=== PATIENT | female | born 1935 | race Caucasian/White ===

== ENCOUNTER 2016-12-29 14:57 | Inpatient (IN) ==
[2016-12-29 15:46] LABS: MANUAL DIFF NEEDED? NO
[2016-12-29 15:50] LABS: URINE SOURCE CLEAN CATCH
[2016-12-29 15:50] LABS: BASO% 0.6 % (0.0-0.8); EOS# 0.12 X1000 (0.0-0.7); EOS% 1.9 % (0.0-10.0); HEMATOCRIT 38.1 % (37.0-47.0); HEMOGLOBIN 12.7 g/dL (12.0-16.0); LYMPH# 1.84 X1000 (1.2-3.4); LYMPH% 29.6 % (20.5-51.1); MCH 31.2 PG (27-31); MCHC 33.3 g/dL (33-37); MCV 93.6 FL (81-99); MONO# 0.49 X1000 (0.11-0.59); MONO% 7.9 % (1.7-9.3); MPV 11.3 FL (7.4-10.4); PLT 267 X1000 (130-400); RBC 4.07 XMIL (4.2-5.4)
[2016-12-29 15:56] LABS: BILIRUBIN URINE SMALL (NEGATIVE); BLOOD URINE SMALL (NEGATIVE); COLOR YELLOW; GLUCOSE URINE TRACE mg/dL (NEGATIVE); LEUKOCYTES URINE LARGE (NEGATIVE); NITRITE URINE NEGATIVE (NEGATIVE); PROTEIN URINE 200 mg/dL (NEGATIVE); TURBIDITY URINE HAZY (CLEAR); UROBILINOGEN URINE 8 mg/dL (NORMAL)
[2016-12-29] MEDS ORDERED: NS 1,000 ML IV ONE ×2 (15:56→15:58)
[2016-12-29 15:58] LABS: UR EPITHELIAL CELLS <10 /HPF (<10); URINE BACTERIA NEGATIVE /HPF; URINE MICRO REVIEW NEEDED? YES; URINE RBC <10 /HPF (<10); URINE WBC TNTC /HPF (<10)
[2016-12-29] MEDS ORDERED: ROCEPHIN 1 GM/NS 1 GM/50 ML IVPB IV ONE (15:59)
[2016-12-29 16:00] LABS: INR 1.12; PROTIME 11.8 Seconds (9.2-11.7); PTT 29.5 Seconds (22.0-36.0)
[2016-12-29 16:12] LABS: URINE CASTS GRANULAR PRESENT; URINE CRYSTALS CA OXALATE PRESENT
[2016-12-29 16:14] LABS: ALBUMIN 4.5 g/dL (3.5-5.0); CALCIUM 9.5 mg/dL (8.8-10.2); MAGNESIUM 2.2 mg/dL (1.5-2.7); POTASSIUM 3.7 mmol/L (3.5-5.1); TOTAL BILIRUBIN 1.13 mg/dL (0.20-1.00); TOTAL PROTEIN 7.3 g/dL (6.3-8.3)
--- NOTE | 2016-12-29 17:34 | Diag Imaging Result Document ---
PROCEDURE NAME: HEAD W/O CONTRAST - 12/29/2016 CT HEAD WITHOUT CONTRAST: FINDINGS: A dose reduction protocol was used. Compared with 03/28/2015. 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 There are mild chronic microvascular ischemic changes elsewhere. There is no indication of recent infarct, although acute infarcts may not be immediately visible. There is no evidence of hemorrhage, mass effect or midline shift. There is no skull fracture. 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 No visible acute process. No hemorrhage or mass effect.
--- NOTE | 2016-12-29 17:38 | PROVIDER DOCUMENTATION ---
This chart was entered by Reyes Leblanc Scribe, acting as scribe for Ricardo Stringer MD. HPI-Syncope/Dizziness - General Chief Complaint: Syncope Stated Complaint: SYNCOPE Time Seen by Provider: 12/29/16 15:26 Source: patient Allergies/Adverse Reactions: Patient Allergies Allergy/AdvReac Type Severity Reaction Status Date / Time No Known Allergies Allergy Verified 12/29/16 15:24 Home Medications: Home Medication List Medication Instructions Recorded Confirmed Last Taken Type Amlodipine [Norvasc] 1 tab PO DAILY 12/21/15 12/29/16 12/21/15 08:00 History Cyanocobalamin (Vitamin B-12) 1,000 mcg IJ DIRECTED 12/21/15 12/29/16 09:00 History [Cyanocobalamin Injection] Levothyroxine [Synthroid] 50 microgm PO DAILY 12/21/15 12/29/16 12/21/15 08:00 History Metoprolol [Lopressor] 50 mg PO BID 12/21/15 12/29/16 12/21/15 21:00 History Rivaroxaban [Xarelto] 10 mg PO DAILY@0600 #35 tablet 12/27/15 12/29/16 Unknown Rx Lisinopril 20 mg PO DAILY 12/29/16 12/29/16 Unknown History - History of Present Illness-Syncope/Dizzy Nature of Presenting Problem: PT WAS IN THE YARD AND PASSED OUT.EMS REPORTS WHEN THEY PLACED HER ON THE MONITOR SHE WAS NOT IN A PASSED RHYTHM THEN ABOUT 3 MINUTES PASSED AND THE PACER SPIKES STRTED SHOWING BACK UP ON THE MONITOR AND PT BECAME A&OX3 If witnessed syncope, by whom?: SONS Prior Episodes: reports: single episode today Onset/Duration: reports: just prior to arrival Timing: reports: gone now Position/Activity at time of episode: reports: standing Symptoms prior to episode: reports: other (WEAKNESS) Duration of preceding symptoms? (mins): 10 Context: reports: confused after event Loss of Consciousness: no loss of consciousness Location of injury. (If syncope resulted in an injury.): reports: none Current Symptoms: reports: none/feels normal Recently Seen Here or By Another Healthcare Provider: No Review of Systems - Adult - REVIEW OF SYSTEMS - ADULT Constitutional: denies: chills, fever, fatique Eyes: denies: discharge, decreased vision, double vision Ears, Nose, Mouth & Throat: denies: ear pain, mouth swelling, throat pain, throat swelling Cardiovascular: denies: chest pain, heart murmur, irregular heart rate, palpitations Respiratory: denies: cough, shortness of breath, wheezing Gastrointestinal: denies: abdominal pain, nausea, vomiting Genitourinary: denies: dysuria, flank pain, hematuria Musculoskeletal: denies: back pain, muscle aches, neck pain Integumentary: denies: hives, itching, rash Neurological: reports: syncope. 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 ) Other Conditions: reports: other cancer (skin ) - PRIOR SURGERIES/PROCEDURES Surgical/Procedure History: reports: pacemaker, hysterectomy, , orthopedic (extremity), other (lung sx) - IMMUNIZATION STATUS Childhood Immunizations: See Nurse Assessment Flu Vaccine: See Nurse Assessment - SOCIAL HISTORY Smoking: denies Substance Use: none/never Alcohol Use Frequency: never Living Situation: family Physical Exam-General - PHYSICAL EXAM-ADULT Initial Vital Signs Reviewed: Yes - CONSTITUTIONAL General Appearance: appears well, alert, no apparent distress - EYES Eyes: PERRL/EOMI, pink conjunctivae, anisocoria - HEAD, EARS, NOSE, MOUTH & THROAT HENMT: normocephalic/atraumatic, moist mucous membranes, normal ENT inspection, TMs normal, pharynx normal - NECK Neck: non-tender, full range of motion, supple, normal inspection - RESPIRATORY Respiratory: chest non-tender, lungs clear, normal breath sounds, no pleuratic chest pain, no respiratory distress, no accessory muscle use - CARDIOVASCULAR Cardiovascular: normal peripheral pulses, regular rate, rhythm, no edema, no gallop, no JVD, no murmur - GASTROINTESTINAL (ABDOMEN) Abdominal Exam: normal bowel sounds, non tender, soft, no organomegaly, no pulsatile mass - LYMPHATIC Lymphatic: no adenopathy - MUSCULOSKELETAL Back Exam: normal inspection, no CVA tenderness, no vertebral tenderness Extremity: normal range of motion, non-tender, normal gait, normal inspection, no pedal edema, no calf tenderness, normal capillary refill - SKIN Integumentary: normal color, normal turgor, warm/dry - PSYCHIATRIC Psych/Mental Status: normal mood/affect, normal thought content, normal thought process, oriented x 3 Progress - PLAN OF CARE/RESULTS Progress/Plan/Lab Results: Vital Signs - 8 hr 12/29/16 15:17 Pulse Rate 77 Respiratory Rate 15 Blood Pressure 92/79 O2 Sat by Pulse Oximetry 99 Laboratory Results - last 24 hr 12/29/16 12/29/16 12/29/16 14:50 14:50 14:50 WBC 6.21 RBC 4.07 L Hgb 12.7 Hct 38.1 MCV 93.6 MCH 31.2 H MCHC 33.3 RDW Std Deviation 13.3 Plt Count 267 MPV 11.3 H Immature Gran % (Auto) 0.0 Neut % (Auto) 60.0 Lymph % (Auto) 29.6 [place] % (Auto) 7.9 Eos % (Auto) 1.9 Baso % (Auto) 0.6 Immature Gran # (Auto) 0.00 Neut # (Auto) 3.72 Lymph # (Auto) 1.84 [place] # (Auto) 0.49 Eos # (Auto) 0.12 Baso # (Auto) 0.04 PT INR PTT (Actin FS) D-Dimer 0.17 Sodium 138 Potassium 3.7 Chloride 99 Carbon Dioxide 25 Anion Gap 14 BUN 16 Creatinine 0.9 Estimated GFR/1.73 m2 60 BUN/Creatinine Ratio 18 Glucose 140 H Calculated Osmolality 279 Calcium 9.5 Magnesium 2.2 Total Bilirubin 1.13 H AST 16 ALT 8 L Alkaline Phosphatase 115 H Creatine Kinase 47 Troponin T Qca-R-Fbikeajgsdb Pept Total Protein 7.3 Albumin 4.5 Globulin 2.8 Albumin/Globulin Ratio 1.6 Urine Source Urine Color Urine Turbidity Urine pH Ur Specific [place] Urine Protein Ur Glucose (Stick) Ur Ketones (Stick) Urine Blood Urine Nitrite Urine Bilirubin Urobilinogen Dipstick Urine Leukocytes Urine WBC (Auto) Urine RBC (Auto) U Epithel Cells (Auto) Urine Bacteria (Auto) Urine Crystals Small Round Cells Urine Casts Urine Yeast-like Cells 12/29/16 12/29/16 12/29/16 14:50 14:50 14:50 WBC RBC Hgb Hct MCV MCH MCHC RDW Std Deviation Plt Count MPV Immature Gran % (Auto) Neut % (Auto) Lymph % (Auto) [place] % (Auto) Eos % (Auto) Baso % (Auto) Immature Gran # (Auto) Neut # (Auto) Lymph # (Auto) [place] # (Auto) Eos # (Auto) Baso # (Auto) PT 11.8 H INR 1.12 PTT (Actin FS) 29.5 D-Dimer Sodium Potassium Chloride Carbon Dioxide Anion Gap BUN Creatinine Estimated GFR/1.73 m2 BUN/Creatinine Ratio Glucose Calculated Osmolality Calcium Magnesium Total Bilirubin AST ALT Alkaline Phosphatase Creatine Kinase Troponin T < 0.010 Imi-L-Ycftagrcyxw Pept 1412 H Total Protein Albumin Globulin Albumin/Globulin Ratio Urine Source Urine Color Urine Turbidity Urine pH Ur Specific [place] Urine Protein Ur Glucose (Stick) Ur Ketones (Stick) Urine Blood Urine Nitrite Urine Bilirubin Urobilinogen Dipstick Urine Leukocytes Urine WBC (Auto) Urine RBC (Auto) U Epithel Cells (Auto) Urine Bacteria (Auto) Urine Crystals Small Round Cells Urine Casts Urine Yeast-like Cells 12/29/16 15:29 WBC RBC Hgb Hct MCV MCH MCHC RDW Std Deviation Plt Count MPV Immature Gran % (Auto) Neut % (Auto) Lymph % (Auto) [place] % (Auto) Eos % (Auto) Baso % (Auto) Immature Gran # (Auto) Neut # (Auto) Lymph # (Auto) [place] # (Auto) Eos # (Auto) Baso # (Auto) PT INR PTT (Actin FS) D-Dimer Sodium Potassium Chloride Carbon Dioxide Anion Gap BUN Creatinine Estimated GFR/1.73 m2 BUN/Creatinine Ratio Glucose Calculated Osmolality Calcium Magnesium Total Bilirubin AST ALT Alkaline Phosphatase Creatine Kinase Troponin T Duz-E-Hntsuvrumao Pept Total Protein Albumin Globulin Albumin/Globulin Ratio Urine Source CLEAN CATCH Urine Color YELLOW Urine Turbidity HAZY Urine pH 7.0 Ur Specific [place] 1.020 Urine Protein 200 A Ur Glucose (Stick) TRACE Ur Ketones (Stick) NEGATIVE Urine Blood SMALL A Urine Nitrite NEGATIVE Urine Bilirubin SMALL A Urobilinogen Dipstick 8 A Urine Leukocytes LARGE A Urine WBC (Auto) TNTC A Urine RBC (Auto) <10 U Epithel Cells (Auto) <10 Urine Bacteria (Auto) NEGATIVE Urine Crystals CA OXALATE PRESENT Small Round Cells Not Reportable Urine Casts GRANULAR PRESENT Urine Yeast-like Cells NONE SEEN Orders Category Date Time Status Cardiac Monitoring DIRECTED Care 12/29/16 15:31 Active Saline Loc NOW Care 12/29/16 15:31 Active CHEST-2 VIEWS [RAD] Stat Exams 12/29/16 15:31 Taken HEAD W/O CONTRAST [CT] Stat Exams 12/29/16 15:56 Completed CBC WITH ELECTRONIC DIFF [HEME] Stat Lab 12/29/16 14:50 Completed CK PROFILE [SP CHEM] Stat Lab 12/29/16 14:50 Completed COMPREHENSIVE METABOLIC PANEL [CHEM] Stat Lab 12/29/16 14:50 Completed D-DIMER [CHEM] Stat Lab 12/29/16 14:50 Completed MAGNESIUM [CHEM] Stat Lab 12/29/16 14:50 Completed MAGNESIUM [CHEM] Stat Lab 12/29/16 16:31 Ordered PRO B-NATRIURETIC PEPTIDE Stat Lab 12/29/16 14:50 Completed PROTIME WITH INR [COAG] Stat Lab 12/29/16 14:50 Completed PTT [COAG] Stat Lab 12/29/16 14:50 Completed TROPONIN T Stat Lab 12/29/16 14:50 Completed URINALYSIS [URINALYSIS] Stat Lab 12/29/16 15:29 Completed URINE MANUAL MICROSCOPIC [URINALYSIS] Stat Lab 12/29/16 15:29 Completed 0.9% Sodium Chloride Inj [Ns] 1,000 ml Med 12/29/16 15:58 Active IV 250 mls/hr 0.9% Sodium Chloride Inj [Ns] 1,000 ml Med 12/29/16 15:56 Discontinued IV 999 mls/hr CefTRIAXONE 1 GM/NS [Rocephin 1 gm/Ns] Med 12/29/16 15:59 Discontinued 1 gm in 50 ml IV NOW EKG [EKG] Stat Ther 12/29/16 15:30 Ordered Result Diagrams: 12/29/16 14:50 12/29/16 14:50 - REASSESSMENT Reassessment #1 Time Reassessed: 17:37 Status: improving (Pt is doing better and awaiting [facility] to interagate the pacer and IV Rocephin given for UGI) Reassessment #2 Time Reassessed: 17:51 Status: improving (Per [facility] tech - no abnormal findings on interagation, but the pacer does not record V-tach. Per EMS - the pacer was not pacing - migh be caused her heart was racing, etc. Per family request, pt will be observed.) - EKG 1 Time of EKG reading by physician:: 15:10 EKG Read and Signed by:: Ricardo Stringer Rate: 70 Rhythm: VENTRICULAR PACED RHYTHM [place]: normal QRS: normal RI Interval: normal ST Wave: normal - CONSULTS/PCP/HOSPITALIST Notification Time Discussed: 17:54 Reason/Comments: Admit to Hopsitalist Departure - Departure Time of Disposition Decision: 17:51 DIAGNOSIS: Syncope Qualifiers: Syncope type: unspecified Qualified Code(s): R55 - Syncope and collapse UTI (urinary tract infection) Qualifiers: Urinary tract infection type: acute cystitis Hematuria presence: without hematuria Qualified Code(s): N30.00 - Acute cystitis without hematuria Disposition: ADMITTED INPATIENT 09 Certified Medical Emergency: Emergent Condition: Stable Referrals and Follow-Ups: Wilma Chen MD [Primary Care Provider] - - Critical Care Note This patient required my direct & personal management of CC.: No This chart was documented by the indicated scribe, (Reyes Leblanc Scribe) and accurately reflects the services I performed and decisions made by me, Ricardo Stringer MD, as attested by the provider's signature.
--- NOTE | 2016-12-29 19:22 | Diag Imaging Result Document ---
PROCEDURE NAME: CHEST-2 VIEWS - 12/29/2016 CHEST 2 VIEWS: COMPARISON: 01/17/2015. FINDINGS: There is cardiomegaly similar to the previous exam. There is transvenous cardiac pacemaker or defibrillator again seen. The lungs appear clear. There is a tiny left pleural effusion which is stable. There is no pneumothorax seen. There is old fracture deformity of the right proximal humerus noted. IMPRESSION: Stable cardiomegaly and tiny left pleural effusion. No other evidence of acute disease.
[2016-12-29] MEDS ORDERED: ZOFRAN IV PRN (21:13)
[2016-12-29] MEDS ORDERED: TYLENOL PO PRN (21:13)
--- NOTE | 2016-12-29 22:03 | HISTORY AND PHYSICAL ---
PRIMARY CARE PROVIDER: Wilma Chen MD CHIEF COMPLAINT: Syncope. HISTORY OF PRESENT ILLNESS: This is an 81-year-old female with a history of atrial fibrillation who has a pacemaker, hypertension, hypothyroidism, who was out in her yard today when she had a syncopal episode. Reportedly her son was there with her. She passed out per the patient. Her son caught her. She did not hit her head or the ground. EMS was called. When the warehouse associate driver arrived leads for cardiac monitoring was placed. Apparently roughly 3 minutes passed where they did not show pacer spiking from her pacemaker and the patient again had a syncopal episode. After that the pacer spikes started showing up again on the monitor and she became alert and oriented x3. I did not see a note of what her heart rate was at this time. However she reportedly did vomit once during this. She does not recall having nausea. She states she did not have any chest pain. She was not diaphoretic. She did have mild weakness right after the spell and she became dizzy before she passed out. She also had no complaint of headache or vertigo or dizziness after the spell. She also denied visual changes or any kind of neurovascular deficits. In the emergency room [facility] was contacted who came out and evaluated the pacemaker and found that it was functioning properly. Apparently, the pacemaker does not record ventricular tachycardia and again per the EMS the pacer was not pacing. This possibly could have been related to elevated heart rate. An EKG was taken which showed a ventricularly paced rhythm in the 70s. Laboratory data was grossly normal other than a urine that was leukocyte esterase positive. The patient will be admitted in observation status for further evaluation and treatment. PAST MEDICAL HISTORY: 1. Esophageal cancer. 2. Skin cancer. 3. Lung cancer. 4. Atrial fibrillation with a chronic pacemaker. 5. Chronic anticoagulation secondary to atrial fibrillation. 6. Hypertension. 7. Hypothyroidism. PREVIOUS SURGICAL HISTORY: 1. . 2. Pacemaker implantation. 3. Hysterectomy. 4. Left foot surgery. SOCIAL HISTORY: Denies history of tobacco, alcohol or illicit drug use or abuse. She has family members who stay with her. She did live alone up until 2016. FAMILY HISTORY: Family history positive for coronary artery disease. ALLERGIES: No known drug allergies. HOME MEDICATIONS: 1. Norvasc 5 mg 1 p.o. daily. 2. Synthroid 50 mcg p.o. daily. 3. Vitamin B12 1000 mcg injection as directed. 4. Lopressor 50 mg p.o. b.i.d. 5. Xarelto 10 mg p.o. daily . 6. Lisinopril 20 mg p.o. daily. REVIEW OF SYSTEMS: Fourteen point review of systems conducted with the patient. Pertinent positives listed above in the HPI. All other systems were reviewed and found to be negative. PHYSICAL EXAMINATION: VITAL SIGNS: Pulse 69, respirations 16, blood pressure 142/63, oxygen saturation 98% on room air. GENERAL: Very pleasant 81-year-old female, alert and oriented x3. Sitting in the ER stretcher. Denies complaint. HEENT: Head is atraumatic, normocephalic. Pupils equal, round, reactive to light. Extraocular eye movement is intact. Sclerae is anicteric. Conjunctivae is pink. Oral mucosa is moist. NECK: Supple. No JVD. No thyromegaly. Trachea is midline. No cervical lymphadenopathy. CARDIAC: Regular rhythm. The patient is paced on the monitor. A 2 to 3/6 systolic ejection murmur noted. No gallops. No rubs. LUNGS: Clear to auscultation bilaterally. No rhonchi, wheezes or rales. Symmetrical rise and fall with respirations. ABDOMEN: Soft, nondistended, nontender. Bowel sounds present in all 4 quadrants. Normoactive. No pulsatile mass. No organomegaly. GENITOURINARY: The patient voids. No bladder distention. Otherwise deferred. MUSCULOSKELETAL: Patient's extremities have full range of motion, 4/5 upper and lower extremity strength that is equal. SKIN: [place], warm, dry and intact. No acute lesions or rash. NEUROLOGICAL: Alert and oriented x3. Cranial nerves 2-12 grossly intact. DIAGNOSTIC DATA: CT of the head shows an old infarct at the left parietoccipital junction similar to prior. No acute process. No hemorrhage, no mass effect. Chest x-ray. Stable cardiomegaly with a tiny left pleural effusion. No acute disease. LABORATORY DATA: WBC 6.21, hemoglobin 12.7, hematocrit 38.1, platelet count 267,000. PT 11.8, INR 1.12, D-dimer 0.17. Sodium 138, potassium 3.7, chloride 99, carbon dioxide 25, BUN 16, creatinine 0.9, glucose 140, CK 47. Troponin less than 0.010. Urine leukocyte esterase positive, too numerous to count WBCs. ASSESSMENT AND PLAN: 1. Syncopal episode unknown etiology. The patient's pacemaker was interpreted and found to be functioning properly. Will place the patient on telemetry in observation status and monitor overnight. 2. Urinary tract infection. Rocephin 1 g given in the emergency room. Will continue 1 g of Rocephin IV daily. 3. Hypertension. Continue Norvasc and lisinopril. 4. Atrial fibrillation with pacemaker. Continue Xarelto and metoprolol. 5. Hypothyroidism. Check a TSH level. Continue patient's Synthroid. Further recommendations per patient clinical course. Dictated by DEEP Choudhury for Kp Suazo MD cc: MD Kp Herron MD
[2016-12-30] MEDS ORDERED: XARELTO PO SCH (06:00)
[2016-12-30] MEDS: SYNTHROID PO SCH (06:07)
--- NOTE | 2016-12-30 06:20 | EKG Report ---
Test Performed on : 12/30/2016 05:20:19 AM Test Reason : chest pain Blood Pressure : / mmHG Vent. Rate : 070 BPM Atrial Rate : 312 BPM P-R Int : 000 ms QRS Dur : 178 ms QT Int : 456 ms P-R-T Axes : 000 -58 097 degrees QTc Int : 492 ms Ventricular-paced rhythm Abnormal ECG No previous ECGs available Confirmed by Jeancarlos Funes MD ([id number]) on 12/30/2016 7:32:33 AM
[2016-12-30 07:00] LABS: MANUAL DIFF NEEDED? NO
[2016-12-30 07:10] LABS: BASO% 0.5 % (0.0-0.8); EOS# 0.09 X1000 (0.0-0.7); HEMOGLOBIN 11.7 g/dL (12.0-16.0); LYMPH# 1.46 X1000 (1.2-3.4); LYMPH% 33.2 % (20.5-51.1); MCH 30.6 PG (27-31); MCHC 32.5 g/dL (33-37); MCV 94.2 FL (81-99); MONO# 0.46 X1000 (0.11-0.59); MONO% 10.5 % (1.7-9.3); NEUT% 53.8 % (42.2-75.2); PLT 166 X1000 (130-400); RBC 3.82 XMIL (4.2-5.4)
[2016-12-30 07:37] LABS: AGAP 13; BUN 11 mg/dL (8-22); CALCIUM 8.9 mg/dL (8.8-10.2); CHLORIDE 105 mmol/L (98-107); COSMO 282; POTASSIUM 4.1 mmol/L (3.5-5.1); SODIUM 142 mmol/L (136-145); TCO2 24 mmol/L (25-35)
[2016-12-30] MEDS ORDERED: NORVASC PO SCH (09:00)
[2016-12-30] MEDS: LOPRESSOR PO SCH ×2 (09:22→22:00)
[2016-12-30] MEDS: PRINIVIL PO SCH (09:22)
--- NOTE | 2016-12-30 15:48 | PROGRESS NOTE ---
DATE: 12/30/2016 SUBJECTIVE: Patient reports feeling fine. No more episodes of syncope. She denies any chest pain, just before the episode of syncope. No postictal episode. OBJECTIVE: Vital Signs: Temperature 97.5 degrees, heart rate 69, respiratory rate 19, blood pressure 129/46, O2 saturation 99% on room air. General: This is an 81-year-old female lying in bed, in no acute distress. HEENT: Head is normocephalic, atraumatic. Anicteric sclerae. Pale conjunctivae. Mucous membranes moist. Neck: Supple. No JVD noted. No carotid bruits. No lymphadenopathy. No thyromegaly. Cardiovascular: S1, S2 heard. There is a 3/6 systolic murmur noted in the aortic area. Respiratory: Clear bilaterally to auscultation. No work of breathing or using accessory muscles. Abdomen: Soft, nontender to palpation. No organomegaly. Extremities: No clubbing, cyanosis, or edema. Peripheral pulses present in both legs. Neurological: Patient is alert and oriented x3. Able to move 4 extremities. Cranial nerves 2 through 12 grossly normal. LABORATORY DATA: Reviewed. BMP and CBC normal. ASSESSMENT AND PLAN: 1. Syncopal episode. The patient's pacemaker was interrogated and was found to be okay. Patient is on telemetry and because she had 2 syncopal episodes and apparently it was reported in the [facility] that there was some problem with pacing this patient, I will definitely consult cardiology and if they clear this patient she can be discharged. 2. Urinary tract infection. I do not see any urine culture ordered and the urinalysis shows dirty urine. She has received 1 dose of ceftriaxone in the ER so we are going to await the results of the urine culture to if this patient needs antibiotics or not. I do not think this, of course, will explain the syncope. 3. Hypertension. We will continue with the same management, Norvasc and lisinopril. 4. Atrial fibrillation with pacemaker. Will continue home medications. 5. Hypothyroidism. We have checked TSH and that is okay. We will continue with the same management. 6. Overall this patient is doing good. If patient is cleared by cardiology she can be discharged tomorrow. cc: Ney Samson MD
--- NOTE | 2016-12-30 16:49 | CONSULTATION ---
DATE OF CONSULTATION: 12/30/2016 HISTORY OF PRESENT ILLNESS: Ms. Sandra Ferris is an 81-year-old, lady with history of atrial fibrillation, hypertension, hypothyroidism, permanent pacemaker implantation and valvular heart disease who was at home. She passed out and commercial litigation associate called and she had completely lost consciousness and these symptoms were not proceeded with any palpitations or chest pain. It came on suddenly. No associated diaphoresis. When the symptoms started she became dizzy and passed out. She came to the emergency room and permanent pacemaker was interrogated which was functioning appropriately. She also has noted to be having urinary tract infection which has been treated and her blood pressure was 92/46 when she came in. REVIEW OF SYSTEMS: A 14-point review of systems was done. GI: There is no history of nausea, vomiting, diarrhea. There is no history of hematemesis or melena. Central nervous system: No focal weakness to suggest a CVA or TIA. Genitourinary: There is no dysuria or hematuria. She is on anticoagulation therapy. There is no bleeding diathesis. PAST MEDICAL HISTORY: 1. Atrial fibrillation. 2. Anticoagulation therapy. 3. Valvular disease with aortic regurgitation and mitral regurgitation. 4. Permanent pacemaker, [employer] implanted. 5. 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 6. Hypertension. 7. Carotid disease. 8. 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 9. Esophageal cancer. 10. History of thyroid disorder. HOME MEDICATIONS: Amlodipine 5 mg a day, metoprolol 50 b.i.d., Xarelto, lisinopril 20, metoprolol 50 b.i.d., levothyroxine 50. ALLERGIES: She is not known to be allergic to any medication. SOCIAL HISTORY: She does not smoke. Does not drink. PHYSICAL EXAMINATION: Vital Signs: Blood pressure when she came in was 92/79. Today at the time of my examination, blood pressure 129/46. Cardiovascular: Normal jugular venous pressure. There was a right carotid bruit. First and second heart sounds were heard. There was early diastolic murmur. There was systolic murmur in the mitral area and early diastolic murmur in the aortic area. There is no S3 gallop. Respiratory: Normal air entry. No crepitations or rhonchi. Abdomen: Soft, nontender. There was no guarding or rigidity. Bowel sounds were heard. Central nervous system: Alert and oriented. Was moving all 4 extremities. Extremities: Examination of extremities revealed no pedal edema. HEENT: Atraumatic, normocephalic. Pupils were equal and reacting to light. LABORATORY STUDIES: Sodium 142, potassium 4.1, BUN 11, creatinine 0.5. Cardiac enzymes negative. Hematology: Hemoglobin 11.7, hematocrit 36, platelet count of 166,000. Urine was positive for esterase. Chest x-ray revealed stable cardiomegaly with tiny pleural effusion. 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 Otherwise nothing remarkable. ASSESSMENT AND PLAN: Ms. Sandra Ferris is an 81-year-old, lady with history of esophageal cancer, adeno cancer in the past, chronic atrial fibrillation, mitral and aortic valvular disease, hypothyroidism, hypertension who had syncopal episode. Her pacemaker was functioning appropriately. 1. Her low blood pressure could be cause of her hypotension. Given this we will discontinue the Norvasc. We will get orthostatics as well. 2. She has got a right carotid bruit and has had ascending aorta aneurysm measuring 4 cm in the past. We will get a CT scan of the ascending aorta and then neck to assess the aneurysm as well as look at the carotid arteries. We will get and a limited echocardiogram to assess left ventricular systolic function. 3. We will set her up to undergo a Lexiscan Cardiolite stress test to rule out ischemia. 4. Atrial fibrillation. On metoprolol 50 b.i.d. Will recommend continuing her beta-blockers and anticoagulation therapy. She is on Xarelto 10. We will change it to Xarelto 20 mg and will make appropriate adjustment to Xarelto as well. 5. Hypothyroidism. She is on levothyroxine. I have not made any changes. Thanks for the consult. We will follow hospital course. cc: Reyes Pandey MD
--- NOTE | 2016-12-30 17:47 | Diag Imaging Result Document ---
PROCEDURE NAME: ANGIOGRAM/NECK - 12/30/2016 CT ANGIOGRAPHY OF THE NECK WITH 3D MIPS: FINDINGS: There is marked beading of the left vertebral artery. This is narrowed to a string-like diameter of less than 2 mm on axial image 57. Both intracranial internal carotid arteries are patent. The left proximal internal carotid artery is very tortuous, producing a 360-degree loop. There are calcifications in the bulb on the left side and particularly on the right side. There is also a marked narrowing of the common carotid artery on the left which is narrowed to less than 3 mm in 2 planes on image 230. While there is some calcification, the majority of the narrowing is due to a noncalcified material. There appears to be some ulcerated plaque distal to this. The possibility of a focal dissection cannot be excluded. The remainder of the common carotid artery is within normal limits. There is apical pleural scarring on the right. Some fibrosis is also apparently present in the posteromedial left upper lobe. IMPRESSION: Atypical stenoses of the common carotid and vertebral arteries on the left. The possibility of vasculitis or dissection cannot be excluded.
[2016-12-31] MEDS: XARELTO PO SCH (05:42)
[2016-12-31] MEDS: SYNTHROID PO SCH (06:11)
[2016-12-31 10:27] LABS: URINE SOURCE CLEAN CATCH
[2016-12-31 10:31] LABS: BILIRUBIN URINE NEGATIVE (NEGATIVE); BLOOD URINE MODERATE (NEGATIVE); COLOR YELLOW; GLUCOSE URINE NEGATIVE (NEGATIVE); LEUKOCYTES URINE TRACE (NEGATIVE); NITRITE URINE NEGATIVE (NEGATIVE); PROTEIN URINE 50 mg/dL (NEGATIVE); SP GRAVITY URINE 1.041; TURBIDITY URINE HAZY (CLEAR); URINE MICRO REVIEW NEEDED? YES; UROBILINOGEN URINE 3 mg/dL (NORMAL)
[2016-12-31 10:36] LABS: UR EPITHELIAL CELLS <10 /HPF (<10); URINE BACTERIA NEGATIVE /HPF; URINE RBC <10 /HPF (<10); URINE WBC <10 /HPF (<10)
[2016-12-31 10:51] LABS: URINE CASTS NONE SEEN; URINE CRYSTALS CA OXALATE PRESENT
--- NOTE | 2016-12-31 11:23 | PROGRESS NOTE ---
DATE: 12/31/2016 SUBJECTIVE: This patient states that she is feeling fine. She is not having more episodes of syncope. Cardiology evaluated this patient and they recommended some studies including a stress test today. We will follow their recommendations. OBJECTIVE: Vital Signs: Temperature 97.5 degrees, pulse 70, respiratory rate 18, blood pressure 153/57, O2 saturation 99 on room air. HEENT: Normocephalic. No trauma. PERRLA. Neck: Supple. No JVD. No masses. Central trachea. Cardiovascular: RRR, 3/6 systolic murmur. Chest: Clear to auscultation. No wheezing. No rales. Abdomen: Soft, nontender, nondistended. No hepatosplenomegaly. Extremities: No clubbing, cyanosis, or edema. Neurological: The patient is alert and oriented x3. No focal neurological deficit. LABORATORY: New urinalysis negative for infection. ASSESSMENT AND PLAN: 1. Syncopal episode. This patient has been having before low blood pressure. Cardiology Department evaluated this patient and they discontinued the Norvasc. This patient has a right carotid bruit and apparently has had ascending aortic aneurysm. For that we are getting a CT scan and echocardiogram. This patient will have today a Lexiscan Cardiolite stress test to rule out ischemia as well. 2. Atrial fibrillation. This patient is on metoprolol. Continue the same management and anticoagulation. 3. Hypothyroidism. Continue with levothyroxine. 4. Questionable urinary tract infection. We had an urinalysis done upon admission that showed some WBC and blood but I repeated it again and no signs of infection at this moment. cc: Elliot Dobbins MD
--- NOTE | 2016-12-31 12:32 | ECHO REPORT ---
ORDER DATE: 12/30/2016 MEASUREMENTS: Left ventricular end-diastolic diameter 4.4, end-systolic diameter 2.6, septal thickness 1.1, posterior wall thickness 1.1, left atrium 6, aortic root 3.6. SUMMARY: 1. Adequate quality study. 2. Aortic valve is sclerotic but opens adequately on 2-dimensional images with a peak gradient of 10 mmHg. There is mild aortic regurgitation. Mild thickening of mitral valve leaflets demonstrated with adequate mitral valve opening evident. There is mild to moderate mitral regurgitation. Tricuspid valve was without evidence of structural abnormality with mild to moderate tricuspid regurgitation. Estimated systolic PA pressure by Doppler is 50 mmHg. Pulmonic valve is without structural abnormality with mild pulmonic insufficiency. The aortic root is normal size. 3. Normal left ventricular dimensions demonstrated. Estimated left ventricular ejection fraction is approximately 70-75%. No regional wall motion abnormalities are evident. Severe biatrial enlargement is demonstrated. On early parasternal views, there is suggestion of an echodensity posteriorly in the left atrium but this cannot be confirmed on other views. It is suspected this likely represents prominent fat in the region of left atrium just above the left atrial appendage and beneath the left upper pulmonary vein. The right ventricle is normal size with grossly preserved right ventricular systolic function. Pacemaker lead is evident in the right ventricle. 4. No pericardial effusion. 5. Appearance of inferior vena cava suggests normal central venous pressure. CONCLUSIONS: 1. Aortic valve sclerosis with mild aortic regurgitation. 2. Mild to moderate mitral regurgitation. 3. Mild to moderate tricuspid regurgitation with moderate pulmonary hypertension by Doppler. 4. Estimated left ventricular ejection fraction 70-75%. 5. Severe biatrial enlargement. cc: MD Lucie Yates PA
[2016-12-31] MEDS ORDERED: LEXISCAN ONE (13:09)
[2016-12-31] MEDS: LOPRESSOR PO SCH ×2 (14:38→20:10)
[2016-12-31] MEDS: PRINIVIL PO SCH (14:38)
--- NOTE | 2016-12-31 15:34 | Diag Imaging Result Document ---
PROCEDURE NAME: MYOCARDIAL PERF SCAN, STR/REST - 12/31/2016 TEST: Lexiscan Cardiolite stress test. TECHNIQUE: Lexiscan was infused per standard protocol. There was no chest pain. Stress electrocardiogram nondiagnostic. Atrial fibrillation noted. Nondiagnostic stress electrocardiogram. 10.9 mCi of Cardiolite was injected for the rest phase, 30.7 mCi of Cardiolite was injected for the stress phase. Gated SPECT images were obtained in standard views. FINDINGS: 1. Images revealed significant diaphragmatic attenuation. There is no evidence of ischemia. 2. There was fixed defect in the inferior wall, low-grade. This is likely to represent attenuation defect. There was better tracer uptake on the stress compared to rest. 3. Left ventricular ejection fraction by gated SPECT was 80%. CONCLUSIONS: 1. No chest pain. 2. Nondiagnostic stress electrocardiogram. 3. Myocardial perfusion images revealed no evidence of ischemia. 4. There is low-grade fixed defect in the inferior wall suggestive of diaphragmatic attenuation. 5. Left ventricular ejection fraction 80%. Wall motion was normal. cc: MD Lucie Scales PA
[2017-01-01] MEDS: SYNTHROID PO SCH (06:15)
[2017-01-01] MEDS: XARELTO PO SCH (06:15)
[2017-01-01 06:35] LABS: MANUAL DIFF NEEDED? NO
[2017-01-01 06:41] LABS: BASO% 0.9 % (0.0-0.8); EOS# 0.15 X1000 (0.0-0.7); EOS% 3.3 % (0.0-10.0); HEMATOCRIT 37.1 % (37.0-47.0); HEMOGLOBIN 11.8 g/dL (12.0-16.0); LYMPH% 31.2 % (20.5-51.1); MCH 29.9 PG (27-31); MCHC 31.8 g/dL (33-37); MCV 94.2 FL (81-99); MONO# 0.42 X1000 (0.11-0.59); MONO% 9.4 % (1.7-9.3); MPV 10.8 FL (7.4-10.4); NEUT% 55.2 % (42.2-75.2); PLT 200 X1000 (130-400); RBC 3.94 XMIL (4.2-5.4)
[2017-01-01 06:53] LABS: AGAP 9; BUN 14 mg/dL (8-22); CALCIUM 9.1 mg/dL (8.8-10.2); CHLORIDE 105 mmol/L (98-107); COSMO 285; POTASSIUM 4.4 mmol/L (3.5-5.1); SODIUM 143 mmol/L (136-145); TCO2 29 mmol/L (25-35)
--- NOTE | 2017-01-01 07:28 | CONSULTATION ---
DATE OF CONSULTATION: 01/01/2017 CHIEF COMPLAINT: Left common carotid stenosis. HISTORY: An 81-year-old, white female, presenting with syncopal episodes, felt to be initially due to the dysfunctional pacemaker but proven otherwise after hospitalization. The source of her syncope has been uncertain. Her pacemaker was tested and apparently found to be appropriately functional. PAST MEDICAL HISTORY: She does have a past history of atrial fibrillation, hypertension, hypothyroidism. She also has a history of some type of esophageal cancer or even possible lung cancer. PREVIOUS SURGICAL HISTORY: Includes a pacemaker, , hysterectomy and left foot surgery. MEDICATIONS: At home, Norvasc, Synthroid, vitamin B12, Lopressor, Xarelto and lisinopril. ALLERGIES: No known drug allergies. SOCIAL HISTORY: She denies alcohol or tobacco usage. She has an attentive family. FAMILY HISTORY: Pertinent for coronary artery disease. REVIEW OF SYSTEMS: Pertinent for the syncope. Otherwise negative. PHYSICAL EXAMINATION: Vital Signs: She is afebrile .heart rate 70 and regular. Respiratory rate is 18, blood pressure 147/53. General: She is awake and alert and appropriate. Neck: Harsh carotid bruits heard on the left. There is even a palpable thrill present. Lungs: Bilateral breath sounds are present. Heart: Regular rate and rhythm. Abdomen: Soft. Extremities: Femoral pulses are present. No peripheral edema. She has equal strength in the upper and lower extremities. ASSESSMENT/PLAN: Left common carotid stenosis that has been present in the past. The velocities on her carotid imaging our elevated indicating increasing stenosis. I do not think this is the source of her syncopal episode. She has had no lateralizing symptoms. I do think that this potentially could be best treated with a stent. I would recommend evaluation by someone who places carotid stents, as the best treatment for her. However, if that does not appear to be amenable or recommended, she is still a potential candidate for surgery to relieve her common carotid stenosis. Thank you for the opportunity to see her. cc: Skyler Benavides MD
--- NOTE | 2017-01-01 08:36 | Carotid Study ---
DATE: 12/31/2016 PROCEDURE: Carotid duplex imaging. REFERRING PHYSICIAN: Reyes Pandey MD. INTERPRETING PHYSICIAN: Skyler Benavides MD. TECH: [place]. INDICATIONS: OBSERVED DATA RIGHT LEFT Brachial Blood Pressure Carotid Pulse Bruits: Carotid/Sub DIAGRAM OF ULTRASOUND IMAGING R L RIGHT INT EXT INT EXT LEFT Brooks (cm/s) Brooks (cm/s) Subclavian 85/0 Subclavian 82/0 CCA Proximal 128/17 CCA Proximal 29/8 CCA Mid Not recorded CCA Mid 551/98 CCA Distal 114/24 CCA Distal 232/49 Bulb 87/16 Bulb 147/49 ICA Proximal 86/16 ICA Proximal 33/10 ICA Mid 99/28 ICA Mid 40/13 ICA Distal 122/33 ICA Distal 50/21 ECA 177/14 ECA 39/0 Vertebral 89/20 A Vertebral 57/8 A ICA/CCA Ratio 0.96 ICA/CCA Ratio 0.09* % Stenosis % Stenosis *Based on the common carotid velocity. PHYSICIAN INTERPRETATION: No significant plaque is present in the internals. There is a significant stenosis in the left common carotid mid aspect. This plaque was present in the study on 03/28/2015. It does appear to be more significant now than then. Would recommend further vascular evaluation. cc: MD Reyes Wood MD
[2017-01-01 08:39] VITALS: BP 146/53
[2017-01-01] MEDS: LOPRESSOR PO SCH (09:40)
[2017-01-01] MEDS: PRINIVIL PO SCH (09:40)
--- NOTE | 2017-01-02 05:19 | DISCHARGE SUMMARY ---
ADMISSION DATE: 12/30/2016 DISCHARGE DATE: 01/01/2017 DISCHARGE DIAGNOSES: 1. Syncopal episode. 2. Atrial fibrillation. 3. Hypertension. 4. Left common carotid stenosis. 5. Hypothyroidism. HISTORY OF PRESENT ILLNESS: An 81-year-old female with a past medical history of atrial fibrillation who has a pacemaker, hypertension, and hypothyroidism. Was found outside in the yard the date of admission, on 12/29/2016. She did not hit the head on the ground because her son caught her. EMS was called and she was transferred to [facility]. When national dedicated truck driver arrived, leads for cardiac monitoring were placed. Apparently, roughly 3 minutes passed where they did not show pacer spiking from her pacemaker. The patient again had a syncopal episode. After that, the pacemaker spikes started showing up again on the monitor and she became alert and oriented x3. She was also complaining about vomiting. No chest pain. She was not diaphoretic. She also denied any visual changes or any kind of neurovascular deficits. In the emergency room, [facility] was contacted who came out and evaluated the pacemaker, and found that it was functioning properly. Apparently, the pacemaker does not record ventricular tachycardia. Laboratory was grossly normal and the urine showed leukocytes. The patient was admitted for further treatment and evaluation. HOSPITAL COURSE: She was not placed on antibiotics. We will repeated the urinalysis and it was completely fine. Cardiology department evaluated this patient and they did a nuclear stress test that did not show any big abnormality. An echocardiogram also was performed as well as a head CT, carotid Doppler study, and CT angiogram of the neck. This patient has been improving on a daily basis. Dr. Benavides from the surgery department evaluated this patient because this patient has a significant stenosis in the left common carotid mid aspect. He recommended to be evaluated by vascular surgery because he thinks that a stent placement is a better treatment for this patient. Cardiology department stopped the amlodipine from her medication and we continued with the rest of the medications. Xarelto was increased from 10-20 daily. I personally called [facility] in [place] and I made an appointment for this patient with Dr. Hernandez. They will see this patient on 01/14/2017 at 11 a.m. FOLLOWUP: Follow up with Dr. Pandey in 4 weeks. Also follow up with her primary care doctor in 1 week and follow up with Dr. Hernandez on 01/14/2017 at 11 a.m. I personally talked to her daughter and told her all the instructions. PHYSICAL EXAMINATION: Vital Signs: Temperature 98.2 degrees, pulse 70, respiratory rate 16, blood pressure 146/53, oxygen saturation 100% on room air. HEENT: Head normocephalic. No trauma. PERRLA. Neck: Supple. No JVD. No masses. Central trachea. She has a left carotid bruit. Chest: Clear to auscultation. No wheezing. No rales. Cardiovascular: RRR. Abdomen: Soft, nontender, nondistended. No hepatosplenomegaly. Extremities: No edema. No clubbing. No cyanosis. Neurological Examination: The patient is alert and oriented x3. No focal neurological deficits. LABORATORY DATA: WBC 4.4, hemoglobin 11.8, hematocrit 37.1, platelets 200,000. Sodium 143, potassium 4.4, chloride 105, bicarbonate 29, BUN 14, creatinine 0.6, glucose 94, calcium 9.1. DISCHARGE MEDICATIONS: Levothyroxine 50 mcg p.o. daily, lisinopril 20 mg p.o. daily, Lopressor 50 mg p.o. b.i.d., Xarelto 20 mg p.o. daily, vitamin B12. cc: Elliot Dobbins MD
== END 2017-01-01 13:05 | disposition home or self-care (01) ==
LOC: 3N 14:57 → ED 14:57 → SUATTDRO 22:04
PROVIDERS: ATTEND Internal Medicine

== ENCOUNTER 2017-02-17 04:23 | Inpatient (IN) ==
--- NOTE | 2017-02-17 04:42 | PROVIDER DOCUMENTATION ---
HPI-Respiratory General - General Chief Complaint: Cold Symptoms Stated Complaint: CONGESTION Time Seen by Provider: 02/17/17 04:31 Source: patient, family Allergies/Adverse Reactions: Patient Allergies Allergy/AdvReac Type Severity Reaction Status Date / Time Sulfa (Sulfonamide AdvReac Unknown Verified 02/17/17 04:49 Antibiotics) Home Medications: Home Medication List Medication Instructions Recorded Confirmed Last Taken Type Cyanocobalamin (Vitamin B-12) 1,000 mcg IJ DIRECTED 12/21/15 02/17/17 09:00 History [Cyanocobalamin Injection] Levothyroxine [Synthroid] 50 microgm PO DAILY 12/21/15 02/17/17 12/21/15 08:00 History Metoprolol [Lopressor] 50 mg PO BID 12/21/15 02/17/17 12/21/15 21:00 History Lisinopril 20 mg PO DAILY 12/29/16 02/17/17 Unknown History Acetaminophen [Tylenol] 650 mg PO Q6H PRN PRN #0 tablet 01/01/17 02/17/17 Unknown Rx Rivaroxaban [Xarelto] 20 mg PO DAILY@0600 #30 tablet 01/01/17 02/17/17 Unknown Rx Albuterol [Albuterol Neb] 2.5 mg INH Q4H PRN PRN #1 neb 02/20/17 Unknown Rx Amoxicillin/Pot Clavulanate 875 mg PO Q12HR #14 tablet 02/20/17 Unknown Rx [Augmentin] - History of Present Illness-Resp Nature of Presenting Problem: Pt recently had a left carotid endarterectomy and for the last 3 days has been suffering with a productive cough of green sputum. Review of Systems - Adult - REVIEW OF SYSTEMS - ADULT Constitutional: denies: chills, fever, fatique Eyes: denies: discharge, blurred vision Ears, Nose, Mouth & Throat: denies: ear discharge, sinus problem, nose pain Cardiovascular: denies: chest pain, heart murmur, orthopnea Respiratory: reports: cough, excessive sputum production. denies: wheezing Gastrointestinal: denies: abdominal pain, difficulty swallowing, nausea Genitourinary: denies: dysuria, flank pain Neurological: denies: ataxia, numbness Psychiatric: denies: anxiety, insomnia Endocrine: denies: goiter, cold intolerance, heat intolerance Hematologic/Lymphatic: denies: low blood count, lymphedema Allergic/Immunologic: denies: eczema, hay fever Past History - Adult - PAST MEDICAL HISTORY-ADULT Review of Records: reports: Nursing Assessment Review, Medications Reviewed Major Childhood Illnesses: reports: denies history Respiratory: reports: cancer (lung ) Gastrointestinal: reports: cancer (esophogeal ) Other Conditions: reports: other cancer (skin ) - PRIOR SURGERIES/PROCEDURES Surgical/Procedure History: reports: pacemaker, hysterectomy, , orthopedic (extremity), other (lung sx) - IMMUNIZATION STATUS Childhood Immunizations: See Nurse Assessment Flu Vaccine: See Nurse Assessment Physical Exam-General - PHYSICAL EXAM-ADULT Initial Vital Signs Reviewed: Yes - CONSTITUTIONAL General Appearance: appears well, alert, no apparent distress - EYES Eyes: PERRL/EOMI, pink conjunctivae - NECK Neck: non-tender, full range of motion, supple, normal inspection, other ( discoloration and bruising of the left neck follwing her neck surgery) - RESPIRATORY Respiratory: chest non-tender, lungs clear, normal breath sounds - CARDIOVASCULAR Cardiovascular: normal peripheral pulses, regular rate, rhythm, no edema, no gallop, no JVD - GASTROINTESTINAL (ABDOMEN) Abdominal Exam: normal bowel sounds, non tender, soft, no organomegaly, no pulsatile mass - LYMPHATIC Lymphatic: no adenopathy - MUSCULOSKELETAL Back Exam: normal inspection, no CVA tenderness Extremity: non-tender, normal gait - SKIN Integumentary: normal color, normal turgor, warm/dry - PSYCHIATRIC Psych/Mental Status: normal mood/affect, normal thought content, normal thought process, oriented x 3 Progress - PLAN OF CARE/RESULTS Progress/Plan/Lab Results: Orders Category Date Time Status Cardiac Monitoring DIRECTED Care 02/17/17 05:59 Completed Saline Loc NOW Care 02/17/17 05:58 Completed cxr [CHEST-2 VIEWS] [RAD] Stat Exams 02/17/17 04:36 Completed CBC WITH ELECTRONIC DIFF [HEME] Stat Lab 02/17/17 05:05 Completed CMP [COMPREHENSIVE METABOLIC PANEL] [CHEM] Stat Lab 02/17/17 05:05 Completed INFLUENZA SCREEN A/B Stat Lab 02/17/17 05:00 Completed TROPONIN T Stat Lab 02/17/17 05:05 Completed pro-bnp [PRO B-NATRIURETIC PEPTIDE] Stat Lab 02/17/17 05:05 Completed Albuterol 2.5MG/Ipratrop 0.5MG [Duoneb (A & A)] Med 02/17/17 04:52 Discontinued 3 ml INH NOW ONE Diltiazem [Cardizem] Med 02/17/17 06:00 Discontinued 20 mg IV NOW ONE Furosemide [Lasix] Med 02/17/17 08:11 Discontinued 80 mg IV NOW ONE EKG [EKG] Stat Ther 02/17/17 05:46 Draft Transfer/Admit Order [TRANSFER] Routine Transfer 02/17/17 09:14 Completed Result Diagrams: 02/20/17 06:35 02/20/17 06:35 - CHANGE OF SHIFT REPORT (ED Provider) Report Given and Care Transferred to:: Dr grier Time of Transfer: 06:07 Items Pending: Labs Departure - Departure Date of Disposition Decision: 02/17/17 Time of Disposition Decision: 19:00 DIAGNOSIS: Atrial arrhythmia Disposition: ADMITTED INPATIENT 09 Certified Medical Emergency: Emergent Condition: Stable - Critical Care Note This patient required my direct & personal management of CC.: No
[2017-02-17] MEDS ORDERED: DUONEB (A & A) INH ONE (04:52)
[2017-02-17 05:40] LABS: MANUAL DIFF NEEDED? NO
[2017-02-17 05:43] LABS: BASO% 0.1 % (0.0-0.8); EOS# 0.04 X1000 (0.0-0.7); EOS% 0.4 % (0.0-10.0); HEMATOCRIT 31.2 % (37.0-47.0); HEMOGLOBIN 10.1 g/dL (12.0-16.0); IMM GRAN# 0.03 X1000 (0.0-0.04); IMM GRAN% 0.3 % (0.0-0.5); LYMPH# 0.61 X1000 (1.2-3.4); LYMPH% 5.5 % (20.5-51.1); MCH 30.5 PG (27-31); MCHC 32.4 g/dL (33-37); MCV 94.3 FL (81-99); MONO# 0.98 X1000 (0.11-0.59); MONO% 8.9 % (1.7-9.3); MPV 10.5 FL (7.4-10.4); NEUT% 84.8 % (42.2-75.2); PLT 364 X1000 (130-400); RBC 3.31 XMIL (4.2-5.4)
[2017-02-17] MEDS ORDERED: CARDIZEM IV ONE (06:00)
--- NOTE | 2017-02-17 06:38 | Diag Imaging Result Doc PS360 ---
CHEST-2 VIEWS - 02/17/2017 INDICATION: productive cough TECHNIQUE: COMPARISON: 12/29/2016 FINDINGS: Stable left-sided pacemaker. Stable mild cardiomegaly. There is a new small left basilar pleural effusion. Lungs remain hyperexpanded compatible with COPD. There is trace infiltrate at the left lung base suggesting pneumonia. IMPRESSION: Left lung base pneumonia and small pleural effusion. COPD. Electronically signed by Duane Mckinnon 02/17/2017 6:36 AM
[2017-02-17 06:50] LABS: AGAP 11; ALBUMIN 3.2 g/dL (3.5-5.0); ALKALINE PHOSPHATASE 109 U/L (32-104); BUN 12 mg/dL (8-22); CALCIUM 8.8 mg/dL (8.8-10.2); CHLORIDE 96 mmol/L (98-107); COSMO 277; GOT 20 U/L (10-30); GPT 13 U/L (10-36); POTASSIUM 3.6 mmol/L (3.5-5.1); SODIUM 138 mmol/L (136-145); TCO2 31 mmol/L (25-35); TOTAL BILIRUBIN 1.09 mg/dL (0.20-1.00); TOTAL PROTEIN 6.5 g/dL (6.3-8.3)
--- NOTE | 2017-02-17 06:55 | EKG Report ---
Test Performed on : 02/17/2017 05:48:28 AM Test Reason : coug/cardiomegaly Blood Pressure : / mmHG Vent. Rate : 136 BPM Atrial Rate : 131 BPM P-R Int : 000 ms QRS Dur : 086 ms QT Int : 306 ms P-R-T Axes : 000 040 267 degrees QTc Int : 460 ms Atrial fibrillation. with rapid ventricular response. with premature ventricular or aberrantly condu cted complexes. Voltage criteria for left ventricular hypertrophy Cannot rule out Septal infarct , age undetermined Marked ST abnormality, possible inferior subendocardial injury Marked ST abnormality, possible anterolateral subendocardial injury Abnormal ECG When compared with ECG of 30-DEC-2016 05:20, Atrial fibrillation. has replaced Electronic ventricular pacemaker Vent. rate has increased BY 66 BPM Unconfirmed Result
[2017-02-17] MEDS ORDERED: LASIX IV ONE (08:11)
[2017-02-17] MEDS ORDERED: TYLENOL PO PRN (10:16)
[2017-02-17] MEDS ORDERED: ZOFRAN IV PRN (10:16)
[2017-02-17] MEDS ORDERED: NS 250 ML ONE (11:04)
[2017-02-17] MEDS: ZOSYN 3.375 GM/NS 3.375 GM/50 ML IVPB IV SCH ×3 (11:08→22:47)
[2017-02-17] MEDS: TESSALON PO SCH ×2 (13:24→17:45)
--- NOTE | 2017-02-17 14:55 | HISTORY AND PHYSICAL ---
CHIEF COMPLAINT: Cough and generalized weakness. HISTORY OF PRESENT ILLNESS: 81-year-old female with a past medical history of atrial fibrillation with chronic pacemaker, esophageal skin and lung cancer, chronic anticoagulation secondary to atrial fibrillation, hypertension, hypothyroidism. She was discharged a couple months ago from this hospital secondary to a syncopal episode then this patient was admitted at [facility] and was discharged a couple weeks ago. She has a left neck wound that looks clean, dry and intact. No sign of infection. Probably she was admitted to [facility] to perform a carotid endarterectomy but I do not have any records for that. When she was admitted here last time she had a significant stenosis in the left common carotid mid aspect. Like I mentioned before, this could be related to a carotid endarterectomy or a stent placement. She came in today because of a 10 day history of mild shortness of breath and cough with thick greenish sputum, subjective fever and on and off palpitations. This patient was evaluated in the emergency department and she was found to have a WBC of 11, hemoglobin of 10. Chest x- ray showed a left lung base pneumonia with some small pleural effusion. Heart rate has been between 103, 115 irregular compatible with atrial fibrillation. At the emergency department she received Diltiazem, furosemide and also breathing treatment. This patient will be admitted to this hospital to receive antibiotics, monitor the heart rate, continue home medications. I will consider cardiology consult if the heart rate increases. PAST MEDICAL HISTORY: Esophageal cancer, skin cancer, lung cancer, atrial fibrillation with chronic pacemaker, chronic anticoagulation secondary to atrial fibrillation, hypertension, hypothyroidism. PAST SURGICAL HISTORY: , pacemaker implantation, hysterectomy, left foot surgery, recent endarterectomy and/or stent placement at the level of the left carotid artery, we will ask for records at [facility]. SOCIAL HISTORY: No tobacco, no alcohol. No drug abuse. She has a family member who stays with her. FAMILY HISTORY: Positive for coronary artery disease. ALLERGIES: No known allergies. HOME MEDICATIONS: Lopressor 50 mg p.o. b.i.d., vitamin B12 1000 mcg as directed , Tylenol 650 mg p.o. q.6 hours p.r.n., Xarelto 20 mg p.o. daily, lisinopril 20 mg p.o. daily, levothyroxine 50 mcg p.o. daily. PHYSICAL EXAM: VITAL SIGNS: Temperature 98.4 degrees, pulse 115, respiratory rate 22, blood pressure 119/86, O2 saturation 97 on room air. HEENT: Head normocephalic. No trauma. PERRLA. NECK: Supple. She has left wound that looks clean, dry and intact, no sign of infection with some hematomas around the wound. CHEST: Decreased breath sounds on the left with rhonchi at the base with mild rales. ABDOMEN: Soft, nontender, nondistended. No hepatosplenomegaly. EXTREMITIES: No edema. No clubbing. No cyanosis. NEUROLOGICAL: The patient is alert and oriented x3. No focal deficits. LABORATORY: WBC 11, hemoglobin 10.1, hematocrit 31.2, platelets 364,000. Sodium 138, potassium 3.6, chloride 96, bicarbonate 31, BUN 12, creatinine 0.5, glucose 119, calcium 8.8, AST 20, ALT 13, alkaline phosphatase 109, proBNP 1371, albumin 3.2. ASSESSMENT AND PLAN: 1. Left lower lobe pneumonia, likely related to hospital acquired pneumonia. This patient was discharged a couple weeks ago from [facility] after getting surgery for her left carotid stenosis, she has a left lower lobe consolidation. I will start this patient on Zosyn and I will monitor her x-ray and laboratory daily. 2. Atrial fibrillation with chronic anticoagulation. I will continue with the same medication. She is on Lopressor and Xarelto. The heart rate has been borderline at 110. Will monitor. 3. Hypothyroidism. Continue with levothyroxine. 4. Hypertension. Continue with the same medication. Will continue with lisinopril and also Lopressor. 5. Left carotid stenosis status post left carotid surgery that can be either endarterectomy or stent placement, pending records from [facility]. For the recommendations depending of this patient's hospital course. cc: MD MARIANELA Mckinnon
[2017-02-17] MEDS: DUONEB (A & A) INH PRN ×2 (15:04→21:57)
[2017-02-17] MEDS: MELATONIN PO SCH (21:11)
[2017-02-17] MEDS: LOPRESSOR PO SCH (21:12)
[2017-02-18] MEDS: ZOSYN 3.375 GM/NS 3.375 GM/50 ML IVPB IV SCH ×4 (05:31→23:00)
[2017-02-18] MEDS: XARELTO PO SCH (05:31)
[2017-02-18] MEDS: SYNTHROID PO SCH (06:09)
[2017-02-18 07:01] LABS: MANUAL DIFF NEEDED? NO
[2017-02-18 07:11] LABS: BASO% 0.4 % (0.0-0.8); EOS# 0.16 X1000 (0.0-0.7); EOS% 1.9 % (0.0-10.0); HEMATOCRIT 33.4 % (37.0-47.0); HEMOGLOBIN 10.4 g/dL (12.0-16.0); IMM GRAN# 0.05 X1000 (0.0-0.04); IMM GRAN% 0.6 % (0.0-0.5); LYMPH# 0.77 X1000 (1.2-3.4); LYMPH% 9.3 % (20.5-51.1); MCH 29.6 PG (27-31); MCHC 31.1 g/dL (33-37); MCV 95.2 FL (81-99); MONO# 0.64 X1000 (0.11-0.59); MONO% 7.8 % (1.7-9.3); MPV 10.1 FL (7.4-10.4); PLT 414 X1000 (130-400); RBC 3.51 XMIL (4.2-5.4)
[2017-02-18 07:34] LABS: AGAP 12; ALBUMIN 3.2 g/dL (3.5-5.0); ALKALINE PHOSPHATASE 101 U/L (32-104); BUN 14 mg/dL (8-22); CHLORIDE 96 mmol/L (98-107); COSMO 282; GOT 16 U/L (10-30); GPT 12 U/L (10-36); POTASSIUM 3.3 mmol/L (3.5-5.1); SODIUM 141 mmol/L (136-145); TCO2 33 mmol/L (25-35); TOTAL BILIRUBIN 0.87 mg/dL (0.20-1.00); TOTAL PROTEIN 6.4 g/dL (6.3-8.3)
[2017-02-18] MEDS: PRINIVIL PO SCH (08:05)
[2017-02-18] MEDS: TESSALON PO SCH ×3 (08:05→17:04)
[2017-02-18] MEDS: LOPRESSOR PO SCH ×2 (08:05→21:11)
--- NOTE | 2017-02-18 13:46 | PROGRESS NOTE ---
DATE: 02/18/2017 SUBJECTIVE: She was admitted yesterday, 81-year-old who came in with cough, generalized weakness. Has a history of atrial fibrillation, chronic pacemaker, esophageal skin and lung cancer, chronic anticoagulation secondary to atrial fibrillation, hypertension, hypothyroidism. She was discharged couple months ago from the hospital secondary to syncopal episode which patient was admitted to [facility] discharged couple weeks ago. She has a left neck wound that looks clean, dry and intact. No sign of infection. She is admitted to [place] to perform a carotid endarterectomy but we are trying to obtain those records. She was admitted last time with significant stenosis left common carotid mid aspect. Any rate patient was put in the hospital here. She has a known history esophageal cancer, skin cancer, lung cancer, atrial fibrillation, chronic pacemaker, chronic anticoagulation secondary to atrial fibrillation and hypertension, hypothyroidism. She was awake and alert reporting that she feels better today. OBJECTIVE: Vital Signs: Temperature 97.7 degrees, pulse 88, respirations 19, blood pressure 132/62. HEENT: Pupils are equal, round. Urine output over 1200 mL. LAB: White count 8250, hematocrit 33, platelet count 414,000. Sodium 141, potassium 3.3, chloride 96, bicarb 33, BUN 14, creatinine 0.6. ASSESSMENT AND PLAN: 1. Left lower lobe pneumonia likely hospital related acquired pneumonia, she was discharged couple weeks ago from [place] getting surgery for left carotid stenosis, had left lower lobe consolidation. Continue Zosyn and continue to monitor radiographically and clinically. 2. Atrial fibrillation chronic anticoagulation. Continue same medications. She is on Lopressor, Xarelto. 3. Hypothyroidism. 4. Hypertension. Continue her lisinopril, blood pressure good control. 5. Left carotid stenosis status post left carotid endarterectomy. Neurologically seemed to be doing well. REVIEW HER ORDERS: She is on Tessalon Perles, she is getting Synthroid 50 mcg daily, Prinivil 20 mg a day, melatonin 5 mg at bedtime, Lopressor 5 mg b.i.d., Xarelto 20 mg a day, Zosyn 3.375 g IV q.6 hours. cc: Alvin Clark MD
[2017-02-18] MEDS: MELATONIN PO SCH (21:11)
[2017-02-19] MEDS: ZOSYN 3.375 GM/NS 3.375 GM/50 ML IVPB IV SCH ×3 (04:33→18:53)
[2017-02-19] MEDS: SYNTHROID PO SCH (06:08)
[2017-02-19] MEDS: XARELTO PO SCH (06:08)
[2017-02-19] MEDS: PRINIVIL PO SCH (08:01)
[2017-02-19] MEDS: TESSALON PO SCH ×3 (08:01→18:53)
[2017-02-19] MEDS: LOPRESSOR PO SCH ×2 (08:01→20:12)
--- NOTE | 2017-02-19 16:35 | PROGRESS NOTE ---
DATE: 02/19/2017 SUBJECTIVE: The patient reports feeling much better compared to how she was. She was diagnosed with pneumonia. Denies any fever or chills. She is not requiring any oxygen supplementation. She reports being able to walk around. OBJECTIVE: Vital Signs: Temperature 98.3 degrees, heart rate 80, respiratory rate 18, blood pressure 133/59, O2 saturation 97% on room air. General Examination: This is an 81-year-old female, lying in bed in no acute distress. HEENT: Head is normocephalic and atraumatic. Anicteric sclerae. Pale conjunctivae. Mucous membranes moist. Neck: Supple. No JVD noted. No carotid bruits. She had a left neck wound that looks clean, dry and intact with no signs of infection. Cardiovascular exam: S1, S2 heard. Irregularly irregular heart rhythm. No murmurs, gallops, or rubs. Respiratory exam: Clear bilaterally to auscultation. No work of breathing or using accessory muscles. Abdomen: Soft, nontender to palpation. Bowel sounds present. No organomegaly. Extremities: No clubbing, cyanosis or edema. Peripheral pulses present. Neurological exam: Patient alert and oriented x3. Moves 4 extremities. Cranial nerves 2-12 grossly normal. LABORATORY DATA: Reviewed. ASSESSMENT AND PLAN: 1. Left lower lobe pneumonia. Patient is on Zosyn where she is responding to therapy. Patient is also on bronchodilators. Patient reports being able to walk around, not requiring any oxygen supplementation. So, if she continues doing like this, she may be discharged tomorrow. 2. Atrial fibrillation. Patient is on chronic anticoagulation. Patient is on Lopressor. 3. Hypothyroidism, aware. 4. Hypertension. We will continue home medications. 5. Left carotid artery stenosis status post left carotid endarterectomy. The patient is aware. cc: Ney Samson MD
[2017-02-19] MEDS: MELATONIN PO SCH (20:12)
[2017-02-20] MEDS: ZOSYN 3.375 GM/NS 3.375 GM/50 ML IVPB IV SCH ×3 (01:42→14:10)
[2017-02-20] MEDS: SYNTHROID PO SCH (06:10)
[2017-02-20] MEDS: XARELTO PO SCH (06:10)
[2017-02-20 06:45] LABS: MANUAL DIFF NEEDED? NO
[2017-02-20 06:54] LABS: BASO% 0.5 % (0.0-0.8); EOS# 0.15 X1000 (0.0-0.7); EOS% 2.3 % (0.0-10.0); HEMATOCRIT 32.7 % (37.0-47.0); HEMOGLOBIN 10.3 g/dL (12.0-16.0); IMM GRAN# 0.04 X1000 (0.0-0.04); IMM GRAN% 0.6 % (0.0-0.5); LYMPH# 0.93 X1000 (1.2-3.4); LYMPH% 14.2 % (20.5-51.1); MCH 30.1 PG (27-31); MCHC 31.5 g/dL (33-37); MCV 95.6 FL (81-99); MONO# 0.52 X1000 (0.11-0.59); MPV 9.8 FL (7.4-10.4); NEUT% 74.4 % (42.2-75.2); PLT 438 X1000 (130-400); RBC 3.42 XMIL (4.2-5.4)
[2017-02-20 07:30] LABS: AGAP 9; BUN 8 mg/dL (8-22); CALCIUM 8.7 mg/dL (8.8-10.2); CHLORIDE 98 mmol/L (98-107); COSMO 278; POTASSIUM 3.6 mmol/L (3.5-5.1); SODIUM 140 mmol/L (136-145); TCO2 33 mmol/L (25-35)
[2017-02-20 07:46] VITALS: BP 143/64
[2017-02-20] MEDS: LOPRESSOR PO SCH (08:43)
[2017-02-20] MEDS: TESSALON PO SCH ×2 (08:43→14:10)
[2017-02-20] MEDS: PRINIVIL PO SCH (08:43)
--- NOTE | 2017-02-20 16:25 | DISCHARGE SUMMARY ---
ADMISSION DATE: 02/17/2017 DISCHARGE DATE: 02/20/2017 CONSULTATIONS: None. PERTINENT PROCEDURES: Chest x-ray showed left lung base pneumonia and small pleural effusion and COPD. DISCHARGE DIAGNOSES: 1. Left lower lobe pneumonia. The patient will continue on p.o. antibiotics, as well as albuterol nebulizer. 2. Atrial fibrillation. Continue the patient on Lopressor, as well as anticoagulation. 3. Hypothyroidism. Continue Synthroid. 4. Hypertension. Continue home medications. 5. Left carotid stenosis status post left carotid endarterectomy. HOSPITAL COURSE: Ms. Ferris is an 81-year-old female, who carries a past medical history of esophageal cancer, skin cancer, lung cancer, atrial fibrillation with chronic pacemaker, chronic anticoagulation secondary to atrial fibrillation, hypertension, hypothyroidism, recent endarterectomy and/or stent placement at the level of the left carotid artery. Recently discharged from [facility] secondary to her carotid endarterectomy. The patient came to the ED with 10-day history of mild shortness of breath, cough and greenish sputum, subjective fever, on and off palpitations. She was evaluated in the ED and found to have a white count of 11. Chest x-ray showed a left lung base pneumonia with a pleural effusion. Heart rate was between 103 and 115, irregular, compatible with atrial fibrillation. She was given diltiazem and Lasix, along with a breathing treatment in the ED, as well as started on antibiotics. She was continued on her home Lopressor, as well as Xarelto, continued on IV antibiotics as well as bronchodilators and aggressive pulmonary toilet. She was not requiring any supplemental O2. She has been able to walk in the [place]. She is being switched to p.o. antibiotics for discharge. VITAL SIGNS AT THE TIME OF HER DISCHARGE: Temperature is 97.6 degrees, heart rate 94, respirations 18, blood pressure 143/64, O2 is 97% on room air. DISCHARGE DIET: Healthy heart. DISCHARGE MEDICATIONS: 1. Tylenol 650 mg p.o. q. 6 hours p.r.n. 2. Albuterol nebulizer 2.5 mg inhaled q. 4 hours p.r.n. 3. Augmentin 875 p.o. q. 12 hours. 4. B 12 injections 1000 mcg injected as directed. 5. Synthroid 50 mcg p.o. daily. 6. Lisinopril 20 mg p.o. daily. 7. Lopressor 50 mg p.o. b.i.d. 8. Xarelto 20 mg p.o. daily. FOLLOWUP: The patient is being discharged home with self care. She returned to the ED for any worsening of symptoms. She is to take all antibiotics as instructed. Dictated by DEEP No for Ney Samson MD cc: MD Wilma Bradshaw MD [facility]
== END 2017-02-20 15:22 | disposition home or self-care (01) ==
LOC: ED 04:23 → 3N 09:45 → SUATTDRO 09:45
PROVIDERS: ATTEND Internal Medicine

== ENCOUNTER 2019-09-26 15:15 | Inpatient (IN) ==
[2019-09-26] MEDS ORDERED: LOPRESSOR 10 MG in NS 50 ML IV ONE (15:35)
[2019-09-26] MEDS ORDERED: TYLENOL PO ONE (15:47)
[2019-09-26] MEDS ORDERED: APRESOLINE IV ONE (15:47)
[2019-09-26 16:42] LABS: BASO# 0.01 X1000 (0.0-0.2); BASO% 0.1 % (0.0-0.8); EOS# 0.05 X1000 (0.0-0.7); EOS% 0.7 % (0.0-10.0); HEMATOCRIT 35.4 % (37.0-47.0); HEMOGLOBIN 10.9 g/dL (12.0-16.0); IMM GRAN# 0.02 X1000 (0.0-0.04); IMM GRAN% 0.3 % (0.0-0.5); LYMPH# 0.62 X1000 (1.2-3.4); LYMPH% 8.5 % (20.5-51.1); MCH 29.9 PG (27-31); MCHC 30.8 g/dL (33-37); MONO# 0.47 X1000 (0.11-0.59); MONO% 6.4 % (1.7-9.3); MPV 11.3 FL (7.4-10.4); NEUT# 6.12 X1000 (1.4-6.5); PLT 175 X1000 (130-400); RBC 3.65 XMIL (4.2-5.4); RDW 12.9 % (11.5-14.5); WBC 7.29 X1000 (4.8-10.8)
--- NOTE | 2019-09-26 16:47 | Diag Imaging Result Doc PS360 ---
EXAM: FOREARM-RIGHT 09/26/2019 HISTORY: fall with injury to right forearm/wrist TECHNIQUE: Right forearm two views COMMENT: There is an impacted fracture of the distal radius. There is a fracture of the distal ulnar metaphysis. IMPRESSION: Fractures of the distal radius and ulna. Electronically signed by Quinten Umaña 09/26/2019 4:44 PM
--- NOTE | 2019-09-26 16:48 | Diag Imaging Result Doc PS360 ---
EXAM: WRIST COMPLETE RIGHT 09/26/2019 HISTORY: fall with injury to right forearm/wrist TECHNIQUE: Right wrist three views COMMENT: There is an impacted fracture of the distal radius with dorsal angulation of the distal fragment. There is an apparent fracture of the distal ulna involving the styloid process. IMPRESSION: Fractures of distal radius and ulna. Electronically signed by Quinten Umaña 09/26/2019 4:45 PM
[2019-09-26 16:52] LABS: INR 2.34; PROTIME 26.2 Seconds (11.0-16.0)
[2019-09-26 16:53] LABS: PTT 33.7 Seconds (22.3-41.8)
[2019-09-26 17:05] LABS: AGAP 11; ALB/GLOB RATIO 2.2; ALBUMIN 4.2 g/dL (3.5-5.0); ALKALINE PHOSPHATASE 90 U/L (32-104); BUN 14 mg/dL (8-22); CHLORIDE 101 mmol/L (98-107); CK PROFILE 50 U/L (24-173); COSMO 285; CREATININE 0.8 mg/dL (0.5-0.9); ESTIMATED GFR > 60; GLUCOSE 129 mg/dL (70-104); GOT 16 U/L (10-30); GPT 10 U/L (10-36); POTASSIUM 4.1 mmol/L (3.5-5.1); SODIUM 142 mmol/L (136-145); TCO2 30 mmol/L (25-35); TOTAL BILIRUBIN 0.99 mg/dL (0.20-1.00); TOTAL PROTEIN 6.1 g/dL (6.3-8.3)
[2019-09-26] MEDS ORDERED: NS 1,000 ML ONE (17:27)
[2019-09-26] MEDS ORDERED: NS 1,000 ML IV ONE (17:30)
--- NOTE | 2019-09-26 18:24 | Diag Imaging Result Doc PS360 ---
EXAM: CT HEAD/C-SPINE W/O CONTRAST 09/26/2019 HISTORY: sycope and a fall TECHNIQUE: This exam was performed using automated exposure control, adjustment of mA or kV according to patient size, and/or use of iterative reconstruction technique. COMMENT: There is encephalomalacia posteriorly in the posterior parietal lobe on the left. This was also present on 12/29/2016. There is no evidence of mass effect or bleed. The calvarium is intact. The paranasal sinuses are clear. There is some hyperostosis of the calvarium. Cervical spine: There are no previous cervical spine examinations. There are calcifications in both vertebral arteries. There is no evidence of fracture, subluxation, or prevertebral soft tissue swelling. There is disc space narrowing at C4-5 and C5-6. The facets are aligned. There is some uncovertebral arthropathy with osteophytic encroachment on the intervertebral foramina at the C4-5 and C5-6 levels particularly on the right. There is a pneumothorax on the right. IMPRESSION: No evidence of acute intracranial or cervical spine disease. Right-sided pneumothorax. Electronically signed by Quinten Umaña 09/26/2019 6:22 PM
--- NOTE | 2019-09-26 18:33 | Diag Imaging Result Doc PS360 ---
EXAM: CT THORAX W/CONTRAST 09/26/2019 HISTORY: sycope/ fall with R thoracic pain when breathing TECHNIQUE: This exam was performed using automated exposure control, adjustment of mA or kV according to patient size, and/or use of iterative reconstruction technique. COMMENT: There is a 5-10% pneumothorax on the right. There is some apical fibrosis on the right. There is dependent atelectasis in the right lower lobe. There is some shift of the midline structures to the left. There is cardiomegaly with particularly enlarged atria. There is a small left pleural effusion. This was present at the time the previous study of 06/04/2017. The aorta is partially calcified. There are extensive coronary calcifications. There is no evidence of dissection of the aorta. No filling defects are present in the pulmonary arteries. The ascending aorta is slightly ectatic measuring 4.1 cm in diameter. There is no apparent acute bony abnormality. IMPRESSION: Right pneumothorax. This may be under tension despite its relatively small volume. The findings were discussed with Marie Kim MD at 09/26/2019 6:30 PM. Electronically signed by Quinten Umaña 09/26/2019 6:30 PM
[2019-09-26] MEDS ORDERED: ZOFRAN IV ONE (18:53)
[2019-09-26] MEDS ORDERED: ZOFRAN ONE (18:59)
[2019-09-26 20:11] LABS: URINE SOURCE CATH
[2019-09-26 20:13] LABS: BILIRUBIN URINE NEGATIVE (NEGATIVE); BLOOD URINE NEGATIVE (NEGATIVE); COLOR YELLOW; GLUCOSE URINE NEGATIVE (NEGATIVE); LEUKOCYTES URINE NEGATIVE (NEGATIVE); NITRITE URINE NEGATIVE (NEGATIVE); PH URINE 7.5; PROTEIN URINE TRACE mg/dL (NEGATIVE); SP GRAVITY URINE 1.034; TURBIDITY URINE HAZY (CLEAR); UROBILINOGEN URINE 2 mg/dL (NORMAL)
[2019-09-26 20:19] LABS: KETONE URINE 10 mg/dL (NEGATIVE)
[2019-09-26] MEDS ORDERED: MORPHINE IV ONE (20:27)
[2019-09-26 20:56] LABS: UR EPITHELIAL CELLS <10 /HPF (<10); URINE BACTERIA NEGATIVE /HPF; URINE RBC <10 /HPF (<10); URINE WBC <10 /HPF (<10)
[2019-09-26 20:59] LABS: URINE CASTS NONE SEEN; URINE CRYSTALS NONE SEEN; URINE YEAST NONE SEEN
--- NOTE | 2019-09-26 21:03 | Diag Imaging Result Doc PS360 ---
EXAM: PELVIS 09/26/2019 HISTORY: right hip pain TECHNIQUE: AP pelvis and right hip COMMENT: There is an impacted fracture of the right femoral neck. There is generalized osteopenia. Contrast is seen in the urinary tract from the CT of the chest performed at 1806. There is a fair amount of stool in the colon. IMPRESSION: Right femoral neck fracture. Electronically signed by Quinten Umaña 09/26/2019 9:00 PM
[2019-09-26] MEDS ORDERED: MORPHINE ONE (21:18)
--- NOTE | 2019-09-26 21:19 | HISTORY AND PHYSICAL ---
PRIMARY CARE PHYSICIAN: Wilma Chen MD REASON FOR ADMISSION: Passing out with subsequent right-sided chest pain. HISTORY OF PRESENT ILLNESS: Ms. Sandra Ferris is a 89-year-old woman with past medical history of atrial fibrillation, hypertension, hypothyroidism, esophageal skin and lung cancers. She has been admitted in the past for right humeral fracture following a fall and prior syncope. Today, the patient states that immediately after she stood up from a sitting position she blacked out, but states that she noticed when fell, she hit the ground. She says she did not notice if she hit her head, but she believes she was out for a few seconds. When she came to, she had a phone beside her and called her son who said he had a hard time getting her up because she was she was experiencing pain on her right on her right side, i.e. her wrist and her right hip. The patient denied any antecedent palpitations, chest pain, or shortness of breath. No change in her home medications. No antecedent history of vomiting, diarrhea or blood loss. She states that in addition to the aforementioned pain in her extremities, she developed some right upper chest pain. A CT of the thorax was done and it showed a 5% to 10%pneumothorax. The patient currently denies any cardiorespiratory symptoms as the pain has resolved since she has been put on oxygen. No antecedent leg swelling, PND, orthopnea. No GI or complaints. REVIEW OF SYSTEMS: Twelve system review was done positive findings per HPI. ALLERGIES: Sulfa drugs. HOME MEDICATIONS: Xarelto 20 mg daily, levothyroxine 50 mcg daily, metoprolol 50 mg b.i.d., lisinopril 20 mg daily. FAMILY HISTORY: Only notable for heart disease. No diabetes or cancer in first-degree relatives. SOCIAL HISTORY: Lives alone. Does not smoke, drink, or use drugs. SURGICAL HISTORY: She had a , pacemaker implantation, hysterectomy, left foot surgery, CEA, and stent placement in the left carotid artery. LABORATORY WORK: White count 7000, hemoglobin 10, hematocrit 35, platelets 175,000, 84% neutrophils. BUN is 14, creatinine 0.8, glucose 129. TSH 4.6. Troponin was 12. PT was 26, INR 2.3, PTT was 33. She is essentially blind. Forearm x-ray shows distal ulnar and radial fractures. CT head and C-spine was essentially normal. Pelvic x-ray was ordered by me and results are pending. PHYSICAL EXAMINATION: VITAL SIGNS: Blood pressure is currently 116/46, heart rate 77, respiratory rate is 20, temperature is 97.9 degrees, O2 saturation is 97% on 2 L. GENERAL: She is a thin, frail, elderly, white female who is not in acute distress. She is alert and oriented x3. Normal mood and affect. HEENT: Head is normocephalic, atraumatic. Eyes, PERRLA/ EOMI. She is anicteric. No pallor. ENT for exam is grossly normal. No cyanosis. NECK: Supple. No JVD or carotid bruit. No thyromegaly. CHEST: Slightly decreased entry in the right upper lung, otherwise no added sounds. CARDIOVASCULAR: First and second heart sounds heard. No gallops, rubs. Rhythm is rate irregular. ABDOMEN: Full, soft without tenderness. No organomegaly. Bowel sounds normal. RECTAL: Deferred at this time. EXTREMITIES: The patient has noticeable swelling and hyperflexion of the right wrist. There is noticeable bruising on the dorsum of the right wrist. It is tender to touch. No crepitus. The patient is able to move her fingers, however. Elsewhere, no swelling. No edema in the other extremities. Sukhdeep's test is negative for any pain. However, the patient is unable to flex the right hip no more than 30 degrees. No clubbing or peripheral cyanosis. Distal pulse volumes are irregular but full. NEUROLOGICAL: No gross focal deficits. SKIN: Intact. No breakdown in skin exam. See above. Otherwise unremarkable. ASSESSMENT: 1. Transient syncopal spell, etiology yet to be determined. Consider possibility of medications. Of note, her blood pressure when sitting was 154/65 and standing it dropped to 131/58. We will consider probably decreasing dose of lisinopril or stopping that. I would give patient IV fluids. Echocardiogram will also be ordered. No need for any further imaging elsewhere. The patient on telemetry monitoring. 2. Right pneumothorax, likely posttraumatic. Put patient on incentive spirometer, high-flow O2 for O2 reabsorption. No role for pneumothorax. No role for chest tube at this time. Dr. Washington was notified and will follow the patient. 3. Right distal, right radius and ulna fracture. We will consult Orthopedics to see in the morning. 4. Hypertension. Continue with metoprolol, but recommend decreasing dose of lisinopril in light of potential decline in the patient's blood pressure on standing. 5. Atrial fibrillation. Continue beta-blockers and anticoagulants. 6. Hypothyroidism. Continue home medications. cc: MD Wilma Whitaker MD
[2019-09-26] MEDS: TYLENOL PO SCH ×2 (22:38→23:57)
--- NOTE | 2019-09-26 23:15 | PROVIDER DOCUMENTATION ---
This chart was entered by Chrissie Foley Scribe, acting as scribe for Marie Kim MD. HPI-Syncope/Dizziness - General Chief Complaint: Syncope Stated Complaint: syncope Time Seen by Provider: 09/26/19 15:18 Source: patient Allergies/Adverse Reactions: Patient Allergies Allergy/AdvReac Type Severity Reaction Status Date / Time Sulfa (Sulfonamide AdvReac Unknown Verified 09/26/19 15:28 Antibiotics) Home Medications: Home Medication List Medication Instructions Recorded Confirmed Last Taken Type Levothyroxine [Synthroid] 50 microgm PO DAILY 12/21/15 09/26/19 12/21/15 08:00 History Metoprolol [Lopressor] 50 mg PO BID 12/21/15 09/26/19 12/21/15 21:00 History Lisinopril 20 mg PO DAILY 12/29/16 09/26/19 Unknown History Rivaroxaban [Xarelto] 20 mg PO DAILY@0600 #30 tablet 01/01/17 09/26/19 Unknown Rx - History of Present Illness-Syncope/Dizzy Nature of Presenting Problem: 84 y/o female with h/o cardiac arrhythmia presents to the ED via EMS after syncopal episode. The patient states she got up from the couch and was walking to the kitchen when she felt dizzy and then passed out for a few minutes. No eyewitness was present at the time of syncopal episode. No history of seizures. EMS states O2 sat in the 80s en route and the patient responded quickly to O2 nasal cannula. At the time of the exam the patient complains of right thoracic pain worsening with breathing and right distal forearm and wrist pain and swelling. Prior Episodes: reports: no prior history Onset/Duration: reports: just prior to arrival Timing: reports: resolved prior to arrival Position/Activity at time of episode: reports: standing Symptoms prior to episode: reports: other (dizzy) Context: reports: lost consciousness Loss of Consciousness: prolonged (minutes) Location of injury. (If syncope resulted in an injury.): reports: RUE Current Symptoms: reports: none/feels normal Recently Seen Here or By Another Healthcare Provider: No Review of Systems - Adult - REVIEW OF SYSTEMS - ADULT Constitutional: denies: chills, fever, weight loss Eyes: reports: no symptoms reported Ears, Nose, Mouth & Throat: reports: no symptoms reported Cardiovascular: reports: no symptoms reported Respiratory: reports: no symptoms reported Gastrointestinal: denies: diarrhea, nausea, vomiting Genitourinary: reports: no symptoms reported Musculoskeletal: reports: back pain (thoracic), joint pain (right distal forearm and right wrist pain and swelling), joint swelling (right wrist). denies: neck pain Integumentary: reports: no symptoms reported Neurological: reports: see HPI, dizziness/vertigo, syncope. 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 ) Other Conditions: reports: other cancer (skin ) - PRIOR SURGERIES/PROCEDURES Surgical/Procedure History: reports: pacemaker, hysterectomy, , orthopedic (extremity), other (lung sx) - IMMUNIZATION STATUS Childhood Immunizations: See Nurse Assessment Flu Vaccine: See Nurse Assessment - SOCIAL HISTORY Smoking: non-smoker Substance Use: none/never Alcohol Use Frequency: never Living Situation: alone Physical Exam-General - PHYSICAL EXAM-ADULT Initial Vital Signs Reviewed: Yes - CONSTITUTIONAL General Appearance: alert, no apparent distress - EYES Eyes: PERRL/EOMI - HEAD, EARS, NOSE, MOUTH & THROAT HENMT: normocephalic/atraumatic, moist mucous membranes - NECK Neck: non-tender, full range of motion, supple - RESPIRATORY Respiratory: lungs clear, normal breath sounds. negative: crackles, rales, rho nchi, wheezing, crepitus - CARDIOVASCULAR Cardiovascular: regular rate, rhythm, no edema, no gallop, no murmur - GASTROINTESTINAL (ABDOMEN) Abdominal Exam: non tender, soft. negative: guarding, rebound - MUSCULOSKELETAL Extremity: normal capillary refill, swelling (right distal forearm and wrist), tenderness (right distal forearm and right wrist). negative: deformity, pulse deficit - SKIN Integumentary: normal color, warm/dry - NEUROLOGIC Neurologic: grossly normal, other (moves all extremities) - PSYCHIATRIC Psych/Mental Status: oriented x 3 Progress - PLAN OF CARE/RESULTS Progress/Plan/Lab Results: Vital Signs - 8 hr 09/26/19 15:18 09/26/19 15:31 09/26/19 16:08 Temperature 97.9 F 98 F Pulse Rate 65 65 Pulse Rate [Sitting] 65 Pulse Rate [Standing] 64 Pulse Rate [Supine] 67 Respiratory Rate 18 19 Blood Pressure 188/73 187/84 Blood Pressure [Sitting] 154/65 Blood Pressure [Standing] 131/58 Blood Pressure [Supine] 172/82 O2 Sat by Pulse Oximetry 93 L 94 L 09/26/19 17:39 09/26/19 18:32 Temperature 97.9 F Pulse Rate 71 77 Pulse Rate [Sitting] Pulse Rate [Standing] Pulse Rate [Supine] Respiratory Rate 20 20 Blood Pressure 119/53 116/46 Blood Pressure [Sitting] Blood Pressure [Standing] Blood Pressure [Supine] O2 Sat by Pulse Oximetry 94 L 97 Laboratory Results - last 24 hr 09/26/19 09/26/19 09/26/19 16:25 16:25 16:25 WBC 7.29 RBC 3.65 L Hgb 10.9 L Hct 35.4 L MCV 97.0 MCH 29.9 MCHC 30.8 L RDW Std Deviation 12.9 Plt Count 175 MPV 11.3 H Immature Gran % (Auto) 0.3 Neut % (Auto) 84.0 H Lymph % (Auto) 8.5 L [place] % (Auto) 6.4 Eos % (Auto) 0.7 Baso % (Auto) 0.1 Immature Gran # (Auto) 0.02 Neut # (Auto) 6.12 Lymph # (Auto) 0.62 L [place] # (Auto) 0.47 Eos # (Auto) 0.05 Baso # (Auto) 0.01 PT 26.2 H INR 2.34 PTT (Actin FS) 33.7 Sodium 142 Potassium 4.1 Chloride 101 Carbon Dioxide 30 Anion Gap 11 BUN 14 Creatinine 0.8 Estimated GFR/1.73 m2 > 60 BUN/Creatinine Ratio 18 Glucose 129 H Calculated Osmolality 285 Calcium 9.0 Total Bilirubin 0.99 AST 16 ALT 10 Alkaline Phosphatase 90 Creatine Kinase 50 Troponin T High Sens Total Protein 6.1 L Albumin 4.2 Globulin 1.9 Albumin/Globulin Ratio 2.2 TSH Urine Source Urine Color Urine Turbidity Urine pH Ur Specific [place] Urine Protein Ur Glucose (Stick) Ur Ketones (Stick) Urine Blood Urine Nitrite Urine Bilirubin Urobilinogen Dipstick Urine Leukocytes 09/26/19 09/26/19 09/26/19 16:25 16:25 20:03 WBC RBC Hgb Hct MCV MCH MCHC RDW Std Deviation Plt Count MPV Immature Gran % (Auto) Neut % (Auto) Lymph % (Auto) [place] % (Auto) Eos % (Auto) Baso % (Auto) Immature Gran # (Auto) Neut # (Auto) Lymph # (Auto) [place] # (Auto) Eos # (Auto) Baso # (Auto) PT INR PTT (Actin FS) Sodium Potassium Chloride Carbon Dioxide Anion Gap BUN Creatinine Estimated GFR/1.73 m2 BUN/Creatinine Ratio Glucose Calculated Osmolality Calcium Total Bilirubin AST ALT Alkaline Phosphatase Creatine Kinase Troponin T High Sens 12 Total Protein Albumin Globulin Albumin/Globulin Ratio TSH 4.64 H Urine Source CATH Urine Color YELLOW Urine Turbidity HAZY Urine pH 7.5 Ur Specific [place] 1.034 Urine Protein TRACE A Ur Glucose (Stick) NEGATIVE Ur Ketones (Stick) 20 A Urine Blood NEGATIVE Urine Nitrite NEGATIVE Urine Bilirubin NEGATIVE Urobilinogen Dipstick 2 A Urine Leukocytes NEGATIVE Orders Category Date Time Status Cardiac Monitoring DIRECTED Care 09/26/19 15:35 Active Finger Stick Blood Sugar (ED) DIRECTED Care 09/26/19 15:35 Active Misc. NRSG Communication Order DIRECTED Care 09/26/19 15:35 Active Saline Loc NOW Care 09/26/19 15:[address] HEAD/C-SPINE W/O CONTRAST [CT] Stat Exams 09/26/19 15:[address] THORAX W/CONTRAST [CT] Stat Exams 09/26/19 15:40 Completed FOREARM-RIGHT [RAD] Stat Exams 09/26/19 15:48 Completed WRIST COMPLETE RIGHT [RAD] Stat Exams 09/26/19 15:48 Completed CBC WITH ELECTRONIC DIFF [HEME] Stat Lab 09/26/19 16:25 Completed CK PROFILE [SP CHEM] Stat Lab 09/26/19 16:25 Completed COMPREHENSIVE METABOLIC PANEL [CHEM] Stat Lab 09/26/19 16:25 Completed PROTIME WITH INR [COAG] Stat Lab 09/26/19 16:25 Completed PTT [COAG] Stat Lab 09/26/19 16:25 Completed TROPONIN T HIGH SENSITIVITY Stat Lab 09/26/19 16:25 Completed TSH Stat Lab 02/09/20 16:25 Completed URINALYSIS W/POSS RFLX CULT [URINALYSIS] Stat Lab 09/26/19 20:03 Results URINE MANUAL MICROSCOPIC [URINALYSIS] Stat Lab 09/26/19 20:03 Results 0.9% Sodium Chloride Inj [Ns] 1,000 ml Med 09/26/19 17:27 Discontinued .ROUTE As directed 0.9% Sodium Chloride Inj [Ns] 1,000 ml Med 09/26/19 17:30 Discontinued IV 999 mls/hr Acetaminophen [Tylenol] Med 09/26/19 15:47 Discontinued 500 mg PO NOW ONE Hydralazine [Apresoline] Med 09/26/19 15:47 Discontinued 20 mg IV NOW ONE Metoprolol [Lopressor] 10 mg Med 09/26/19 15:35 Discontinued 0.9% Sodium Chloride Inj [Ns] 50 ml IV NOW Ondansetron [Zofran] Med 09/26/19 18:59 Discontinued 4 mg .ROUTE .STK-MED ONE Ondansetron [Zofran] Med 09/26/19 18:53 Discontinued 4 mg IV NOW ONE EKG [EKG] Stat Ther 09/26/19 15:35 Ordered Result Diagrams: 09/26/19 16:25 09/26/19 16:25 - REASSESSMENT Reassessment #1 Time Reassessed: 19:30 Status: other (Patient seen at bed side. Comfortable, no distress. Discussed pos itive CT chest and also fracture R radius , ulnar. She is not in resporatory distress. No Distended JVD, No chest assymetry. No dyspnea. Equal chest expansion. NO echymosis. Air entry decreased on right. Discussed plans to admit her as agreed by Dr Washington. She does report pain to distal right forearm. Will give low dose morphine) - XRAY 1 XRAY Study: Forearm ( TECHNIQUE: Right wrist three views COMMENT: There is an impacted fracture of the distal radius with dorsal angulation of the distal fragment. There is an apparent fracture of the distal ulna involving the styloid process. IMPRESSION: Fractures of distal radius and ulna.), Wrist - CT/MRI 1 CT Study: Thorax ( EXAM: CT THORAX W/CONTRAST 09/26/2019 HISTORY: sycope/ fall with R thoracic pain when breathing TECHNIQUE: This exam was performed using automated exposure control, adjustment of mA or kV according to patient size, and/or use of iterative reconstruction technique. COMMENT: There is a 5-10% pneumothorax on the right. There is some apical fibrosis on the right. There is dependent atelectasis in the right lower lobe. There is some shift of the midline structures to the left. There is cardiomegaly with particularly enlarged atria. There is a small left pleural effusion. This was present at the time the previous study of 06/04/2017. The aorta is partially calcified. There are extensive coronary calcifications. There is no evidence of dissection of the aorta. No filling defects are present in the pulmonary arteries. The ascending aorta is slightly ectatic measuring 4.1 cm in diameter. There is no apparent acute bony abnormality. IMPRESSION: Right pneumothorax. This may be under tension despite its relatively small volume. The findings were discussed with Marie Kim MD at 09/26/2019 6:30 PM. Electronically signed by Quinten Umaña 09/26/2019 6:30 PM) MRI Study: Head (MPRESSION: No evidence of acute intracranial or cervical spine disease. Right-sided pneumothorax. Electronically signed by Quinten Umaña 09/26/2019 6:22 PM) - CONSULTS/PCP/HOSPITALIST Notification #1 *Consult/PCP/Hospitalist*: Dr Chaney Time Discussed: 19:35 Consult Disposition: Admit (discussed pneumothorax and right forearm fracture. He wants hospitalist to admit and he will follow up with patient. Hospitalist has been paged) #2 Consult: Hospitalist Dr Larissa Montoya Discussed: 20:15 Consult Disposition: Admit (Accepts admission. He wants pt on high flow 02 by respiratory therapist inview of pneumothorax) Departure - Departure Date of Disposition Decision: 09/26/19 Time of Disposition Decision: 20:17 DIAGNOSIS: Syncope Qualifiers: Syncope type: unspecified Qualified Code(s): R55 - Syncope and collapse Fracture of radius and ulna, distal Qualifiers: Encounter type: initial encounter Fracture type: closed Laterality: right Qualified Code(s): S52.501A - Unspecified fracture of the lower end of right radius, initial encounter for closed fracture; S52.601A - Unspecified fracture of lower end of right ulna, initial encounter for closed fracture Pneumothorax Qualifiers: Pneumothorax type: traumatic Encounter type: initial encounter Qualified Co de(s): S27.0XXA - Traumatic pneumothorax, initial encounter Disposition: ADMITTED INPATIENT 09 Certified Medical Emergency: Emergent Condition: Fair Referrals and Follow-Ups: None,PCP [Primary Care Provider] - - Critical Care Note This patient required my direct & personal management of CC.: No Attestation - Physician/ KHALIDA Attestation Patient care was provided by Advanced Practice Provider:: No The physician spent face to face time with patient:: Yes Advanced Practice Provider documentation review:: Supervising physician onsite and consulted in the evaluation and care of this patient. The physician did have a face to face encounter with the patient. This chart was documented by the indicated scribe, (Chrissie Foley, Scrchrise) and accurately reflects the services I performed and decisions made by me, Marie Kim MD, as attested by the provider's signature.
[2019-09-26] MEDS: LOPRESSOR PO SCH (23:39)
[2019-09-26] MEDS: PERICOLACE PO SCH (23:39)
[2019-09-26] MEDS: NS 1,000 ML IV SCH (23:40)
[2019-09-27 05:59] LABS: BASO# 0.01 X1000 (0.0-0.2); BASO% 0.1 % (0.0-0.8); EOS# 0.05 X1000 (0.0-0.7); EOS% 0.7 % (0.0-10.0); HEMATOCRIT 32.9 % (37.0-47.0); HEMOGLOBIN 9.8 g/dL (12.0-16.0); LYMPH# 0.75 X1000 (1.2-3.4); LYMPH% 9.8 % (20.5-51.1); MCH 30.1 PG (27-31); MCHC 29.8 g/dL (33-37); MCV 100.9 FL (81-99); MONO# 0.55 X1000 (0.11-0.59); MONO% 7.2 % (1.7-9.3); MPV 11.6 FL (7.4-10.4); NEUT# 6.29 X1000 (1.4-6.5); NEUT% 82.2 % (42.2-75.2); PLT 143 X1000 (130-400); RBC 3.26 XMIL (4.2-5.4); RDW 13.2 % (11.5-14.5); WBC 7.65 X1000 (4.8-10.8)
[2019-09-27] MEDS ORDERED: XARELTO PO SCH (06:00)
[2019-09-27 06:20] LABS: AGAP 12; BUN 14 mg/dL (8-22); CALCIUM 8.2 mg/dL (8.8-10.2); CHLORIDE 106 mmol/L (98-107); COSMO 282; CREATININE 0.7 mg/dL (0.5-0.9); ESTIMATED GFR > 60; GLUCOSE 99 mg/dL (70-104); MAGNESIUM 1.9 mg/dL (1.5-2.7); POTASSIUM 3.8 mmol/L (3.5-5.1); SODIUM 141 mmol/L (136-145); TCO2 23 mmol/L (25-35)
[2019-09-27] MEDS: TYLENOL PO SCH ×3 (06:38→20:57)
[2019-09-27] MEDS: NS 1,000 ML IV SCH (06:54)
--- NOTE | 2019-09-27 07:22 | EKG Report ---
Test Performed on : 09/27/2019 06:48:56 AM Test Reason : chest pain Blood Pressure : / mmHG Vent. Rate : 066 BPM Atrial Rate : 066 BPM P-R Int : 000 ms QRS Dur : 084 ms QT Int : 430 ms P-R-T Axes : 000 074 -73 degrees QTc Int : 450 ms Atrial fibrillation. with frequent ventricular-paced complexes Anteroseptal infarct , age undetermined ST & T wave abnormality, consider inferior ischemia Abnormal ECG When compared with ECG of 17-FEB-2017 05:48, Electronic ventricular pacemaker has replaced Atrial fibrillation. Vent. rate has decreased BY 70 BPM Confirmed by Arturo COREAS, Rosalinda John ([id number]) on 09/27/2019 4:15:13 PM
[2019-09-27] MEDS: SYNTHROID PO SCH (08:40)
--- NOTE | 2019-09-27 08:59 | Diag Imaging Result Doc PS360 ---
EXAM: CHEST-2 VIEWS INDICATION: R PTX TECHNIQUE: 2 views COMPARISON: 04/10/2017 FINDINGS: There is a small right apical pneumothorax that was also seen on the prior chest CT dated 09/26/2019. It occupies approximately 10% of the right hemithorax. There is stable blunting of the left costophrenic angle suggesting chronic pleural thickening. There is very vague right lower lobe airspace infiltrate that is best seen on the lateral view. There is stable cardiomegaly. IMPRESSION: 1.Small right apical pneumothorax as described. 2.Very vague right lower lobe airspace infiltrate. Electronically signed by Ino Mann 09/27/2019 8:56 AM
[2019-09-27] MEDS ORDERED: PRINIVIL PO SCH ×2 (09:00→21:00)
--- NOTE | 2019-09-27 10:40 | PROGRESS NOTE ---
DATE: 09/27/2019 SUBJECTIVE: Patient reports feeling fine. Denies any chest pain. Upon my examination, reports mild pain in the right lower extremity. That is controlled with medication that she is receiving here. OBJECTIVE: Vital Signs: Temperature 98.3 degrees, heart rate 62, respiratory 19, blood pressure 150/62, O2 saturation 98% on room air examination. General: This is an 84-year-old female, lying in bed in no acute distress. Cardiovascular exam: S1, S2 heard. No murmurs, gallops, or rubs. Regular rate and rhythm. Respiratory exam: Decreased breath sounds noted in the right upper lung. The patient is not using any accessory muscles or having work of breathing. Abdomen: Soft, nontender to palpation. Bowel sounds present. No organomegaly. Extremities: The patient has right wrist covered by a splinter. Bruising on the dorsum of the right wrist. Neurological exam: Patient is alert and oriented x3. Moves 4 extremities. LABORATORY DATA: Reviewed and hemoglobin is 9.8, normal BMP. ASSESSMENT AND PLAN: 1. Syncopal episode. That is one of the reasons why the patient was admitted. Apparently, she has been orthostatic. Patient has been started on IV fluids. We will continue to check orthostatic vital signs twice daily. Echocardiogram has been ordered. We will follow the results. 2. Small optical right pneumothorax. Patient is on oxygen supplementation, incentive spirometry, even though that it has been noted at admission that surgery is going to be consulted I think because of the size of this pneumothorax. I think we need to consult on General Surgery at this time. 3. Right distal, right radius and ulnar fracture. Orthopedics has been consulted. We will follow recommendations. 4. Hypertension. Blood pressure is under control. We will continue with the same management. 5. Atrial fibrillation. Patient is on metoprolol. Currently heart rate is well controlled. 6. Hypothyroidism. We will continue with home dose of Synthroid. 7. Disposition: We will continue to monitor this patient closely. Await results of echocardiogram and orthostatic vital signs. cc: Ney Samson MD
--- NOTE | 2019-09-27 13:54 | ECHO REPORT ---
ORDER DATE: 09/26/2019 INDICATIONS: Syncope. FINDINGS: 1. The right atrium is markedly enlarged at 6 cm. Linear echodensity consistent with device leads is noted in the right heart chambers. 2. Severe tricuspid regurgitation with RV systolic pressure of 89 suggesting severe pulmonary hypertension. Also, notably, the patient's coronary sinus is markedly dilated, possibly indicating again severe pulmonary hypertension. 3. Dilated right ventricle with likely normal RV systolic function. 4. Mild pulmonic insufficiency. 5. Severe left atrial enlargement with a dimension of 6.6 cm. 6. No mitral valve prolapse. Mild mitral regurgitation. No mitral stenosis. 7. Normal LV size, end-diastolic dimension of 4.1 cm. Suggestion of severe left ventricular hypertrophy with a posterior and interventricular septal wall thickness of 1.6 and 1.7 cm respectively. Normal LV systolic function. The estimated EF is 65 to 70 percent with normal wall motion. 8. Aortic valve is sclerotic but does not appear to be stenotic. There is mild to moderate aortic insufficiency. The valve is trileaflet. 9. Aorta appears normal in visualized segments. 10. There is a suggestion of a very small posterior pericardial effusion with no evidence of tamponade physiology. cc: MD Gume Mariano MD
[2019-09-27] MEDS: LOPRESSOR PO SCH ×2 (14:17→20:53)
[2019-09-27] MEDS: ZOFRAN IV PRN (14:32)
--- NOTE | 2019-09-27 14:55 | GENERAL SURGERY CONSULTATION ---
DATE: 09/27/2019 REASON FOR CONSULTATION: Right pneumothorax. SURGEON CONSULTED: Dr. Luis A Washington. HISTORY OF PRESENT ILLNESS: This is an 84-year-old female who lives alone and was on her couch yesterday afternoon after samaritan when she reports to have passed out, fallen and sustained several injuries. She called her son. She was brought to the emergency room. She was found to have distal right forearm fractures and a right pneumothorax. The patient actually does vaguely recall the fall. She has had multiple falls in the past. She denies any recent chest pain, shortness of breath, abdominal pain, nausea, vomiting, fever, chills, or other systemic complaints. Currently she denies chest pain or shortness of breath. PAST MEDICAL HISTORY: Abdominal aortic aneurysm, hypertension, history of lung cancer, history esophageal cancer, kidney stones, multiple falls, atrial fibrillation. PAST SURGICAL HISTORY: Left partial lobectomy at [facility], , pacemaker implantation, hysterectomy, left foot surgery, carotid endarterectomy and left carotid stent placement. ALLERGIES: Sulfa. SOCIAL HISTORY: Negative tobacco, alcohol or illicit drug use, but she has been exposed to secondhand smoke for many years from her 's smoking. She lives by herself. FAMILY HISTORY: Reviewed and noncontributory. HOME MEDICATIONS: Xarelto, levothyroxine, metoprolol, lisinopril. FAMILY HISTORY: Notable for coronary artery disease. REVIEW OF SYSTEMS: Ten systems reviewed and negative except as noted above. PHYSICAL EXAMINATION: Vital Signs: Temperature 98.3 degrees, pulse 62, respirations 19, blood pressure 150/62, O2 saturation 98%. General: Elderly frail-appearing female in no distress who looks her stated. HEENT: Normocephalic, atraumatic. Extraocular muscles intact. Pupils equal, round, reactive to light. Sclerae anicteric. Moist mucous membranes. Neck: Supple. No thyromegaly. Lymph: No cervical, supraclavicular or periumbilical lymph nodes appreciated. CV: Regular rate and rhythm. Respiratory: Bilateral breath sounds. No work of breathing. She has no tenderness over her chest wall or bruising. GI: Soft, nontender, nondistended. No organomegaly or mass. Extremities: Thin. Some chronic muscle atrophy is noted. She has a right wrist in a brace. Skin: Warm and dry. No rash. LABORATORY: CBC and complete metabolic profile reviewed and unremarkable. IMAGING: Head and C-spine CT showed no evidence of acute intracranial, cervical spine disease but there is a small right pneumothorax. Chest CT shows right pneumothorax of 5 to 10% volume. There is some slight shift of the midline structures to the left. Right forearm x-ray shows fractures of the distal radius and ulna. Hip x-ray shows right femoral neck fracture. Followup chest x-ray this morning shows small right apical pneumothorax of 10% and vague right lower lobe airspace infiltrate. ASSESSMENT/PLAN: 84-year-old female status post fall with several orthopedic injuries, also with a relatively small right-sided pneumothorax. It appears to be stable. We recommend continued observation with oxygen via nasal cannula and repeat x-rays over the next 48 hours. cc: Luis A Washington MD
[2019-09-27] MEDS: PERICOLACE PO SCH ×2 (15:50→21:01)
[2019-09-27] MEDS: OXY IR PO PRN (15:57)
[2019-09-27] MEDS ORDERED: NORVASC PO SCH (16:45)
[2019-09-27] MEDS ORDERED: KEFZOL 2 GM/D5W 2 GM/50 ML IVPB IV ONE (16:49)
[2019-09-27] MEDS: APRESOLINE IV PRN (17:33)
[2019-09-27] MEDS: PRINIVIL PO SCH (20:53)
--- NOTE | 2019-09-27 22:12 | ORTHOPAEDICS CONSULTATION ---
DATE: 09/27/2019 CHIEF COMPLAINT: Fall with right hip pain and right wrist pain. HISTORY OF PRESENT ILLNESS: This 84-year-old female who lives alone and reports that she was on her couch this afternoon and stood up and seemed to have a syncopal episode. She reported blacking out and then falling landing on her right side. She was taken to the emergency department where it was found that she had a right femoral neck fracture in her hip and also a right distal radius fracture. She also reported shortness of breath with some chest pain. Orthopedics was consulted to come see the patient. PAST MEDICAL HISTORY: Includes AAA, hypertension, history of lung cancer, esophageal cancer, kidney stones, multiple falls, atrial fibrillation. PAST SURGICAL HISTORY: Includes left partial lobectomy [facility], , pacemaker placement, hysterectomy, left foot surgery, carotid endarterectomy and left carotid stent placement. ALLERGIES: Include sulfa. SOCIAL HISTORY: Patient denies tobacco, alcohol, or drug use. HOME MEDICATIONS: Include Xarelto, levothyroxine, metoprolol, lisinopril. REVIEW OF SYSTEMS: A 14 point review of systems was performed, pertinent positives listed in HPI. PHYSICAL EXAMINATION: Vital Signs: Temperature 98.2 degrees, pulse rate 76, respiratory rate 16, blood pressure 196/73, oxygen saturation 95% on 2 L per nasal cannula. General: Patient is awake and alert and in no acute distress, sitting in hospital bed. HEENT: Head is atraumatic, normocephalic. Eyes equal, round, reactive. Neck: Supple. Chest: There is equal chest expansion rise and fall at this time. Cardiovascular: There is regular rate and rhythm. Extremities: Right upper extremity, there is tenderness and swelling with ecchymosis present to the right distal radius region. There is decreased range of motion about the wrist due to pain. There is good radial pulse. There is good sensation. There is 3/5 early morning babysitter strength. Right lower extremity. The right lower extremity is shortened and externally rotated. There is good pedal pulses. There is good sensation. There is tenderness along the right lateral hip and anterior hip. There is no bruising noted. There is good capillary refill in the toes. Her skin is warm and dry. LAB: White blood cells 7.65, red blood cells 3.26, hemoglobin 9.8, hematocrit 32.9, platelets 143,000. INR 2.34. Sodium 141, potassium 3.8, chloride 106, BUN 14, creatinine 0.7, calcium 8.2. Troponin was 24. TSH 4.64. Urinalysis showed trace protein with some ketones. X-RAYS: Hip films show right femoral neck fracture. Films of her right wrist show fractures of the right distal radius and ulna. Chest CT showed right pneumothorax. This was very small. CT of the head and neck shows no acute process of the cervical spine. There is some disk space narrowing at C4-C6. ASSESSMENT: Right distal radius and ulna fractures, right femoral neck fracture of the hip. PLAN: We plan to obtain a CT of the right hip at this time to confirm right femoral neck fracture and see if it is displaced. At this point, we will plan a CRPP of the right hip with screw fixation. We will also plan an ORIF of the right distal radius. We will plan the surgery for tomorrow. She will need to stop her Xarelto at this time. We will need some medical clearance to get this approved. She has been scheduled for tomorrow in surgery. Will check back on her later and see if she is cleared for surgery. Dictated by DEEP Vann for Ino Abdi MD cc: DEEP Vann MD
--- NOTE | 2019-09-27 22:17 | Diag Imaging Result Doc PS360 ---
CT PELVIS W/O CONTRAST - 09/27/2019 INDICATION: Right femoral neck fracture. COMPARISON: X-rays from 09/26/2019 FINDINGS: There is a significantly displaced subcapital right femoral neck fracture. No dislocation. The left hip is intact. There is significant constipation. There is pelvic free fluid. IMPRESSION: 1. Displaced right femoral neck fracture. 2. Constipation. 3. Moderate pelvic free fluid, indeterminate. This exam was performed using automated exposure control, adjustment of mA or kV according to patient size, and/or use of iterative reconstruction technique Electronically signed by Duane Mckinnon 09/27/2019 10:15 PM
[2019-09-28] MEDS: TYLENOL PO SCH ×4 (01:41→21:44)
--- NOTE | 2019-09-28 07:26 | Diag Imaging Result Doc PS360 ---
EXAM: CHEST-2 VIEWS HISTORY: right pneumothorax TECHNIQUE: Two views COMPARISON: 09/27/2009 FINDINGS: The lungs are hyperexpanded. There are small bilateral pleural effusions. The heart remains enlarged. Severe atherosclerosis. There is a left-sided pacemaker. Stable right apical pneumothorax. No consolidation. IMPRESSION: Stable chest Electronically signed by Marek Judd 09/28/2019 7:24 AM
[2019-09-28] MEDS: PRINIVIL PO SCH ×2 (08:42→21:45)
[2019-09-28] MEDS: LOPRESSOR PO SCH ×2 (08:42→21:45)
[2019-09-28] MEDS: NORVASC PO SCH ×2 (08:42→21:45)
[2019-09-28] MEDS: PERICOLACE PO SCH ×2 (08:43→21:44)
[2019-09-28] MEDS: SYNTHROID PO SCH (10:33)
--- NOTE | 2019-09-28 10:35 | PROGRESS NOTE ---
DATE: 09/28/2019 SUBJECTIVE: The patient reports feeling fine. Some chest pain when she breathes deeply, on the right side of the chest. Denies any other complaints. OBJECTIVE: Vital Signs: Temperature 98.8 degrees, heart rate 77, respiratory rate 14, blood pressure 177/66, O2 saturation 100% on 2 L nasal cannula. General: This is a 89-year-old, female, lying in bed in no acute distress. Cardiovascular: S1, S2 heard. No murmurs, gallops, or rubs. Regular rate and rhythm. Respiratory: Decreased breath sounds noted in the right upper lung. The patient is not using any accessory muscles or having work of breathing. Abdomen: Soft. Nontender to palpation. Bowel sounds present. No organomegaly. Extremities: The patient has her right wrist covered by a splint. There is bruising in the dorsum of the right wrist, and the right lower extremity is shortened and externally rotated. Neurological: The patient is alert and oriented x3. Moves all 4 extremities. LABORATORY DATA: Pending at the time of my dictation, but from yesterday, BMP and CBC were grossly normal. ASSESSMENT AND PLAN: 1. Syncopal episode. We have ordered also orthostatic vital signs, but they have not been checked yet. The patient is on intravenous fluids. Echocardiogram has been ordered, which basically showed 60% to 70% ejection fraction, very small posterior pericardial effusion with no evidence of tamponade, dilated right ventricle, and severe tricuspid regurgitation, and severe pulmonary hypertension. At this point, we are going to stop intravenous fluids. Will continue to monitor. 2. Small apical right pneumothorax. The x-ray from today is stable. No need for any emergent procedure, like chest tube. Will continue to monitor. 3. Right radius ulnar and hip fracture. Orthopedics has been consulted. Because this patient had received last doses of Xarelto yesterday at 6 a.m. approximately, I prefer to wait until tomorrow to have surgery. 4. Hypertension. Blood pressure is under control. Will continue with the same management. 5. Atrial fibrillation. The patient is on metoprolol. Heart rate is well controlled. She has been on Xarelto, but of course, that medication has been stopped. 6. Hypothyroidism. Will continue home dose of Synthroid. 7. Disposition. Will continue to monitor this patient closely. cc: Ney Samson MD
--- NOTE | 2019-09-28 21:00 | GENERAL SURGERY PROGRESS NOTE ---
DATE: 09/28/2019 SUBJECTIVE: The patient is doing okay. She does report some mild right-sided chest pain, but no worse than yesterday. No shortness of breath. OBJECTIVE: Vital Signs: She is afebrile. Vital signs are stable. General: She is awake, alert, oriented x3. No acute distress. CV: Regular rate and rhythm. Respiratory: Bilateral breath sounds. No increased work of breathing. IMAGING: Her chest x-ray this morning shows a stable chest with small right apical pneumothorax. ASSESSMENT/PLAN: An 84-year-old female status post fall with right pneumothorax. It is stable. We will continue to monitor, especially after planned orthopedic intervention tomorrow. cc: Luis A Washington MD
--- NOTE | 2019-09-28 21:13 | ORTHOPAEDICS PROGRESS NOTE ---
DATE: 09/28/2019 SUBJECTIVE DATA: Ms. Ferris reports she fell yesterday while standing up from the couch and had a syncopal episode. She states she blacked out and she forgot what happened afterwards. She also reports that she stood up and had immediate pain in her right wrist and hip. OBJECTIVE DATA: There is good sensation to right upper and right lower extremity. There is good radial pulse. There is ecchymosis and swelling with edema to the right distal radius region. There is 3/5 dope heater strength. The patient is in a removable brace wrist immobilizer. There is good capillary refill in the fingers. The right hip is slightly shortened and externally rotated. There is anterior and lateral joint line tenderness. There are good pedal pulses. There is good capillary refill in the toes. ASSESSMENT: 1. Right femoral neck fracture with displacement. 2. Right distal radius and ulnar fractures. PLAN: We plan to hopefully bring Ms. Ferris to the operating room tomorrow to perform a bipolar anterior hip replacement on the right, since we have seen her and CT scan results. Will also continue with ORIF right distal radius. We will check back on her tomorrow and see how she is doing. Dictated by DEEP Vann for Ino Abdi MD cc: DEEP Vann MD
[2019-09-28] MEDS: OXY IR PO PRN (21:48)
[2019-09-29 00:43] LABS: INR 1.35; PROTIME 16.9 Seconds (11.0-16.0)
[2019-09-29] MEDS: SYNTHROID PO SCH (07:57)
[2019-09-29] MEDS: LOPRESSOR PO SCH ×2 (08:28→21:00)
[2019-09-29 09:05] LABS: BASO# 0.02 X1000 (0.0-0.2); BASO% 0.3 % (0.0-0.8); EOS# 0.27 X1000 (0.0-0.7); EOS% 3.4 % (0.0-10.0); HEMATOCRIT 35.2 % (37.0-47.0); HEMOGLOBIN 10.6 g/dL (12.0-16.0); IMM GRAN# 0.02 X1000 (0.0-0.04); IMM GRAN% 0.3 % (0.0-0.5); LYMPH# 0.55 X1000 (1.2-3.4); LYMPH% 6.9 % (20.5-51.1); MCH 29.4 PG (27-31); MCHC 30.1 g/dL (33-37); MCV 97.8 FL (81-99); MONO# 0.48 X1000 (0.11-0.59); MPV 11.7 FL (7.4-10.4); NEUT# 6.61 X1000 (1.4-6.5); NEUT% 83.1 % (42.2-75.2); PLT 136 X1000 (130-400); WBC 7.95 X1000 (4.8-10.8)
[2019-09-29 09:13] LABS: INR 1.2; PROTIME 15.4 Seconds (11.0-16.0)
[2019-09-29 09:14] LABS: PTT 36.2 Seconds (22.3-41.8)
--- NOTE | 2019-09-29 10:05 | PROGRESS NOTE ---
DATE: 09/29/2019 SUBJECTIVE: Patient reports feeling okay. She is breathing fine. No pain. No other complaints. OBJECTIVE: Vital Signs: Temperature 98.2 degrees, heart rate 78, respiratory rate 16, blood pressure 174/71, O2 saturation 99% on 2 L nasal cannula. General: This is an 84-year-old female lying in bed, in no acute distress. Cardiovascular: S1, S2 heard. No murmurs, gallops, or rubs. Regular rate and rhythm. Respiratory Exam: Minimal decreased breath sounds noted in the right upper lung. Patient is not using any accessory muscles or having work of breathing. Abdomen: Soft, nontender to palpation. Bowel sounds present. No organomegaly. Extremities: The patient has the wrist covered but at this point, dressing in the dorsum of the right wrist and right lower extremity is shortened and externally rotated. Neurological: Patient alert and oriented x3. Moves 4 extremities. LABORATORY DATA: There are no labs from today yet. ASSESSMENT AND PLAN: 1. Syncopal episode. No more episodes of syncope since she has been admitted to the hospital. So far, her blood pressure has been pretty much elevated in the range of 180s and 190s so we have adjusted the doses of blood pressure medications. At this point, we will continue with current management. She is on amlodipine 5 mg p.o. b.i.d. Also, lisinopril 10 mg p.o. b.i.d. Metoprolol. We will continue with same management. Echocardiogram was grossly unremarkable with very small posterior pericardial effusion. At this point, we will continue to monitor this patient closely. 2. Small right apical pneumothorax. Stable. Surgery is following. 3. Right radius ulnar and hip fracture. They are planning to do surgery today. We agreed with the plan. 4. Hypertension. Blood pressure as we mentioned before is a little bit elevated. We have made some changes to her current medication. We will continue to monitor. 5. Atrial fibrillation. Heart rate is well controlled. Xarelto has been held in anticipation for surgery. We will restart once this patient is out of surgery. 6. Hypothyroidism. We will continue home doses of Synthroid. 7. Disposition. We will continue to monitor this patient closely. cc: Ney Samson MD
[2019-09-29] MEDS ORDERED: KETAMINE ONE (10:17)
[2019-09-29] MEDS ORDERED: SENSORCAINE 0.25%/EPI 1:200,000 ONE (10:19)
[2019-09-29] MEDS ORDERED: TORADOL ONE (10:19)
[2019-09-29] MEDS ORDERED: SODIUM CHLORIDE 0.9% ONE (10:19)
[2019-09-29] MEDS ORDERED: DURAMORPH ONE (10:19)
[2019-09-29] MEDS ORDERED: EXPAREL 1.3% ONE (10:20)
[2019-09-29] MEDS ORDERED: NEOSPORIN G.U. IRRIGANT ONE (10:20)
--- NOTE | 2019-09-29 10:51 | ORTHOPAEDICS PROGRESS NOTE ---
DATE: 09/29/2019 Ms. Ferris is seen for her right hip and right wrist fracture. Will plan on surgery today to undergo hemiarthroplasty of the hip, as well as ORIF of the right wrist. Risks and benefits have been discussed previously, and reviewed with the family today. She is medically clear at this point. Will recheck her CBC and coags prior to surgery. If there is any change in her medical condition, we will postpone. cc: Ino Abdi MD
[2019-09-29 13:02] LABS: URINE SOURCE CATH
[2019-09-29 13:12] LABS: BILIRUBIN URINE NEGATIVE (NEGATIVE); BLOOD URINE LARGE (NEGATIVE); COLOR ORANGE; GLUCOSE URINE NEGATIVE (NEGATIVE); KETONE URINE 40 mg/dL (NEGATIVE); LEUKOCYTES URINE LARGE (NEGATIVE); NITRITE URINE NEGATIVE (NEGATIVE); PH URINE 6.5; PROTEIN URINE 50 mg/dL (NEGATIVE); SP GRAVITY URINE 1.015; TURBIDITY URINE TURBID (CLEAR); UROBILINOGEN URINE 2 mg/dL (NORMAL)
[2019-09-29 13:13] LABS: UR EPITHELIAL CELLS <10 /HPF (<10); URINE BACTERIA 4+ /HPF; URINE RBC TNTC /HPF (<10); URINE WBC TNTC /HPF (<10)
[2019-09-29] MEDS ORDERED: SENSORCAINE-MPF 0.5%/EPI 1:200,000 ONE (13:27)
[2019-09-29] MEDS ORDERED: DIPRIVAN 1% ONE (13:32)
[2019-09-29] MEDS ORDERED: XYLOCAINE-MPF 2% ONE (13:32)
[2019-09-29] MEDS ORDERED: ZOFRAN IV PRN (14:38)
[2019-09-29] MEDS ORDERED: MORPHINE IV PRN (14:38)
[2019-09-29] MEDS ORDERED: OXY IR PO PRN (14:38)
[2019-09-29] MEDS ORDERED: MILK OF MAGNESIA PO PRN (14:38)
[2019-09-29] MEDS ORDERED: HALDOL IV PRN (14:45)
[2019-09-29] MEDS: NS 1,000 ML IV SCH (15:19)
[2019-09-29] MEDS: NORVASC PO SCH ×2 (17:07→21:00)
[2019-09-29] MEDS: PERICOLACE PO SCH ×2 (17:07→21:00)
[2019-09-29] MEDS: TYLENOL PO SCH ×2 (17:08→21:00)
[2019-09-29] MEDS: PRINIVIL PO SCH ×2 (17:08→21:00)
--- NOTE | 2019-09-29 18:50 | GENERAL SURGERY PROGRESS NOTE ---
DATE: 09/29/2019 SUBJECTIVE: The patient feels about the same with some right-sided pleuritic chest pain, not worse than yesterday. No increasing shortness of breath. OBJECTIVE: She is afebrile. Vital signs are stable.General: She is awake, alert, no acute distress. Respiratory: Clear bilateral breath sounds. No increased work of breathing. ASSESSMENT/PLAN: 84-year-old female status post fall with right-sided pneumothorax which has been stable since admission. Her symptoms are minimal. We are continuing observation. She will be undergoing repair of multiple fractures today. I have explained to the patient and the family that her pneumothorax could worsen, requiring an urgent chest tube placement. They understand and agree to proceed as needed. cc: Luis A Washington MD
[2019-09-29] MEDS: KEFZOL 1 GM/D5W 1 GM/50 ML IVPB IV SCH (18:57)
--- NOTE | 2019-09-29 20:48 | OPERATIVE NOTE ---
PROCEDURE DATE: 09/29/2019 PREOPERATIVE DIAGNOSIS: 1. Displaced right femoral neck fracture. 2. Displaced right distal radius fracture. POSTOPERATIVE DIAGNOSIS: 1. Displaced right femoral neck fracture. 2. Displaced right distal radius fracture. PROCEDURE: 1. Right hemiarthroplasty with bipolar hip implant, anterior approach of the hip. 2. Open reduction and internal fixation with volar locking plate, right wrist. SURGEON: Julisa Abdi MD. ROOF CEMENT AND PAINT MAKER: DEEP Vann. ANESTHESIA: General. COMPLICATION: None. PROCEDURE IN DETAIL: 84-year-old female presents for surgical fixation of her hip and wrist. Risks, benefits, and no guarantees were discussed and they are willing to proceed. She was taken to the operating room. Satisfactory anesthesia obtained. She was placed on the [place] table and the right hip prepped and draped in usual sterile fashion. A time-out was taken to confirm operative site, procedure, and patient. Afterward, an anterior approach to the right hip was undertaken with an incision starting 1 cm distal and lateral to the anterior-superior iliac spine. Dissection was carried down through the tensor fascia esme. Blunt dissection along the inner membrane was undertaken down to the anterior hip capsule. Cobra retractors were placed over the superior and inferior aspects of the femoral neck, and a capsulotomy incision made. Femoral neck osteotomy was made to freshen the fracture cut and provide for stable implant fixation. The femoral head was removed and sized and noted to be a 44 head size. Sequential broaching with a [employer] carotid broach system up to a size 7 stem was achieved. Calcar reamer was used to resect any prominent neck. This had good axial and rotational stability. A standard neck geometry with a 1.5 head taper revealed good jew of leg length as well as stability of the hip. The trial stem was removed and an Actis size 7 collared stem with a standard neck impacted in the proximal femur with secure fixation. The bipolar head was impacted onto this with a 1.5 neck length taper. The hip was reduced and the C-arm used to verify accurate hardware placement and reduction. The wound was irrigated and injected with Exparel for pain management. It was closed in layers with a V-Loc in the fascia and the muscle, 2-0 Vicryl in the subcutaneous tissue, and skin cheo on the skin. Sterile dressings were placed over this. This completed the hemiarthroplasty. These drapes were then removed from the patient and the patient transferred to a regular OR table with a hand table for preparation of the ORIF of the wrist. The right hand was prepped and draped in the usual sterile fashion. A time-out was taken to confirm operative site, procedure, and patient. Gentle longitudinal traction was placed over the wrist for provisional fixation and reduction. A volar approach through the FCR sheath was undertaken to the distal radius. The volar locking plate was secured using a [employer]ynthe[employer] narrow plate after achieving reduction openly with a reduction clamp. The C-arm was used to verify accurate reduction and plate placement. Four bicortical locking screws were placed in the plate shaft followed by 6 locking pins distally with appropriate length. The C-arm was used to verify accurate fracture reduction and hardware placement, and care taken to avoid the joint. Near anatomic reduction was achieved. The wound was irrigated and closed in layers with 2-0 Vicryl and cheo. A volar splint was applied. She was recovered from anesthesia and transferred to the recovery room in stable condition. No intraoperative complications were noted. Instrument count and sponge count were correct at the time of closure. cc: Ino Abdi MD
[2019-09-29] MEDS: COLACE PO SCH (21:00)
[2019-09-29] MEDS: PERIDEX MT SCH (21:00)
--- NOTE | 2019-09-29 22:36 | ORTHOPAEDICS PROGRESS NOTE ---
DATE: 09/29/2019 SUBJECTIVE: Ms. Ferris is seen status post hemiarthroplasty of the hip and ORIF of the wrist. She is resting comfortably at the present time. She appears to be in no acute distress. She also appears to be motor and sensory intact with good motion of the fingers and digits as well as the lower extremity on the right lower leg. Her bandages are clean and dry. Vital signs are stable. She is stable postop currently. We will plan on mobilizing her tomorrow. She can be transferred to rehab center Friday or Friday. cc: Ino Abdi MD
[2019-09-29] MEDS: ZOFRAN IV PRN (22:40)
[2019-09-29] MEDS: APRESOLINE IV PRN (22:40)
[2019-09-30] MEDS: KEFZOL 1 GM/D5W 1 GM/50 ML IVPB IV SCH ×2 (01:34→09:51)
[2019-09-30] MEDS: NS 1,000 ML IV SCH ×3 (01:38→16:08)
[2019-09-30] MEDS: TYLENOL PO SCH ×3 (05:50→22:03)
[2019-09-30] MEDS: SYNTHROID PO SCH ×2 (05:50→06:57)
[2019-09-30 07:36] LABS: AGAP 11; BUN 22 mg/dL (8-22); CALCIUM 7.8 mg/dL (8.8-10.2); CHLORIDE 102 mmol/L (98-107); COSMO 280; CREATININE 0.7 mg/dL (0.5-0.9); ESTIMATED GFR > 60; GLUCOSE 109 mg/dL (70-104); POTASSIUM 3.5 mmol/L (3.5-5.1); SODIUM 138 mmol/L (136-145); TCO2 25 mmol/L (25-35)
[2019-09-30] MEDS: PERICOLACE PO SCH ×2 (08:49→22:05)
[2019-09-30] MEDS: FERROUS SULFATE PO SCH (08:49)
[2019-09-30] MEDS: PERIDEX MT SCH ×2 (08:50→22:06)
[2019-09-30] MEDS: NORVASC PO SCH ×2 (08:51→22:05)
[2019-09-30] MEDS: PRINIVIL PO SCH ×2 (08:51→22:04)
[2019-09-30] MEDS: LOPRESSOR PO SCH ×2 (08:51→22:04)
[2019-09-30] MEDS ORDERED: XARELTO PO SCH (09:00)
[2019-09-30 09:06] LABS: HEMOGLOBIN 6.6 g/dL (12.0-16.0); MCH 31.1 PG (27-31); MCHC 31.4 g/dL (33-37); MCV 99.1 FL (81-99); MPV 11.4 FL (7.4-10.4); RBC 2.12 XMIL (4.2-5.4); RDW 12.9 % (11.5-14.5); WBC 11.95 X1000 (4.8-10.8)
--- NOTE | 2019-09-30 09:50 | PROGRESS NOTE ---
DATE: 09/30/2019 SUBJECTIVE: Patient reports feeling fine. Pain in the right hip is under control. She is breathing fine. No other complaints. OBJECTIVE: Vital Signs: Temperature 98.4 degrees, heart rate 90, respiratory rate 17, blood pressure 120/51, O2 saturation 97% on room air. General Examination: This is an 84-year-old, female lying in bed, in no acute distress. Cardiovascular Examination: S1 and S2 heard. No murmurs, gallops, or rubs. Regular rate and rhythm. Respiratory Examination: Decreased breath sounds noted in the right upper lung but the patient is not using any accessory muscles or having work of breathing. Abdomen: Soft, nontender to palpation. Bowel sounds present. No organomegaly. Extremities: The patient has wrist covered by a splint and right hip covered by a dressing. Neurological Examination: The patient is alert and oriented x3. Moves 4 extremities. Laboratory Data: Pending at the time of my dictation. ASSESSMENT AND PLAN: 1. Syncopal episode. No more episodes of syncope. We have made some changes to her current blood pressure medication. We will continue to monitor this patient closely. Echocardiogram was grossly unremarkable. 2. Small right apical pneumothorax. That condition appears to be stable. Dr. Washington from general surgery following this patient. 3. Right ulnar and radius, and right hip fracture, status post right hemiarthroplasty with bipolar hip implant, and open reduction and internal fixation with a volar locking plate in the right wrist. Clinically, this patient is not complaining of any pain. Orthopedics is following this patient. They say that if this patient's condition continues to improve, can be discharged Friday or Friday for rehab. 4. Hypertension. Blood pressure is in the range of 125 and 158. We will continue with current medical management. 5. Atrial fibrillation. Heart rate is well controlled. The patient had surgery yesterday so we plan to restart Xarelto. 6. Hypothyroidism. We will continue home doses of Synthroid. 7. Disposition. We will continue to monitor this patient closely. cc: Ney Samson MD
[2019-09-30] MEDS: OXY IR PO PRN (10:47)
--- NOTE | 2019-09-30 16:07 | ORTHOPAEDICS PROGRESS NOTE ---
DATE: 09/30/2019 SUBJECTIVE DATA: Ms. Ferris is seen on postoperative day 1 of her right bipolar hip replacement and right ORIF distal radius. She reports her pain level is 2/10 at this time. She states she is doing well right now. She denies nausea or vomiting. OBJECTIVE DATA: There is good sensation to the right lower extremity. Her bandages are clean and dry. There is good pedal pulses. The patient is able to flex her quadriceps muscles without difficulty. There is also good sensation to the right upper extremity in the distal fingers. There is good capillary refill. There is some notable swelling as well. There is ecchymosis along the distal hand. The patient is in a volar wrist splint with a sling. Vital signs are stable. ASSESSMENT: 1. Right femoral neck fracture with bipolar hip replacement. 2. Right distal radius and ulnar fractures with open reduction internal fixation of the right wrist. PLAN: We plan to keep an eye on Ms. Ferris while she is in the hospital. The plan is to get her ambulating with therapy today. She will likely be transferred to rehab sometime Friday or Friday. Dictated by DEEP Vann for Ino Abdi MD cc: DEEP Vann MD
[2019-09-30] MEDS: COLACE PO SCH (22:06)
--- NOTE | 2019-09-30 22:15 | GENERAL SURGERY PROGRESS NOTE ---
DATE: 09/30/2019 SUBJECTIVE: The patient is doing well today status post fracture repair. She denies chest pain or shortness of breath. OBJECTIVE: She is afebrile. Vital signs are stable.General: She is awake, alert, oriented x3. No distress. Respiratory: Bilateral equal breath sounds. No increased work of breathing. ASSESSMENT/PLAN: An 84-year-old female status post fall with multiple fractures status post repair, also with right-sided pneumothorax, which has been stable since admission. We will sign off and be available as needed for any new general surgery concerns. cc: Luis A Washington MD
[2019-10-01] MEDS: SYNTHROID PO SCH (06:40)
[2019-10-01] MEDS: TYLENOL PO SCH ×3 (06:40→22:07)
[2019-10-01 07:44] LABS: HEMATOCRIT 26.3 % (37.0-47.0); HEMOGLOBIN 8.4 g/dL (12.0-16.0); MCH 28.6 PG (27-31); MCHC 31.9 g/dL (33-37); MCV 89.5 FL (81-99); MPV 11.8 FL (7.4-10.4); RBC 2.94 XMIL (4.2-5.4); RDW 20.1 % (11.5-14.5); WBC 8.3 X1000 (4.8-10.8)
[2019-10-01 08:22] LABS: AGAP 12; BUN 27 mg/dL (8-22); CALCIUM 8.1 mg/dL (8.8-10.2); CHLORIDE 104 mmol/L (98-107); COSMO 283; CREATININE 0.7 mg/dL (0.5-0.9); ESTIMATED GFR > 60; GLUCOSE 99 mg/dL (70-104); POTASSIUM 3.7 mmol/L (3.5-5.1); SODIUM 139 mmol/L (136-145); TCO2 23 mmol/L (25-35)
[2019-10-01] MEDS: NS 1,000 ML IV SCH ×3 (08:39→20:48)
--- NOTE | 2019-10-01 08:49 | PROGRESS NOTE ---
DATE: 10/01/2019 SUBJECTIVE: Patient reports feeling fine. Pain is under control. No acute issues noted as per nursing staff overnight. No black stools or vomiting blood. OBJECTIVE: Vital Signs: Temperature 97.8 degrees, heart rate 74, respiratory 17, blood pressure 157/57, O2 saturation 100% on room air. General Examination: This is an 84-year-old female lying in bed, in no acute distress. Cardiovascular: S1, S2 heard. No murmurs, gallops, or rubs. Regular rate and rhythm. Respiratory: Clear bilaterally to auscultation. No work of breathing. Not using accessory muscles. Abdomen: Soft. Non tender. No organomegaly. Extremities: The patient has wrist covered but it is clean. Right hip covered by dressing. Neurological exam: Patient is alert and oriented x3. Moves 4 extremities. LABORATORY DATA: Pending at the time of dictation. ASSESSMENT AND PLAN: 1. Syncopal episode. There are no more episodes of syncope in the hospital. Echocardiogram was grossly unremarkable so I think this condition is resolved. 2. Small right apical pneumothorax. The condition is resolved. General Surgery was following this patient. They signed off. 3. Right ulnar and radius and right hip fracture status post right hemiarthroplasty with bipolar hip implant and open reduction and internal fixation with a volar locking plate in the right wrist. At this point patient is not complaining of any pain. Patient reports feeling okay. Orthopedics following this patient for recommendation. 4. Anemia of blood loss. Patient's hemoglobin has dropped to 6.6 so 2 units of blood has been ordered. The patient has been on blood thinners so she may bleed. At this point, what we are going to do is to keep this patient over the weekend. Keep checking to see if that is stable then we will discharge her home. 5. Hypertension. Blood pressure is under control. We will continue with the same management. 6. Atrial fibrillation. Heart rate is well controlled. Xarelto has not been started yet, probably will do it in a couple days. 7. Hypothyroidism. Will continue home doses of Synthroid. 8. Disposition. Continue to monitor this patient closely. cc: MD MARIANELA Bradshaw
[2019-10-01] MEDS: PERIDEX MT SCH ×2 (10:15→22:08)
[2019-10-01] MEDS: FERROUS SULFATE PO SCH (10:16)
[2019-10-01] MEDS: LOPRESSOR PO SCH ×2 (10:16→22:07)
[2019-10-01] MEDS: PRINIVIL PO SCH ×2 (10:16→22:07)
[2019-10-01] MEDS: PERICOLACE PO SCH ×2 (10:16→22:07)
[2019-10-01] MEDS: NORVASC PO SCH ×2 (10:16→22:07)
--- NOTE | 2019-10-01 16:41 | ORTHOPAEDICS PROGRESS NOTE ---
DATE: 10/01/2019 SUBJECTIVE DATA: Ms. Ferris is seen postop her right ORIF distal radius and her right bipolar hip replacement. She reports she is doing well at this time. She states her pain is well controlled. OBJECTIVE DATA: The patient is neurovascularly intact at this time. There is good sensation to the right upper and right lower extremity. The patient can flex her quadriceps muscles without difficulty. There is negative Homans sign. There is good pedal pulses. There is good capillary refill in the fingers and toes. The splint is intact to the right upper extremity. There is no active bleeding. ASSESSMENT: Right distal radius and ulna fractures with open reduction and internal fixation and right femoral neck fracture with bipolar hip replacement. PLAN: At this point, the patient can be transferred to a rehab facility of her choice. She will need to follow up with Dr. Abdi in roughly 2 to 3 weeks for a recheck and followup x-rays. At this time we will go ahead and sign off. Dictated by DEEP Vann for Ino Abdi MD cc: DEEP Vann MD
[2019-10-01] MEDS: COLACE PO SCH (22:07)
[2019-10-02] MEDS: NS 1,000 ML IV SCH ×2 (06:30→18:14)
[2019-10-02] MEDS: SYNTHROID PO SCH (06:41)
[2019-10-02] MEDS: TYLENOL PO SCH ×3 (06:41→22:18)
[2019-10-02 06:48] LABS: HEMATOCRIT 23.7 % (37.0-47.0); HEMOGLOBIN 7.5 g/dL (12.0-16.0); MCH 28.4 PG (27-31); MCHC 31.6 g/dL (33-37); MCV 89.8 FL (81-99); MPV 11.8 FL (7.4-10.4); RBC 2.64 XMIL (4.2-5.4); RDW 19.8 % (11.5-14.5); WBC 6.97 X1000 (4.8-10.8)
[2019-10-02 07:00] LABS: AGAP 8; BUN 22 mg/dL (8-22); CALCIUM 8.1 mg/dL (8.8-10.2); CHLORIDE 109 mmol/L (98-107); COSMO 292; CREATININE 0.4 mg/dL (0.5-0.9); ESTIMATED GFR > 60; GLUCOSE 99 mg/dL (70-104); POTASSIUM 3.8 mmol/L (3.5-5.1); SODIUM 145 mmol/L (136-145); TCO2 28 mmol/L (25-35)
[2019-10-02] MEDS ORDERED: NS 500 ML IV ONE (08:08)
--- NOTE | 2019-10-02 08:41 | PROGRESS NOTE ---
DATE: 10/02/2019 SUBJECTIVE: Patient reports feeling fine. No black stools or vomiting blood. Pain is under control. OBJECTIVE: Vital Signs: Temperature 98.2 degrees, heart rate 84, respiratory rate 20, blood pressure 169/64, O2 saturation 100% 2 L nasal cannula General examination: This is an 84-year- old female, lying in bed in no acute distress. Cardiovascular exam: S1, S2 heard. No murmurs, gallops, or rubs. Regular rate and rhythm. Respiratory exam: Clear bilaterally to auscultation. No work of breathing or using accessory muscles. Abdomen: Soft, nontender to palpation. Bowel sounds present. No organomegaly. Extremities: The patient has wrist covered with a splint, and also right heel covered by dressing. Neurological exam: Patient is alert and oriented x3. Moves 4 extremities. LABORATORY DATA: White cell count 6.97, hemoglobin 7.5, hematocrit 23.7, platelets 144 with normal creatinine. ASSESSMENT AND PLAN: 1. Syncopal episode, resolved. No more episodes of syncope since this patient is admitted to the hospital. 2. Small right apical pneumothorax, improved and resolved. 3. Right ulnar and radius and right hip fracture status post right hemiarthroplasty with bipolar hip implant on open reduction and internal fixation with a volar locking plate on the right wrist. Clinically, this patient is okay, and not complaining of any major pain. 4. Anemia of blood loss. Hemoglobin has dropped from 8.5 to 7.6 again today. I am going to transfuse 1 unit of blood, but I would like to check a CT of abdomen and pelvis to see if there is any reason that this patient is bleeding. We will continue to monitor. 5. Hypertension. Blood pressure is under control. We will continue with the same management. 6. Atrial fibrillation. Heart rate is well controlled. Xarelto, of course, has been held because of this anemia. 7. Hypothyroidism. Will continue home doses of Synthroid. 8. Disposition: We will continue to monitor this patient closely. cc: Ney Samson MD
[2019-10-02] MEDS: PERICOLACE PO SCH ×2 (09:55→22:18)
[2019-10-02] MEDS: LOPRESSOR PO SCH ×2 (09:56→22:17)
[2019-10-02] MEDS: PRINIVIL PO SCH ×2 (09:56→22:17)
[2019-10-02] MEDS: NORVASC PO SCH ×2 (09:56→22:18)
[2019-10-02] MEDS: PERIDEX MT SCH ×2 (09:56→22:18)
[2019-10-02] MEDS: FERROUS SULFATE PO SCH (09:56)
--- NOTE | 2019-10-02 21:38 | Diag Imaging Result Doc PS360 ---
EXAM: CT ABDOMEN/PELVIS W/WO CONTRAS HISTORY: anemia of blood loss TECHNIQUE: CT abdomen and pelvis with and without intravenous contrast. Oral contrast was not administered. COMPARISON: None. FINDINGS: Noncontrasted images: The heart is enlarged. There is a small right pleural effusion measuring 1.8 cm posteriorly and inferiorly in the midline. Trace left pleural fluid. There are infiltrates and air bronchograms in the right lower lobe. Severe atherosclerosis. No renal stones. No hydronephrosis. No inflammation about the gallbladder. Prominent stool throughout the colon. Post contrasted images: Normal liver, spleen, pancreas, and adrenal glands. There are several tiny renal cysts. The urinary bladder is distended. There is air within it. There is a small amount of fluid in the pelvis. Body wall edema. Anterior pelvic wall small hernia containing bowel loops, but no wall thickening. There has been orthopedic placement of the right hip. IMPRESSION: 1.Cardiomegaly with pleural effusions and right lower lobe infiltrates 2.Severe atherosclerosis 3.Constipation and possible fecal impaction 4.There is air within the urinary bladder This exam was performed using automated exposure control, adjustment of mA or kV according to patient size, and/or use of iterative reconstruction technique. Electronically signed by Marek Judd 10/02/2019 9:35 PM
[2019-10-02] MEDS: COLACE PO SCH (22:18)
[2019-10-03] MEDS: TYLENOL PO SCH ×3 (06:49→22:32)
[2019-10-03] MEDS: SYNTHROID PO SCH (06:49)
[2019-10-03 08:26] LABS: HEMATOCRIT 27.5 % (37.0-47.0); MCH 29.2 PG (27-31); MCHC 32.7 g/dL (33-37); MCV 89.3 FL (81-99); MPV 11.2 FL (7.4-10.4); RBC 3.08 XMIL (4.2-5.4); RDW 18.4 % (11.5-14.5); WBC 8.46 X1000 (4.8-10.8)
--- NOTE | 2019-10-03 09:40 | PROGRESS NOTE ---
DATE: 10/03/2019 SUBJECTIVE: The patient reports feeling okay. No complaints at this time. OBJECTIVE: Vital Signs: Temperature 98.6 degrees, heart rate 80, respiratory rate 16, blood pressure 157/70, O2 saturation 95% on 2 L nasal cannula. General: This is an 84-year-old, frail, female, lying in bed in no acute distress. Cardiovascular: S1, S2 heard. No murmurs, gallops, or rubs. Regular rate and rhythm. Respiratory: Clear bilaterally to auscultation. No work of breathing or using accessory muscles. Abdomen: Soft, nontender to palpation. Bowel sounds present. No organomegaly. Extremities: The patient has wrist covered with sling. Also, right hip covered by dressing. Neurological: The patient is alert and oriented x3. Moves all 4 extremities. LABORATORY DATA: Pending at the time of my dictation. ASSESSMENT AND PLAN: 1. Right ulnar and radius and right hip fracture, status post right hemiarthroplasty with bipolar hip implant and open reduction and internal fixation with volar locking plate on the right wrist. Clinically, this patient is okay. As per nursing staff, the patient started having bleeding from the right hip wound. We are awaiting Orthopedic evaluation for this patient. Her hemoglobin has dropped from the day before yesterday, but today this patient's hemoglobin is 9.0 after she got transfused 1 unit of blood yesterday at noon. At this point, will continue to monitor and following recommendations from Orthopedics. 2. Anemia of blood loss. Hemoglobin, as we mentioned before, is 9.0 after 1 unit of blood transfused yesterday. Will continue to monitor. 3. Hypertension. Blood pressure is under control. Will continue with the same management. 4. Small right apical pneumothorax, resolved. 5. Syncopal episode, resolved. 6. Atrial fibrillation. Heart rate is well controlled. Xarelto continues to be held because of anemia and bleeding. 7. Hypothyroidism. Will continue home doses of Synthroid. 8. Disposition. Will continue to monitor this patient closely. Awaiting evaluation from Orthopedics. cc: Ney Samson MD
[2019-10-03] MEDS: PRINIVIL PO SCH ×2 (10:05→22:32)
[2019-10-03] MEDS: LOPRESSOR PO SCH ×2 (10:05→22:31)
[2019-10-03] MEDS: PERICOLACE PO SCH ×2 (10:05→22:31)
[2019-10-03] MEDS: FERROUS SULFATE PO SCH (10:05)
[2019-10-03] MEDS: PERIDEX MT SCH ×2 (10:06→22:32)
[2019-10-03] MEDS: NORVASC PO SCH ×2 (10:06→22:31)
[2019-10-03] MEDS: LEVAQUIN PO SCH (10:11)
[2019-10-03] MEDS: NS 1,000 ML IV SCH (15:47)
[2019-10-03] MEDS: COLACE PO SCH (22:31)
[2019-10-04] MEDS: TYLENOL PO SCH ×2 (06:44→15:07)
[2019-10-04] MEDS: SYNTHROID PO SCH (06:45)
[2019-10-04 08:27] LABS: HEMATOCRIT 25.9 % (37.0-47.0); HEMOGLOBIN 8.1 g/dL (12.0-16.0); MCH 27.9 PG (27-31); MCHC 31.3 g/dL (33-37); MCV 89.3 FL (81-99); MPV 10.6 FL (7.4-10.4); RBC 2.9 XMIL (4.2-5.4); RDW 17.5 % (11.5-14.5); WBC 7.6 X1000 (4.8-10.8)
[2019-10-04 11:16] VITALS: BP 141/56
[2019-10-04] MEDS: LEVAQUIN PO SCH (11:17)
[2019-10-04] MEDS: PRINIVIL PO SCH (11:17)
[2019-10-04] MEDS: NORVASC PO SCH (11:17)
[2019-10-04] MEDS: PERICOLACE PO SCH (11:17)
[2019-10-04] MEDS: FERROUS SULFATE PO SCH (11:18)
[2019-10-04] MEDS: LOPRESSOR PO SCH (11:18)
--- NOTE | 2019-10-04 14:45 | DISCHARGE SUMMARY ---
ADMISSION DATE: 09/26/2019 DISCHARGE DATE: 10/04/2019 DISCHARGE DIAGNOSIS: 1. Right pneumothorax resolved. 2. Hypertension under control. 3. Right distal right radius normal fracture and right hip fracture surgically repaired. 4. Atrial fibrillation. 5. Chronic anticoagulation stopped. 6. Hypothyroidism. CONSULTATIONS: 1. Dr. Luis A Washington from General Surgery. 2. Dr. Abdi from Orthopedics . PROCEDURES: 1. Head and cervical spine CT showed no evidence of acute intracranial or cervical spine disease, right-sided pneumothorax. 2. Wrist x-ray showed fractures of distal radius and ulna. 3. Echocardiogram Doppler showed ejection fraction 65 to 70 percent suggesting with some very small posterior pericardial effusion with no evidence of tamponade physiology . 4. Pelvis CT showed displaced right femoral neck fracture. HOSPITAL COURSE: This is an 84-year-old female with past medical history of atrial fibrillation on anticoagulation, hypertension, hypothyroidism, esophageal, skin and lung cancer who has been admitted to the hospital for right humeral fracture following a fall on prior syncope. She was worked up for syncope with echocardiogram as resulted above. The CT of the head and neck was ordered for this syncope and trauma and reveal right pneumothorax secondary to trauma that has been followed by General Surgery with serial x-rays and apparently resolved on its own so they sign off. Orthopedics was consulted for those fractures that were basically repair, the procedure they have done where right hemiarthroplasty with bipolar hip implant anterior approach of the hip and open reduction and internal fixation with volar locking plate in the right wrist, that procedure was performed by Dr. Abdi. Patient was doing fine. Patient has been on Xarelto for atrial fibrillation. We decided to hold this medication. Actually this patient after she had surgery apparently she had bleeding where the hemoglobin drops and so far she needed to be transfused 3 units of blood. Results of hemoglobin from today are stable with no signs of overt bleeding. Urine culture reveal E coli ladd sensitive UTI so patient is going to receive antibiotics for a week for this condition. So far patient has been working with physical therapy. Is important to remark that on Friday and also today there was a small bleeding from the wound of right hip. Today the day of discharge we have reconsulted orthopedic but they mentioned that this patient is stable and they have already signed off from this case. We are going to see this patient in the office in 2 weeks. Patient is going to be discharged in stable condition. DISCHARGE PHYSICAL EXAMINATION: Vital Signs: Temperature 97.9 degrees, heart rate 82, respiratory 16, blood pressure 141/56, O2 saturation 100% 2 L nasal cannula. General: This is an 84-year-old female lying in bed in no acute distress. Cardiovascular: S1, S2 heard. No murmurs, gallops, or rubs. Regular rate and rhythm. Respiratory: Clear bilaterally to auscultation. No work of breathing or using accessory muscles. Abdomen: Soft, nontender to palpation. Bowel sounds present. No organomegaly. Extremities: No clubbing, cyanosis or edema. Peripheral pulses present in both legs. Splinter in the right wrist. DISCHARGE DISPOSITION: 1. Patient is going to rehab facility. 2. Follow up with Dr. Abdi in a couple weeks . MEDICATIONS: 1. Oxycodone IR 5 mg 1 tablet p.o. every 3 hours as needed for pain. 2. Milk of magnesia 30 mL p.o. daily p.r.n. constipation. 3. Levofloxacin 500 mg 1 tablet p.o. daily for 7 days. 4. Amlodipine 5 mg 1 tablet p.o. twice daily. 5. Lisinopril 20 mg 1 tablet p.o. daily. 6. Levothyroxine 50 mcg 1 tablet p.o. daily. TIME SPENT: 34 minutes. cc: Ney Samson MD MTDD
[2019-10-04] MEDS: PERIDEX MT SCH (15:06)
== END 2019-10-04 15:18 | DRG 956 ==
LOC: ED 15:15 → SUATTDRO 21:37 → EDIPHOLD 21:37 → 2N 09-27 13:54 → 4N 09-28 12:44
PROVIDERS: ATTEND Internal Medicine

== ENCOUNTER 2019-10-12 05:44 | Inpatient (IN) ==
[2019-10-12] MEDS ORDERED: NS 1,000 ML IV PRN (06:03)
--- NOTE | 2019-10-12 06:12 | PROVIDER DOCUMENTATION ---
HPI-Neurological Disorder - General Chief Complaint: Stroke-Like Symptoms Stated Complaint: stroke alert Time Seen by Provider: 10/12/19 06:00 Source: patient, [facility] records Allergies/Adverse Reactions: Patient Allergies Allergy/AdvReac Type Severity Reaction Status Date / Time Sulfa (Sulfonamide AdvReac Unknown Verified 09/26/19 15:28 Antibiotics) Home Medications: Home Medication List Medication Instructions Recorded Confirmed Last Taken Type Levothyroxine [Synthroid] 50 microgm PO DAILY 12/21/15 09/26/19 12/21/15 08:00 History Metoprolol [Lopressor] 50 mg PO BID 12/21/15 09/26/19 12/21/15 21:00 History Lisinopril 20 mg PO DAILY 12/29/16 09/26/19 Unknown History Amlodipine [Norvasc] 5 mg PO BID #60 tab 10/04/19 Unknown Rx Levofloxacin [Levaquin] 500 mg PO DAILY #7 tab 10/04/19 Unknown Rx Magnesium Hydroxide [Milk of 30 ml PO DAILY PRN PRN udc 10/04/19 Unknown Rx Magnesia] Oxycodone I.r. [Oxy Ir] 5 mg PO Q3H PRN PRN #30 tab 10/04/19 Unknown Rx - History of Present Illness-Neuro Nature of Presenting Problem: Patient is a 84 year old white female with recent injury to right arm who presents by EMS from [facility] with reported inability to raise right arm and decreased mentation- onset at 4am today. Since then, patient is now able to raise right arm. Patient is alert and responsive. NOtable old bruising noted over right forearm. Followed by orthopedist, Dr. Abdi, and Dr. Chen. Onset/Duration: reports: other (2 hours ago) Timing: reports: improving New weakness or altered sensation location:: reports: RUE Cognitive Baseline: alert but confused Review of Systems - Adult - REVIEW OF SYSTEMS - ADULT ROS:: limited per condition Constitutional: denies: chills, fever Eyes: reports: no symptoms reported Ears, Nose, Mouth & Throat: reports: no symptoms reported Cardiovascular: reports: no symptoms reported Gastrointestinal: reports: no symptoms reported Genitourinary: reports: no symptoms reported Musculoskeletal: reports: no symptoms reported Integumentary: reports: no symptoms reported Neurological: reports: see HPI Psychiatric: reports: see HPI Endocrine: reports: no symptoms reported Hematologic/Lymphatic: reports: no symptoms reported Allergic/Immunologic: reports: no symptoms reported All Other Systems: Reviewed and Negative Past History - Adult - PAST MEDICAL HISTORY-ADULT Review of Records: reports: Old Records Reviewed (Admission earlier this month for syncope/trauma), Nursing Assessment Review, Medications Reviewed, Social history reviewed & non-contributory. 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 ) Obstetrical/Gynecological: reports: denies history Genitourinary: reports: denies history Musculoskeletal: reports: denies history Neurological: reports: denies history Endocrine/Immune: reports: denies history Other Conditions: reports: other cancer (skin ) - PRIOR SURGERIES/PROCEDURES Surgical/Procedure History: reports: pacemaker, hysterectomy, , orthopedic (extremity), other (lung sx) - IMMUNIZATION STATUS Childhood Immunizations: See Nurse Assessment Flu Vaccine: See Nurse Assessment Physical Exam- Neurological - Physical Exam-Neuro General Appearance: alert, no apparent distress, other (demented, poor historian,generalized weakness) Eye Exam: bilateral eye: PERRL HENMT: normocephalic/atraumatic, moist mucous membranes Head Injury: no evidence of injury Neck: supple Respiratory: decreased breath sounds Cardiovascular: irregularly irregular Abdominal Exam: non tender Lymphatic: no adenopathy Extremity: other (old bruising over right forearm with some weakness) 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 Exam: other (nonfocal) Neurologic: other (nonfocal, uncooperative to exam) Integumentary: warm/dry Psych/Mental Status: other (demented) - Glascow Coma Scale Best Eye Response: (4) open spontaneously Best Verbal Response: (5) oriented Best Motor Response: (6) obeys commands Total Glascow Score: 15 Progress - PLAN OF CARE/RESULTS Progress/Plan/Lab Results: Vital Signs - 8 hr 10/12/19 05:56 10/12/19 07:24 Temperature 97.9 F 98.0 F Pulse Rate 82 98 H Respiratory Rate 17 17 Blood Pressure 175/66 184/56 O2 Sat by Pulse Oximetry 96 100 Laboratory Results - last 24 hr 10/12/19 10/12/19 10/12/19 06:00 06:00 06:00 WBC 9.62 RBC 3.34 L Hgb 9.5 L Hct 30.9 L MCV 92.5 MCH 28.4 MCHC 30.7 L RDW Std Deviation 18.1 H Plt Count 539 H MPV 9.8 Immature Gran % (Auto) 0.5 Neut % (Auto) 85.3 H Lymph % (Auto) 7.7 L Banks % (Auto) 6.0 Eos % (Auto) 0.4 Baso % (Auto) 0.1 Immature Gran # (Auto) 0.05 H Neut # (Auto) 8.20 H Lymph # (Auto) 0.74 L Banks # (Auto) 0.58 Eos # (Auto) 0.04 Baso # (Auto) 0.01 PT INR PTT (Actin FS) Sodium 139 Potassium 4.0 Chloride 95 L Carbon Dioxide 31 Anion Gap 13 BUN 21 Creatinine 0.6 Estimated GFR/1.73 m2 > 60 BUN/Creatinine Ratio 35 Glucose 110 H POC Glucose Calculated Osmolality 281 Calcium 9.8 Total Bilirubin 1.47 H AST 20 ALT 12 Alkaline Phosphatase 129 H Troponin T High Sens 21 H Total Protein 6.0 L Albumin 3.6 Globulin 2.4 Albumin/Globulin Ratio 1.5 Plasma Lactate Urine Source Urine Color Urine Turbidity Urine pH Ur Specific Lamar Urine Protein Ur Glucose (Stick) Ur Ketones (Stick) Urine Blood Urine Nitrite Urine Bilirubin Urobilinogen Dipstick Urine Leukocytes Urine WBC (Auto) Urine RBC (Auto) U Epithel Cells (Auto) Urine Bacteria (Auto) Urine Opiates Screen Ur Oxycodone Screen Ur Methadone, Qual Ur Barbiturates Screen Ur Phencyclidine Scrn Ur Amphetamines Screen U Benzodiazepines Scrn Urine Cocaine Screen U Cannabinoids Screen 10/12/19 10/12/19 10/12/19 06:00 06:31 07:09 WBC RBC Hgb Hct MCV MCH MCHC RDW Std Deviation Plt Count MPV Immature Gran % (Auto) Neut % (Auto) Lymph % (Auto) Banks % (Auto) Eos % (Auto) Baso % (Auto) Immature Gran # (Auto) Neut # (Auto) Lymph # (Auto) Banks # (Auto) Eos # (Auto) Baso # (Auto) PT 14.2 INR 1.08 PTT (Actin FS) 27.5 Sodium Potassium Chloride Carbon Dioxide Anion Gap BUN Creatinine Estimated GFR/1.73 m2 BUN/Creatinine Ratio Glucose POC Glucose 109 H Calculated Osmolality Calcium Total Bilirubin AST ALT Alkaline Phosphatase Troponin T High Sens Total Protein Albumin Globulin Albumin/Globulin Ratio Plasma Lactate 1.3 Urine Source Urine Color Urine Turbidity Urine pH Ur Specific Lamar Urine Protein Ur Glucose (Stick) Ur Ketones (Stick) Urine Blood Urine Nitrite Urine Bilirubin Urobilinogen Dipstick Urine Leukocytes Urine WBC (Auto) Urine RBC (Auto) U Epithel Cells (Auto) Urine Bacteria (Auto) Urine Opiates Screen Ur Oxycodone Screen Ur Methadone, Qual Ur Barbiturates Screen Ur Phencyclidine Scrn Ur Amphetamines Screen U Benzodiazepines Scrn Urine Cocaine Screen U Cannabinoids Screen 10/12/19 10/12/19 07:39 07:39 WBC RBC Hgb Hct MCV MCH MCHC RDW Std Deviation Plt Count MPV Immature Gran % (Auto) Neut % (Auto) Lymph % (Auto) Banks % (Auto) Eos % (Auto) Baso % (Auto) Immature Gran # (Auto) Neut # (Auto) Lymph # (Auto) Banks # (Auto) Eos # (Auto) Baso # (Auto) PT INR PTT (Actin FS) Sodium Potassium Chloride Carbon Dioxide Anion Gap BUN Creatinine Estimated GFR/1.73 m2 BUN/Creatinine Ratio Glucose POC Glucose Calculated Osmolality Calcium Total Bilirubin AST ALT Alkaline Phosphatase Troponin T High Sens Total Protein Albumin Globulin Albumin/Globulin Ratio Plasma Lactate Urine Source CATH Urine Color YELLOW Urine Turbidity HAZY Urine pH 7.0 Ur Specific Lamar 1.014 Urine Protein TRACE A Ur Glucose (Stick) NEGATIVE Ur Ketones (Stick) 10 A Urine Blood NEGATIVE Urine Nitrite NEGATIVE Urine Bilirubin NEGATIVE Urobilinogen Dipstick 2 A Urine Leukocytes NEGATIVE Urine WBC (Auto) <10 Urine RBC (Auto) <10 U Epithel Cells (Auto) <10 Urine Bacteria (Auto) NEGATIVE Urine Opiates Screen NONE DETECTED Ur Oxycodone Screen NONE DETECTED Ur Methadone, Qual NONE DETECTED Ur Barbiturates Screen NONE DETECTED Ur Phencyclidine Scrn NONE DETECTED Ur Amphetamines Screen NONE DETECTED U Benzodiazepines Scrn NONE DETECTED Urine Cocaine Screen NONE DETECTED U Cannabinoids Screen NONE DETECTED Orders Category Date Time Status Cardiac Monitoring DIRECTED Care 10/12/19 06:03 Active Finger Stick Blood Sugar (ED) DIRECTED Care 10/12/19 06:03 Active NEWS Score 2-4:Order NEWS Lactate Series NOW Care 10/12/19 06:47 Active Oxygen Therapy- ED Nursing DIRECTED Care 10/12/19 06:03 Active Saline Loc NOW Care 10/12/19 06:03 Active CHEST-PORTABLE [RAD] Stat Exams 10/12/19 06:[address] HEAD W/O CONTRAST [CT] Stat Exams 10/12/19 06:03 Completed CBC WITH ELECTRONIC DIFF [HEME] Stat Lab 10/12/19 06:00 Completed COMPREHENSIVE METABOLIC PANEL [CHEM] Stat Lab 10/12/19 06:00 Completed LACTATE, PLASMA [CHEM] Lab 10/12/19 10:00 Uncollected LACTATE, PLASMA [CHEM] Lab 10/12/19 13:00 Uncollected LACTATE, PLASMA [CHEM] Q3H Lab 10/12/19 06:31 Completed PRO B-NATRIURETIC PEPTIDE Stat Lab 10/12/19 06:00 Received PROTIME WITH INR [COAG] Stat Lab 10/12/19 06:00 Completed PTT [COAG] Stat Lab 10/12/19 06:00 Completed TROPONIN T HIGH SENSITIVITY Stat Lab 10/12/19 06:00 Completed URINALYSIS W/POSS RFLX CULT [URINALYSIS] Stat Lab 10/12/19 07:39 Completed URINE DRUG SCREEN Stat Lab 10/12/19 07:39 Completed 0.9% Sodium Chloride Inj [Ns] 1,000 ml Med 10/12/19 06:03 Active IV 50 mls/hr EKG [EKG] Stat Ther 10/12/19 06:03 Draft Result Diagrams: 10/12/19 06:00 10/12/19 06:00 - REASSESSMENT Reassessment #1 Time Reassessed: 09:15 Status: unchanged (Seen and examined by me. Case discussed with Dr. Patel at shift change. Patient has AMS (lethargy and weakenss to right arm on waking this morning), but has likely improved somewhat. Review of previous records, patient had been admitted earlier this month for syncope and radius and hip fractures with PTX, and they stopped her anticoagulation d/t the fall. Likely has had small CVA. Will ask hospitalist to admit and re-consider anticoagulation.) - EKG 1 Time of EKG reading by physician:: 06:37 EKG Read and Signed by:: Juan Manuel Patel Rate: 82 Rhythm: atrial fibrillation QRS: LVH, PVC's ST Wave: non-specific ST changes - XRAY 1 XRAY Study: Chest Impression: Abnormal, See EMR Report ( EXAM: CHEST-PORTABLE HISTORY: stroke l kat symptoms TECHNIQUE: Single view COMPARISON: 09/28/2019 FINDINGS: The lungs are hyperexpanded. The heart is not enlarged. The pulmonary vessels are small. Small left pleural effusion similar to the prior exam. Prominent atherosclerosis. There is a left-sided pacemaker. IMPRESSION: Emphysema with cardiomegaly Electronically signed by Marek Judd 10/12/2019 6:18 AM 10/12/19617 Interpreting Physician: Marek Judd MD Dictated Date/Time: 10/12/19616 cc: Juan Manuel Patel MD;) - CT/MRI 1 CT Study: Head Impression: See EMR Report CT Results: NAD - CONSULTS/PCP/HOSPITALIST Notification #1 *Consult/PCP/Hospitalist*: Hospitalist DEEP paged at 0920 Time Discussed: 09:34 (Roseann) Consult Disposition: Will see in ED, Admit - CHANGE OF SHIFT REPORT (ED Provider) 1 Report Given and Care Transferred to:: Dr. Aguilar Time of Transfer: 07:00 Items Pending: Labs Departure - Departure Date of Disposition Decision: 10/12/19 Time of Disposition Decision: 09:21 DIAGNOSIS: Cerebrovascular accident (CVA) with right hemiparesis Disposition: ADMITTED INPATIENT 09 Certified Medical Emergency: Emergent Condition: Fair Referrals and Follow-Ups: Wilma Chen MD [Primary Care Provider] - - Critical Care Note This patient required my direct & personal management of CC.: No Attestation - Physician/ KHALIDA Attestation Patient care was provided by Advanced Practice Provider:: No The physician spent face to face time with patient:: Yes Advanced Practice Provider documentation review:: Supervising physician onsite and consulted in the evaluation and care of this patient. The physician did have a face to face encounter with the patient. - NIH Stroke Scale NIH Type: Initial Evaluation Level of Consciousness: 1-Drowsy, but arousable with minimal stimulation LOC Questions (ask month and age): 0-Answers Both Correctly LOC Commands (ask to open & close eyes;make a fist, let go): 0-Obeys Both Correctly Best Gaze (horizontal eye movement): 0-Normal Visual (use finger movement, counting or visual threat): 0-No Visual Loss Facial Palsy (show teeth or raise eyebrows & close eyes tght: 0-Symmetrical Movement Motor Function-left arm: 0-Normal Motor Function-right arm: 1-Drift Motor Function-left le-Normal Motor Function-right le-Drift Limb Ataxia([id number]-[id number], or heel to balbuena): 0-No Ataxia Sensory(pin prick to face,arms,trunk,legs-compare side/side): 1-Mild to Moderate Decrease in Sensation Best Language(name item/read sentence.Ex-Down to Earth): 0-No Aphasia Dysarthria(Pt read words or say words Ex.Mama,Tip-Top,Thanks: 0-Normal Articulation Extinction and Inattention: 0-Normal NIH Total Score: 4 Stroke tPA Guidelines - Inclusion Criteria for IV tPA 18 years old or older: Yes Ischemic stroke with measurable deficit: Yes Onset <3 hours ago *OR* 3-4.5 hours ago: No - Exclusion Criteria for IV tPA Active internal bleeding or acute trauma: No Use IIB/IIIA inhibitors within 24 hours: No - Additional Exclusion Criteria for IV tPA Currently on Coumadin: No Patient older than 80: Yes Prior stroke and diabetes: No Baseline NIHSS score > 25: No - Relative Contraindications to IV tPA Major Surgery or Serious Trauma In Previous 14 Days: Yes - Consultation Candidate for:: NOT A CANDIDATE (Wake up stroke, showed some mild improvement in ED, recent trauma with syncope/fall, pneumothorax, hip and radius fractures a few weeks ago.)
--- NOTE | 2019-10-12 06:21 | Diag Imaging Result Doc PS360 ---
EXAM: CHEST-PORTABLE HISTORY: stroke like symptoms TECHNIQUE: Single view COMPARISON: 09/28/2019 FINDINGS: The lungs are hyperexpanded. The heart is not enlarged. The pulmonary vessels are small. Small left pleural effusion similar to the prior exam. Prominent atherosclerosis. There is a left-sided pacemaker. IMPRESSION: Emphysema with cardiomegaly Electronically signed by Marek Judd 10/12/2019 6:18 AM
--- NOTE | 2019-10-12 06:24 | Diag Imaging Result Doc PS360 ---
CT HEAD W/O CONTRAST - 10/12/2019 INDICATION: stroke like symptoms COMPARISON: 09/26/2019 FINDINGS: Stable old strokes in the left frontal and parietal lobes. Stable mild to moderate periventricular white matter chronic microvascular ischemia. No intracranial mass or hemorrhage. The skull is intact. The sinuses, mastoids, and middle ears are clear. IMPRESSION: No acute disease or change from prior. This exam was performed using automated exposure control, adjustment of mA or kV according to patient size, and/or use of iterative reconstruction technique Electronically signed by Duane Mckinnon 10/12/2019 6:21 AM
[2019-10-12 06:36] LABS: INR 1.08; PROTIME 14.2 Seconds (11.0-16.0)
[2019-10-12 06:37] LABS: PTT 27.5 Seconds (22.3-41.8)
[2019-10-12 07:00] LABS: BASO# 0.01 X1000 (0.0-0.2); BASO% 0.1 % (0.0-0.8); EOS# 0.04 X1000 (0.0-0.7); EOS% 0.4 % (0.0-10.0); HEMATOCRIT 30.9 % (37.0-47.0); HEMOGLOBIN 9.5 g/dL (12.0-16.0); IMM GRAN# 0.05 X1000 (0.0-0.04); IMM GRAN% 0.5 % (0.0-0.5); LYMPH# 0.74 X1000 (1.2-3.4); LYMPH% 7.7 % (20.5-51.1); MCH 28.4 PG (27-31); MCHC 30.7 g/dL (33-37); MCV 92.5 FL (81-99); MONO# 0.58 X1000 (0.11-0.59); MPV 9.8 FL (7.4-10.4); NEUT% 85.3 % (42.2-75.2); PLT 539 X1000 (130-400); RBC 3.34 XMIL (4.2-5.4); RDW 18.1 % (11.5-14.5); WBC 9.62 X1000 (4.8-10.8)
[2019-10-12 07:07] LABS: AGAP 13; ALB/GLOB RATIO 1.5; ALBUMIN 3.6 g/dL (3.5-5.0); ALKALINE PHOSPHATASE 129 U/L (32-104); BUN 21 mg/dL (8-22); CALCIUM 9.8 mg/dL (8.8-10.2); CHLORIDE 95 mmol/L (98-107); COSMO 281; CREATININE 0.6 mg/dL (0.5-0.9); ESTIMATED GFR > 60; GLUCOSE 110 mg/dL (70-104); GOT 20 U/L (10-30); GPT 12 U/L (10-36); SODIUM 139 mmol/L (136-145); TCO2 31 mmol/L (25-35); TOTAL BILIRUBIN 1.47 mg/dL (0.20-1.00)
--- NOTE | 2019-10-12 07:33 | EKG Report ---
Test Performed on : 10/12/2019 06:36:56 AM Test Reason : Stroke like symptoms Blood Pressure : / mmHG Vent. Rate : 082 BPM Atrial Rate : 066 BPM P-R Int : 000 ms QRS Dur : 088 ms QT Int : 378 ms P-R-T Axes : 000 053 -56 degrees QTc Int : 441 ms Atrial fibrillation. with occasional ventricular-paced complexes Voltage criteria for left ventricular hypertrophy Anteroseptal infarct , age undetermined ST & T wave abnormality, consider inferolateral ischemia Abnormal ECG When compared with ECG of 27-SEP-2019 06:48, Vent. rate has increased BY 16 BPM Unconfirmed Result
[2019-10-12 07:46] LABS: URINE SOURCE CATH
[2019-10-12 07:59] LABS: BILIRUBIN URINE NEGATIVE (NEGATIVE); BLOOD URINE NEGATIVE (NEGATIVE); COLOR YELLOW; GLUCOSE URINE NEGATIVE (NEGATIVE); KETONE URINE 10 mg/dL (NEGATIVE); LEUKOCYTES URINE NEGATIVE (NEGATIVE); NITRITE URINE NEGATIVE (NEGATIVE); PROTEIN URINE TRACE mg/dL (NEGATIVE); SP GRAVITY URINE 1.014; TURBIDITY URINE HAZY (CLEAR); UR EPITHELIAL CELLS <10 /HPF (<10); URINE BACTERIA NEGATIVE /HPF; URINE RBC <10 /HPF (<10); URINE WBC <10 /HPF (<10); UROBILINOGEN URINE 2 mg/dL (NORMAL)
[2019-10-12 08:02] LABS: UR AMPHETAMINES QUAL NONE DETECTED (NONE DETECT); UR BARBITUATES QUAL NONE DETECTED (NONE DETECT); UR BENZODIAZEPIN QUAL NONE DETECTED (NONE DETECT); UR CANNABINOIDS QUAL NONE DETECTED (NONE DETECT); UR COCAINE QUAL NONE DETECTED (NONE DETECT); UR METHADONE QUAL NONE DETECTED (NONE DETECT); UR OPIATES QUAL NONE DETECTED (NONE DETECT); UR OXYCODONE QUAL NONE DETECTED (NONE DETECT); UR PCP QUAL NONE DETECTED (NONE DETECT)
[2019-10-12] MEDS ORDERED: ZOFRAN IV PRN (09:50)
[2019-10-12] MEDS ORDERED: TYLENOL PO PRN (09:50)
[2019-10-12] MEDS: LOVENOX SUBQ SCH (10:31)
[2019-10-12] MEDS: NS 1,000 ML IV SCH (10:32)
[2019-10-12] MEDS ORDERED: PROTONIX IV ONE (10:49)
[2019-10-12] MEDS ORDERED: SODIUM CHLORIDE 0.9% INJ ONE (10:49)
--- NOTE | 2019-10-12 11:38 | Diag Imaging Result Doc PS360 ---
CT HEAD W/CONTRAST - 10/12/2019 10:05 AM INDICATION: ?new cva TECHNIQUE: COMPARISON: 6:12 AM FINDINGS: There is no acute disease or change from prior. There is no abnormal contrast enhancement. IMPRESSION: No acute disease or change from prior. This exam was performed using automated exposure control, adjustment of mA or kV according to patient size, and/or use of iterative reconstruction technique Electronically signed by Duane Mckinnon 10/12/2019 11:35 AM
--- NOTE | 2019-10-12 13:43 | HISTORY AND PHYSICAL ---
PRIMARY CARE PROVIDER: Wilma Chen MD CHIEF COMPLAINT: Syncopal spells with slurred speech and right-sided weakness. HISTORY OF PRESENT ILLNESS: Ms. Sandra Ferris is an 84-year-old female with a medical history of chronic atrial fibrillation, permanent pacemaker, who was most recently admitted this month after she had a fall, had fractured her right hip, along with her right wrist and had a pneumothorax from rib fractures. She was sent to [facility]. I believe she was on Xarelto prior to this happening, and it does not appear that she was resumed on Xarelto. Apparently, there is a report that around 3:50 this morning staff had found that she was unconscious for around 10 minutes and that she was coming in and out and they called an ambulance. They notified family around 5 a.m. Currently, she is alert. She is oriented to name. She is able to follow all commands. Strength as far shoulders is equal in the upper shoulders. 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 They never really noticed that she has ever been weak on the right side, but given the recent fall, towards the right and injuring herself on the right, most likely she has had some weakness there so it is really unclear if this is new or old as far as the right-sided weakness goes. What has remained is that she does have slurred speech. This is new and the question of why she had syncope. She is in chronic atrial fibrillation. The rate is controlled. Her blood pressure is stable, so we will admit and continue to work her up. PAST MEDICAL HISTORY: 1. 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 2. Esophageal cancer. 3. Skin cancer. 4. Lung cancer. 5. Atrial fibrillation that is chronic. 6. Hypertension. 7. Hypothyroidism. 8. Recent fall with fracture to the right wrist, right hip and pneumo on the right. SURGICAL HISTORY: 1. Right hemiarthroplasty with bipolar hip implant anterior approach. 2. Open reduction and internal fixation with volar locking plate of the right wrist. 3. section. 4. Permanent pacemaker. 5. Hysterectomy. 6. Left foot surgery. 7. Recent stent placement of the left carotid artery. I believe that was back in 2017. SOCIAL HISTORY: Denies tobacco, alcohol or illicit drug use. She is currently at [facility]. FAMILY HISTORY: Positive for coronary artery disease. ALLERGIES: Sulfa. HOME MEDICATIONS: Not fully reconciled, but what we have here is: 1. Lisinopril 20 mg p.o. daily. 2. Metoprolol 50 mg p.o. twice daily. 3. Mucinex 600 mg p.o. twice daily. 4. Synthroid 50 mcg p.o. daily. 5. Vitamin C 500 mg p.o. daily. 6. Zinc 220 mg p.o. twice daily. 7. Oxycodone 5 mg p.o. every 3 hours p.r.n. 8. Milk of magnesia 30 mL p.o. daily p.r.n. REVIEW OF SYSTEMS: Fourteen point review of systems are complete and all were negative except for those mentioned above in the HPI. She denies pain. PHYSICAL EXAMINATION: VITAL SIGNS: Temperature 98 degrees, heart rate 98, respiratory rate 17, blood pressure 184/56, O2 saturation 100% on 2 L nasal cannula. GENERAL: Ms. Sandra Ferris is an 84-year-old female. She is in no acute distress. She is able to answer some questions appropriately. HEENT: Atraumatic, normocephalic. Pupils equal, round, reactive to light. Extraocular movements intact. Mucous membranes are dry. NECK: Trachea midline. CARDIOVASCULAR: Irregularly irregular rate and rhythm. No rubs, gallops, murmurs. She does have a little bit of edema in the right lower extremity, where she has had hip replacement. PULMONARY: Coarse throughout. She is coughing up yellow phlegm. No accessory muscle use or work of breathing noted. GASTROINTESTINAL: Soft, nontender, nondistended. Positive bowel sounds x4. EXTREMITIES: She is definitely weak on the right, about a 4/5. Could be as a result of recent surgery. Decreased range of motion on the right. NEUROLOGIC: Oriented to name only. Follows commands. Sensory slightly decreased in the right lower extremity. SKIN: Warm, dry, intact but bruising all through the right hip and right arm. LABORATORY DATA: White blood cells 9000. Hemoglobin 9, hematocrit 30, platelet count 539,000. INR is 1.08, PTT is 27.5. Sodium 139, potassium 4.0, BUN 21, creatinine 0.6, glucose 110, calcium 9.8, bilirubin is 1.47, AST 20, ALT 12. Troponin 21. ProBNP 1283. Albumin 3.6, lactate 1.3. Urinalysis trace protein, 10 ketones, 2 urobilinogen, otherwise negative. Urine drug screen negative. IMAGING: Head CT, stable old strokes in the left frontal and parietal lobe. Stable mild to moderate periventricular white matter, chronic microvascular ischemia. No acute findings. Chest x-ray is emphysema with cardiomegaly. EKG, atrial fibrillation rate 82. ASSESSMENT/PLAN: 1. Possible new cerebrovascular accident versus worsening old cerebrovascular accident, right- sided weakness. Head CT with contrast pending. Unable to obtain MRI secondary to pacemaker. History of carotid artery stenosis with stent or endarterectomy, so we will get a new carotid ultrasound. Consult neurology. We will do aspirin, could consider resuming Xarelto given history she has been on in the past and she has chronic atrial fibrillation. 2. Chronic atrial fibrillation, rate controlled at this time. We will continue the beta dasia once it is verified. 3. Recent fall with right hip fracture, right wrist fracture, currently stable; performed by Dr. Abdi, physical therapy is reordered. 4. Hypertension. We will try to allow for permissive hypertension at this time. 5. Hypothyroidism. We will continue Synthroid once it is verified. 6. Deep venous thrombosis prophylaxis. Lovenox. Dictated by DEEP Chambers for Elliot Dobbins MD cc: DEEP Chambers MD
--- NOTE | 2019-10-12 14:37 | HISTORY AND PHYSICAL ---
ADDENDUM: Patient seen and examined by me [id number]. All the laboratory, vital signs and images were reviewed. Patient presented to the emergency department due to slurred speech, confusion and right-sided weakness, I do believe her right-sided weakness is stable considering that she has a previous fracture with immobilization of the right upper extremity and also a hip surgery recently during the previous hospitalization. She is still having some problems talking. She is able to say her name but she is not able to recognize her family members at the bedside. She does not know the names of them but she is able to recognize them but she is able to say that her son was there. She is following commands though, we did a CT head with contrast to rule out any acute issue but it looks like there is not acute disease or change from prior. We have requested evaluation by Neurology Department. Also she has been coughing up some phlegm which is thick, green, yellow and I will put this patient on antibiotics. She will receive some fluid as well, in the other hand she has a past medical history of lung cancer and esophageal cancer and apparently she has been having problems swallowing and has been choking with food so probably this patient has been having aspiration pneumonia, I will do a modified swallow evaluation which I already discussed with the family. I agree with the rest of the nurse practitioner's assessment and plan. cc: Elliot Dobbins MD
[2019-10-12] MEDS: ROCEPHIN 1 GM in NS 50 ML IV SCH (15:12)
--- NOTE | 2019-10-12 15:56 | NEUROLOGY CONSULTATION ---
DATE: 10/12/2019 HISTORY: Ms Ferris is 84 years old and there is question of neurologic event. She was in a rehab facility following management of orthopedic problems. History from attentive family and review of the hospital chart is that she seemed to have trouble maintaining alertness and had some slurred speech this morning. She apparently paged for help to the bathroom and attendant found her difficult to keep alert with slurred speech. Family at the bedside now reports she has seemed more alert in recent hours and speech is more easily understood. Emergency department note indicates report that [facility] staff found her unable to raise her right arm. Family does not report definite focal neurologic features to current episode. Family reports baseline forgetfulness going on for 2 or 3 years, gradually more prominent. There may have been transient increased confusion while hospitalized with her orthopedic management a few weeks ago, but that was not prominent and there was never altered awareness, unconsciousness, unresponsiveness, according to family. Family reports history of an episode of blank staring while standing without falling a few years ago and they believe there was some workup then. They do not recall diagnosis and specifically do not recall being told there was seizure. She has never taken medicine for seizure. She has had some other episodes when she seemed blank but would respond. She has not had kaci seizure. Family is not aware of any previous stroke diagnosis. They have been told of changes on imaging, but she apparently has not had clinical stroke. There is no history of ethanol use, illicit drug use, drug intoxication. There is not history of serious head injury. She has not had any recent medication changes at the [facility], according to family. The home medication list shows oxycodone p.r.n. Family believes she does not take that often. Urine drug screen was negative for opiates, negative for oxycodone, negative for all other on presentation here. I do not see anything else on the home medication list that would likely have significant INGREDIENT HANDLER effect. LABORATORY DATA: Lab includes chemistry showing minimally elevated blood sugar and nothing else remarkable from encephalopathy standpoint. PHYSICAL EXAMINATION: She has been afebrile here today. Systolic blood pressures have ranged 160s to 180s. Heart rate has ranged 80s to 90s. On exam, Ms. Ferris is awake. She was alert during my time at the bedside. She often had eyes closed but was attentive during that time. She was never poorly responsive during my time at the bedside. Speech is not significantly dysarthric but is feeble, weak, low volume and hoarse consistent with URI features. She had some trouble with commands requiring right/left distinction and digit distinction. Language function is otherwise intact on bedside testing. I did not test her cognitive function thoroughly. Head and neck are unremarkable. There is no meningismus. She was inconsistent with finger counting in visual ochoa to the left and to the right, but there was not a reproducible deficit. She has good lateral eye movement. She has diminished upgaze, typical for age. Facial motility is diminished bilaterally but appears symmetric. Gag is intact. Tongue protrudes in midline. She can hear. Shoulder shrug is equal. Tone seems increased in the left arm. She did rapid alternating movements a little better with the right hand than the left. She did better with right [id number] than with the left, but she had trouble bilaterally. She had trouble performing [id number] bilaterally. I did not test her gait. Reflexes 1+ at the wrists and absent at the ankles bilaterally. Plantar response is silent bilaterally. IMPRESSION: She has a mixture of relatively mild and somewhat inconsistent findings including increased tone in the left arm, some ataxia in the arms, a little bit worse on the left, inattention to visual field testing, some right/left distinction and digit distinction problems. Family reports she is consistently right-handed so language should be a left hemisphere function. Therefore, these features are likely either insignificant or represent problems in each hemisphere. CT scan shows old left parieto-occipital encephalomalacia, but no acute changes. The CT appears unchanged at least as far back as 2014. The episode of blank staring is consistent with partial seizure. She has had some other episodes raising question of seizure. She might have had seizure this morning with postictal right hemiparesis which resolved prior to her presentation here. I will order EEG. There is clear history of baseline cognitive impairment with typical progression. Family does not recall cholinesterase inhibitor trial. We might consider that electively, not urgent. Depending on her clinical course and EEG report, we might need to consider further imaging, but I do not think that is necessary now. Thanks for asking Neurology to see Ms. Ferris. cc: MD MARIANELA Dudley III
[2019-10-12] MEDS: ZITHROMAX 500 MG/NS 500 MG/250 ML IVPB IV SCH (17:37)
[2019-10-12] MEDS: MUCINEX PO SCH (21:30)
[2019-10-12] MEDS: ZINC SULFATE PO SCH (21:30)
[2019-10-13] MEDS: NS 1,000 ML IV SCH (02:35)
[2019-10-13 05:28] LABS: EOS# 0.05 X1000 (0.0-0.7); EOS% 0.5 % (0.0-10.0); HEMATOCRIT 29.3 % (37.0-47.0); HEMOGLOBIN 8.7 g/dL (12.0-16.0); IMM GRAN# 0.03 X1000 (0.0-0.04); IMM GRAN% 0.3 % (0.0-0.5); LYMPH# 0.13 X1000 (1.2-3.4); LYMPH% 1.2 % (20.5-51.1); MCH 28.2 PG (27-31); MCHC 29.7 g/dL (33-37); MCV 94.8 FL (81-99); MONO# 0.74 X1000 (0.11-0.59); NEUT# 9.61 X1000 (1.4-6.5); PLT 338 X1000 (130-400); RBC 3.09 XMIL (4.2-5.4); RDW 18.7 % (11.5-14.5); WBC 10.56 X1000 (4.8-10.8)
[2019-10-13 05:54] LABS: AGAP 15; ALB/GLOB RATIO 1.1; ALBUMIN 3.2 g/dL (3.5-5.0); ALKALINE PHOSPHATASE 114 U/L (32-104); BUN 12 mg/dL (8-22); CALCIUM 8.3 mg/dL (8.8-10.2); CHLORIDE 97 mmol/L (98-107); COSMO 281; CREATININE 0.4 mg/dL (0.5-0.9); ESTIMATED GFR > 60; GLUCOSE 102 mg/dL (70-104); GOT 18 U/L (10-30); GPT 10 U/L (10-36); MAGNESIUM 1.7 mg/dL (1.5-2.7); SODIUM 141 mmol/L (136-145); TCO2 29 mmol/L (25-35); TOTAL BILIRUBIN 1.23 mg/dL (0.20-1.00)
[2019-10-13 07:27] LABS: SEGS 98 % (42-75)
[2019-10-13] MEDS: LOVENOX SUBQ SCH (09:00)
--- NOTE | 2019-10-13 10:51 | Diag Imaging Result Doc PS360 ---
EXAM: BA SWALLOW W/VIDEO SPEECH THER 10/13/2019 HISTORY: Dysphagia TECHNIQUE: 112 images, four mGy, 14 seconds fluoroscopy time. COMMENT: The patient eventually swallowed the liquid barium after some delay. There is trace aspiration which does elicit a cough reflex. The spleen consistent barium also demonstrated some aspiration. IMPRESSION: Mild aspiration. Electronically signed by Quinten Umaña 10/13/2019 10:49 AM
--- NOTE | 2019-10-13 13:10 | NEUROLOGY PROGRESS NOTE ---
DATE: 10/13/2019 Ms. Ferris is brighter, more alert, more attentive, and more spontaneous this morning. She followed commands requiring right/left distinction. She has more consistent difficulty counting fingers in the right visual field than the left. Right arm weakness persists. Barium swallow showed aspiration. CT shows old left hemisphere encephalomalacia consistent with prior infarction but no evidence of acute lesion. She has been afebrile. Systolic blood pressures have ranged 140s-160s in the last 24 hours. EEG showed generalized slowing, sometimes prominent movement and muscle contraction artifacts but no definite epileptiform discharge. There was slowing in the left hemisphere more prominent than the right at times. IMPRESSION: Mild right hemiparesis, possible transient dysphasia, persistent relative right hemianopia. All of this is consistent with the CT finding of old left hemisphere infarction. We do not have evidence of acute brain lesion. Seizure is still a consideration with possibility of postictal transient right hemiparesis and hemianopia greater than baseline, but that diagnosis is not definite. She has cardiac pacemaker present and so MRI is not an option. We might consider a third CT later. No urgent suggestions. She seems clinically improved today. Thanks for asking Neurology to see Ms. Ferris. cc: MD MARIANELA Dudley III
--- NOTE | 2019-10-13 13:11 | EEG REPORT ---
DATE: 10/13/2019 EEG NUMBER: [id number]. COMMENT: This is a digitally recorded EEG on an 84-year-old patient with possible recent altered awareness, right hemianopia, right hemiparesis, imaging evidence of prior left hemisphere infarction, question of recent seizure. FINDINGS: During waking, poorly sustained 8 hertz posterior rhythm is present over the right hemisphere, but not seen on the left. Background contains polymorphic and rhythmic theta over the frontal and central regions with occasional slowing into the delta range, slower activity a little bit more prominent over the left than the right. Drowsing occurred with appearance of more generalized slowing. Stage 2 sleep was not recorded. Photic stimulation did not significantly alter the record. No definite epileptiform discharge was identified. Some movement, muscle contraction, and eye blink artifacts were present, but did not hinder interpretation. INTERPRETATION: Abnormal electroencephalogram because of moderate generalized slowing and additional more prominent slowing in the left hemisphere. CORRELATION: This is indicative of a diffuse encephalopathy, and is nonspecific. There is evidence of more focal disturbance of electric cortical activity in the left hemisphere, which would correlate with the known structural lesion there. The absence of epileptiform discharges does not exclude a clinical diagnosis of seizure. cc: Nayeli Overton III, MD MTDD
[2019-10-13] MEDS: ROCEPHIN 1 GM in NS 50 ML IV SCH (14:10)
--- NOTE | 2019-10-13 15:22 | PROGRESS NOTE ---
DATE: 10/13/2019 SUBJECTIVE: The patient is resting comfortably in bed. She is not complaining of pain at this moment. She is following commands but she is confused. She is able to say her name. She knows she is in a hospital but she does not remember the time and she is not able to recognize her family members at the bedside. Neurology Department is following this patient. We did a modified barium swallow that showed some aspiration. I will request an evaluation by Gastroenterology Department to see if we can help with this dysphagia. I will add some lipids and Clinimix to her fluids. I will replace the potassium through the IV fluids as well. She has a history of esophageal dilation before and she has a history of esophageal cancer and aspiration pneumonia. OBJECTIVE: Vital Signs: Temperature 98.3 degrees, pulse 92 respiratory rate 27, blood pressure 155/71, oxygen saturation 100% on 3 L of nasal cannula. HEENT: Head normocephalic. No trauma. PERRLA. Neck: Supple. No JVD. No masses. Central trachea. Chest: Coarse breath sounds at the bases with some crepitus. Mild rhonchi, mostly on the left side. Abdomen: Soft, nontender, nondistended. No hepatosplenomegaly. Extremities: No edema. No clubbing. No cyanosis. Neurological: The patient is awake. She is following commands for me. She does have mild right- sided weakness. She has a history of stroke as well. She is able to say her name. She knows she is in the hospital but she is not able to recognize family members at the bedside. She is not oriented to time. She is following commands consistently. LABORATORY: WBC 10.5, hemoglobin 8.7, hematocrit 29.3, platelets 338,000. Sodium 141, potassium 3, chloride 97, bicarbonate 29, BUN 12, creatinine 0.4, glucose 102, calcium 8.3. AST 18, ALT 10, alkaline phosphatase 114, albumin 3.2. ASSESSMENT AND PLAN: 1. Encephalopathy in a patient with a previous cerebrovascular accident and right-sided weakness. I am not quite sure if this patient has a new stroke. Head CT scan is negative. We cannot get an MRI because of the pacemaker. Neurology Department is on board. For now we will continue with the same management. She has been placed on aspirin. She is on Lovenox. I have restarted her medications. 2. Dysphagia. I did a modified swallow evaluation and it showed aspiration. I have requested an evaluation by Gastroenterology Department to see if we can do something for her. Apparently, her esophagus has been dilated before. We will wait for their recommendations. She is NPO for now. I will add Clinimix and lipids to her medications. 3. Chronic atrial fibrillation, rate controlled. Continue with beta blockers. 4. Recent fall with right hip fracture and right wrist fracture, stable. That was done by Dr. Abdi before. Physical therapy has been requested as well as occupational therapy. Because of her current condition, speech therapy has been consulted as well. 5. History of lung cancer and esophageal cancer. Apparently she has been stable. Her doctor is in another medical center. I will ask Gastroenterology Department to evaluate this patient to see if she has an esophageal stricture that is causing this dysphagia and aspiration. 6. Hypertension. This patient has been placed back on her medications. 7. Hypothyroidism. Continue with levothyroxine. If she cannot swallow her pills, probably we can put this patient on IV treatment. 8. Hypokalemia. I will replace the potassium through her IV fluids. cc: Elliot Dobbins MD
[2019-10-13] MEDS: PRILOSEC PO SCH (15:34)
[2019-10-13] MEDS: ASPIRIN PO SCH (15:35)
[2019-10-13] MEDS: MUCINEX PO SCH (15:35)
[2019-10-13] MEDS: VITAMIN C PO SCH (15:35)
[2019-10-13] MEDS: ZINC SULFATE PO SCH (15:36)
[2019-10-13] MEDS: NS + KCL 20 MEQ 1,000 ML IV SCH (15:58)
[2019-10-13] MEDS: CLINIMIX E 4.25%-5% SOLUTION 1,000 ML IV SCH (15:59)
[2019-10-13] MEDS: LIPOSYN 20% 500 ML IV SCH (15:59)
[2019-10-13] MEDS: LOPRESSOR PO SCH (16:10)
--- NOTE | 2019-10-13 16:30 | EKG Report ---
Test Performed on : 10/13/2019 4:21:24 PM Test Reason : A-FIB WITH RVR Blood Pressure : / mmHG Vent. Rate : 116 BPM Atrial Rate : 127 BPM P-R Int : 000 ms QRS Dur : 088 ms QT Int : 320 ms P-R-T Axes : 000 047 -85 degrees QTc Int : 444 ms Atrial fibrillation. with rapid ventricular response. with premature ventricular or aberrantly conduc ezekiel complexes. Voltage criteria for left ventricular hypertrophy Anteroseptal infarct , age undetermined Marked ST abnormality, possible inferolateral subendocardial injury Abnormal ECG Confirmed by Rosalinda Morris MD ([id number]) on 10/14/2019 8:41:07 AM
[2019-10-13] MEDS: ZITHROMAX 500 MG/NS 500 MG/250 ML IVPB IV SCH (17:46)
--- NOTE | 2019-10-13 19:06 | GASTROENTEROLOGY CONSULTATION ---
DATE: 10/13/2019 REASON FOR CONSULTATION: Dysphagia. HISTORY OF PRESENT ILLNESS: This is an 84-year-old female. She was admitted to the hospital on 10/12/2019. The patient had recently fallen about 2 weeks ago and fractured her right hip and arm. She had surgery by Dr. Abdi. She was residing at [facility]. Apparently, she was found unresponsive and an ambulance was called. She does have a history of a CVA. They have had evaluation for possible recurrent stroke, but her CT scan was negative and due to her having a pacemaker, unable to do an MRI. She has been seen by Neurology. During hospitalization, the patient has had a modified barium swallow with noted mild aspiration. There was trace aspiration eliciting a cough reflex. The patient does have a history of esophageal cancer. The patient unable to assist with review of systems. At the time of my evaluation, her sister and brother were at the bedside. They did assist with some information. Her children had left to go back to the [place] to take care of some paperwork. They are not fully aware of when the exact diagnosis of esophageal cancer was. She did have surgery. I believe she was seen by a adjunct professor of u.s. history at another medical facility and surgeon at another medical facility. I am not sure if she has had repeat EGDs or not. PAST MEDICAL HISTORY: History of left CVA, history of esophageal cancer, skin cancer, lung cancer, atrial fibrillation, the patient has a pacemaker, hypertension, hypothyroidism, recent fall, fractured hip and arm. She also had a pneumothorax on the right. She did not require a chest tube per family report. PAST SURGICAL HISTORY: Right hemiarthroplasty with bipolar hip implant, open reduction and internal fixation of right wrist. sections, permanent pacemaker placement, hysterectomy, left foot surgery, history of left carotid surgery. ALLERGIES: Sulfonamides. HOME MEDICATIONS: Vitamin C 500 mg daily, Mucinex 600 mg twice a day, Synthroid 50 mcg daily, lisinopril 20 mg daily, milk of magnesia 30 mL daily as needed, Lopressor 50 mg twice a day, oxycodone 5 mg every 3 hours as needed, zinc 220 twice a day. SOCIAL HISTORY: No tobacco or alcohol use. She had been residing at [facility] in [place]. REVIEW OF SYSTEMS: Per history of present illness. Information is obtained from the chart and the family members, her sister and brother. The patient not able to assist with review of systems at this time. PHYSICAL EXAMINATION: Vital Signs: Temperature 98.3 degrees, pulse 92, respirations 27, blood pressure 155/71. General: The patient was resting. She did arouse. Speech is somewhat slurred. I could make out some of what she was saying, but not everything. She did follow commands. Left hand dental ceramist is strong. Right hand dental ceramist slightly weak, history of recent fracture. HEENT: Normocephalic, atraumatic. Pupils equal, round, and reactive to light. Sclerae nonicteric. Respiratory: With rhonchi noted bilaterally, more on the left side. Abdomen: Soft, nontender. Patient is thin. Cardiovascular: She has a pacemaker. Extremities: No lower extremity edema noted. Right hip with Steri-Strips in place from previous hip surgery. Neurological: The patient does follow commands. Her speech is slurred. DIAGNOSTIC RESULTS: Laboratory: Hematology: WBC 10.56, hemoglobin 8.7, hematocrit 29.3, MCV 94.8, platelet 338,000. Coagulation: ProTime 14.2, INR 1.08, PTT 27.5. Chemistry: Sodium 141, potassium 3.0, chloride 97, CO2 29, BUN 12, creatinine 0.4, glucose 102, calcium 8.3, magnesium 1.7, total bilirubin 1.23, AST 18, ALT 10, alkaline phosphatase 114, total protein 6.0, albumin 3.2. IMAGING: Head CT showing no acute disease or change from prior. Initial head CT showed no acute change on 10/12. ASSESSMENT AND PLAN: 1. Recent fall with hip fracture and right wrist fracture along with right pneumothorax. 2. Dysphagia. A modified barium swallow showing some mild aspiration. 3. Aphagia. CT scan not showing evidence of new stroke. Unable to do MRI because patient has a pacemaker. 4. Chronic atrial fibrillation. 5. History of lung cancer and esophageal cancer. Apparently, the patient has had esophageal dilation in the past. PLAN: Continue current medications. Clinimax has been started. Modified barium swallow showing mild aspiration. The patient is being held NPO. I will discuss with Dr. Ugalde further plans regarding possibility of esophagogastroduodenoscopy. She may require a nasogastric feeding tube or percutaneous endoscopic gastrostomy tube placement depending on progress. I have discussed this with the family that was available. Her children were not there at the time of my visit. Further plans to be made as needed. Thank you for this consultation. Dictated by DEEP Gilbert for Brennan Ugalde MD cc: DEEP Bauman MD
--- NOTE | 2019-10-13 19:21 | Carotid Study ---
DATE: 10/12/2019 REFERRING PRACTITIONER: DEEP Chambers READING PHYSICIAN: Luis A Washington MD MANUFACTURING SUPERVISOR: [place]. INDICATION: Stroke. There is a comparison study on 12/30/2016. FINDINGS: The right subclavian, common, internal and external carotid arteries were imaged as well as the vertebral artery. In the distal common carotid as well as bulb, there is some atherosclerotic disease producing elevated velocities and turbulent flow. The left subclavian, common, internal, external, and carotid and vertebral arteries were imaged. There is irregular atherosclerotic changes and calcific plaque involving the common carotid artery and bulb; however, no significant elevations in velocity or areas of turbulence are identified. There is antegrade vertebral flow bilaterally. The percent stenosis is 40 to 59 percent on the right, 0 to 39 percent on the left. INTERPRETATION: There is bilateral atherosclerotic disease and plaque mainly in the right common and internal carotid arteries where there is some disturbance of flow. It does not appear to be hemodynamically significant, and it did not appear to be present on the prior study on 12/30/2016. The stenosis in the left common carotid artery noted previously is not seen on this present study. cc: MD Roseann Cantu CRNP
[2019-10-14] MEDS: MUCINEX PO SCH ×3 (00:45→22:59)
[2019-10-14] MEDS: ZINC SULFATE PO SCH ×3 (00:45→22:58)
[2019-10-14] MEDS: LOPRESSOR PO SCH ×3 (00:54→22:58)
[2019-10-14 05:25] LABS: HEMATOCRIT 28.6 % (37.0-47.0); HEMOGLOBIN 8.8 g/dL (12.0-16.0); IMM GRAN# 0.03 X1000 (0.0-0.04); IMM GRAN% 0.3 % (0.0-0.5); LYMPH# 0.51 X1000 (1.2-3.4); LYMPH% 4.8 % (20.5-51.1); MCH 28.6 PG (27-31); MCHC 30.8 g/dL (33-37); MCV 92.9 FL (81-99); MONO# 0.38 X1000 (0.11-0.59); MONO% 3.6 % (1.7-9.3); MPV 9.9 FL (7.4-10.4); NEUT# 9.67 X1000 (1.4-6.5); NEUT% 91.3 % (42.2-75.2); PLT 285 X1000 (130-400); RBC 3.08 XMIL (4.2-5.4); RDW 18.4 % (11.5-14.5); WBC 10.59 X1000 (4.8-10.8)
[2019-10-14] MEDS: SYNTHROID PO SCH (06:04)
[2019-10-14] MEDS: PRILOSEC PO SCH (06:04)
[2019-10-14 06:17] LABS: ALB/GLOB RATIO 1.6; ALBUMIN 3.3 g/dL (3.5-5.0); ALKALINE PHOSPHATASE 114 U/L (32-104); BUN 10 mg/dL (8-22); CALCIUM 8.3 mg/dL (8.8-10.2); CREATININE 0.3 mg/dL (0.5-0.9); ESTIMATED GFR > 60; GLUCOSE 119 mg/dL (70-104); GOT 23 U/L (10-30); GPT 9 U/L (10-36); MAGNESIUM 1.7 mg/dL (1.5-2.7); TCO2 30 mmol/L (25-35); TOTAL BILIRUBIN 1.15 mg/dL (0.20-1.00); TOTAL PROTEIN 5.3 g/dL (6.3-8.3)
[2019-10-14 06:47] LABS: AGAP 15; CHLORIDE 90 mmol/L (98-107); COSMO 270; SODIUM 135 mmol/L (136-145)
[2019-10-14 06:48] LABS: POTASSIUM 2.5 mmol/L (3.5-5.1)
[2019-10-14] MEDS: ASPIRIN PO SCH (10:06)
[2019-10-14] MEDS: VITAMIN C PO SCH (10:06)
[2019-10-14] MEDS: POTASSIUM CHLORIDE 20 MEQ/SWI 20 MEQ/100 ML IVPB IV SCH ×2 (10:07→13:00)
[2019-10-14] MEDS: LOVENOX SUBQ SCH (10:07)
[2019-10-14] MEDS: PRINIVIL PO SCH (10:07)
--- NOTE | 2019-10-14 10:35 | NEUROLOGY PROGRESS NOTE ---
DATE: 10/14/2019 Ms. Ferris is even brighter and more alert today. She was more attentive and a little bit more spontaneous. I observed her performance on swallowing test. She was very attentive to instructions. She continues to have at least a relative right hemianopia based on confrontational finger counting today. I do not find any new neurologic deficit on limited bedside testing this morning. Her EEG showed generalized slowing and more prominent slowing in the left hemisphere, but no evidence of seizure. I do not have a definite explanation for her apparent neurologic change a few days ago, just prior to her presentation here. Seizure is not impossible, but with her stable course and lack of EEG findings, I do not think we need to add medicine for seizure control at this point. She might have had some extension of her prior left hemisphere infarction, but we have not been able to document that with imaging. Unfortunately, MRI is not an option. I do not have any urgent suggestions today. I hope she will continue to improve. Thanks for asking Neurology to see Ms. Ferris. I discussed my impression with family at the bedside today. cc: MD MONICO Dudley IIID
--- NOTE | 2019-10-14 15:06 | PROGRESS NOTE ---
DATE: 10/14/2019 SUBJECTIVE: I have seen and examined Ms. Ferris this morning. She is sitting down. Family members were at the bedside at the time of the encounter. OBJECTIVE: General: Ms. Ferris is an 84-year-old elderly female. She is in bed, no distress. HEENT: Mucosa is pink and moist. Anicteric. Acyanotic. Neck: Supple. Chest: Good air entry bilaterally. There were no crackles, no rhonchi. Cardiovascular: Regular rate and rhythm. GI/Abdomen: Soft, nontender. Bowel sounds present. Extremities: No pedal edema. TUMBLERS SUPERVISOR: Patient is awake, alert, oriented, is able to recognize the son, who was sitting at the end of the bed. She seems to have a right homonymous hemianopsia. LABORATORY DATA: There is mild normocytic anemia. Urinalysis is fine. Potassium is 2.5. Rest of chemistry is unremarkable. So far, sputum culture shows normal susi. IMAGING STUDIES: Including a CT scan of the head shows no acute disease. A carotid ultrasound shows bilateral arteriosclerotic disease and plaque mainly in the right common and internal carotid, where there is some disturbance of flow. It does not appear to be hemodynamically significant. ASSESSMENT: 1. Altered mental status on presentation due to global encephalopathy; that seems to have improved. Unsure if that was delirium. 2. Dysphagia. The patient has been evaluated, was found to have some aspirations and been recommended to be on nothing by mouth. 3. Chronic atrial fibrillation, currently rate controlled. Continue with beta dasia. 4. Recent fall with right hip fracture and right wrist fracture. 5. History of lung and esophageal cancer, stable. 6. Hypertension. 7. Hypokalemia. Will continue to replace. cc: Lawson Johnson MD
[2019-10-14] MEDS: ROCEPHIN 1 GM in NS 50 ML IV SCH (15:54)
[2019-10-14] MEDS: NS + KCL 20 MEQ 1,000 ML IV SCH (15:55)
[2019-10-14] MEDS: CLINIMIX E 4.25%-5% SOLUTION 1,000 ML IV SCH (16:01)
[2019-10-14] MEDS: LIPOSYN 20% 500 ML IV SCH (16:01)
--- NOTE | 2019-10-14 18:25 | GASTROENTEROLOGY PROGRESS NOTE ---
DATE: 10/14/2019 SUBJECTIVE: The patient was asleep in no acute distress at the time my visit. Her son was at the bedside. He states his mom has been more alert and her speech has improved, but she is still not recognizing the family. The patient was also seen by Dr. Ugalde. Due to patient's aspiration on imaging, EGD is recommended. Family agrees to proceed. OBJECTIVE: Vital Signs: Temperature 98 degrees, pulse 75, respirations 19, blood pressure 136/58. General: Patient was asleep, in no acute distress. LABORATORY: Hematology: WBC 10.59, hemoglobin 8.8, hematocrit 28.6, MCV 92.9, platelets 285,000. Coagulation: ProTime 14.2, INR 1.08, PTT 27.5. Chemistry: Sodium 135, potassium 2.5, chloride 90, CO2 30, BUN 10, creatinine 0.3, glucose 119, calcium 8.3, total bilirubin 1.15. AST 23, ALT 9, alkaline phosphatase 114. ASSESSMENT AND PLAN: 1. Dysphagia. 2. Abnormal barium swallow showing aspiration. 3. History of esophageal ulcer. PLAN: Continue current management. We will proceed with esophagogastroduodenoscopy tomorrow for further evaluation of her dysphagia. I have discussed the risks versus benefits with the family and they wish to proceed. Further plans to be made as needed. The patient was also seen by Dr. Ugalde. Dictated by DEEP Gilbert for Brennan Ugalde MD cc: DEEP Bauman MD
[2019-10-14] MEDS ORDERED: BLISTEX MEDICATED BERRY LIP BALM TOP ONE (18:52)
[2019-10-14] MEDS: ZITHROMAX 500 MG/NS 500 MG/250 ML IVPB IV SCH (19:25)
[2019-10-15 05:41] LABS: BASO# 0.01 X1000 (0.0-0.2); BASO% 0.1 % (0.0-0.8); EOS# 0.01 X1000 (0.0-0.7); EOS% 0.1 % (0.0-10.0); HEMATOCRIT 27.5 % (37.0-47.0); HEMOGLOBIN 8.3 g/dL (12.0-16.0); IMM GRAN# 0.02 X1000 (0.0-0.04); IMM GRAN% 0.3 % (0.0-0.5); LYMPH# 0.39 X1000 (1.2-3.4); LYMPH% 5.6 % (20.5-51.1); MCH 28.1 PG (27-31); MCHC 30.2 g/dL (33-37); MCV 93.2 FL (81-99); MONO% 2.9 % (1.7-9.3); MPV 10.3 FL (7.4-10.4); NEUT# 6.36 X1000 (1.4-6.5); PLT 226 X1000 (130-400); RBC 2.95 XMIL (4.2-5.4); RDW 18.1 % (11.5-14.5); WBC 6.99 X1000 (4.8-10.8)
[2019-10-15 05:50] LABS: AGAP 10; ALB/GLOB RATIO 1.1; ALBUMIN 2.7 g/dL (3.5-5.0); ALKALINE PHOSPHATASE 100 U/L (32-104); BUN 14 mg/dL (8-22); CALCIUM 7.8 mg/dL (8.8-10.2); CHLORIDE 97 mmol/L (98-107); COSMO 275; CREATININE 0.3 mg/dL (0.5-0.9); ESTIMATED GFR > 60; GLUCOSE 109 mg/dL (70-104); GOT 25 U/L (10-30); GPT 9 U/L (10-36); MAGNESIUM 1.7 mg/dL (1.5-2.7); POTASSIUM 2.9 mmol/L (3.5-5.1); SODIUM 137 mmol/L (136-145); TCO2 30 mmol/L (25-35); TOTAL BILIRUBIN 0.82 mg/dL (0.20-1.00); TOTAL PROTEIN 5.2 g/dL (6.3-8.3)
[2019-10-15 06:21] LABS: LYMPHS 6 % (21-51); MONO 2 % (1-9); SEGS 92 % (42-75)
[2019-10-15] MEDS: PRILOSEC PO SCH (08:11)
[2019-10-15] MEDS: SYNTHROID PO SCH (08:12)
[2019-10-15] MEDS ORDERED: MAGNESIUM SULFATE 2 GM/S.W.I. 2 GM/50 ML IVPB IV ONE (08:48)
[2019-10-15] MEDS: ASPIRIN PO SCH (10:29)
--- NOTE | 2019-10-15 10:56 | ENDOSCOPY OPERATIVE NOTE ---
[facility] ENDOSCOPY OPERATIVE NOTE , PATIENT: Sandra Ferris ADMISSION DATE: 10/15/2019 MR#: [id number] : 1935 [facility] [id number] EGD PROCEDURE REPORT PROCEDURE DATE: 10/15/2019 SURGEON: Brennan Ugalde MD STATUS: inpatient [employer] ARCHITECT: Alley Browning and Teresa De Leon PREOPERATIVE DIAGNOSIS: The patient is a 84 yr old female here for an EGD due to dysphagia, pharynge al-esophageal . PROCEDURE PERFORMED: EGD w/ dilation of esophagus via guidewire MEDICATIONS: Per Anesthesia TOPICAL ANESTHETIC: none CONSENT: The patient understands the risks and benefits of the procedure and understands that these r isks include, but are not limited to: sedation, allergic reaction, infection, perforation and/or bleeding. Alternative means of evaluation and treatment include, among others: physical exam, x-rays, and/or surgical intervention. The patient elects to proceed with this endoscopic procedure. HISORY AND PHYSICAL: 10/15/2019 DESCRIPTION OF PROCEDURE: During intra-op preparation period all mechanical and medical equipment was checked for proper function. Hand hygiene and appropriate measures for infection prevention was taken. After the risks, benefits and alternatives of the procedure were thoroughly explained, Informed consent was verified, confirmed and timeout was successfully executed by the treatment team. The patient was anesthetized with topical anesthesia and the [id number] ([id number]) endoscope was introduced through the mouth and advanced to the second portion of the duoden um. Retroflexion was performed in the stomach and revealed no abnormalities. The gastroscope was then slowly withdraw n and removed. ESOPHAGUS: There was a short benign appearing stricture 20 cm from the incisors. The stricture was t raversable. The stricture was dilated using a 14mm (42Fr) savary dilator over guidewire. Following this dilation, th ere was a small mucosal rent and a small amount of heme. The esophagus was otherwise normal. STOMACH: Moderate gastritis (inflammation) was found in the gastric antrum. The stomach otherwise a ppeared normal. DUODENUM: The duodenal mucosa showed no abnormalities. SPECIMENS REMOVED: No ADVERSE EVENTS: There were no complications. POSTOPERATIVE DIAGNOSIS: 1. There was a short stricture 20 cm from the incisors; The stricture w as dilated using a 14mm (42Fr) savary dilator over guidewire.; Following this dilation, there was a small mucosal rent a nd a small amount of heme 2. The esophagus was otherwise normal 3. Gastritis (inflammation) was found in the gastric antrum 4. The stomach otherwise appeared normal 5. The duodenal mucosa showed no abnormalities RECOMMENDATIONS: 1. Resume pre-procedure medications 2. Resume current medications 3. Start taking the following medications as prescribed: Carafate. 4. Return to floor when standard parameters are met REPEAT EXAM: Brennan Ugalde MD eSigned: Brennan Ugalde MD 10/15/2019 10:56 AM cc: PATIENT NAME: Sandra Ferris MR#: [id number]
[2019-10-15] MEDS: LOVENOX SUBQ SCH (11:44)
[2019-10-15] MEDS: MUCINEX PO SCH ×2 (11:59→21:07)
[2019-10-15] MEDS: PRINIVIL PO SCH (11:59)
[2019-10-15] MEDS: LOPRESSOR PO SCH ×2 (11:59→21:07)
[2019-10-15] MEDS: ZINC SULFATE PO SCH ×2 (12:00→21:07)
[2019-10-15] MEDS: VITAMIN C PO SCH (12:00)
[2019-10-15] MEDS: POTASSIUM CHLORIDE 20 MEQ/SWI 20 MEQ/100 ML IVPB IV SCH ×2 (13:17→17:40)
[2019-10-15] MEDS: CARAFATE LIQUID PO SCH ×2 (14:31→21:08)
--- NOTE | 2019-10-15 14:41 | PROGRESS NOTE ---
DATE: 10/15/2019 SUBJECTIVE: This morning, Ms. Ferris refers to be doing well. The daughter was at the bedside at the time of the encounter. Ms. Ferris had just come out of the EGD. The report has been noted. The daughter referred that Ms. Ferris has been able to take a few bites of her pudding. OBJECTIVE: Vital signs: Blood pressure is 177/70, pulse of 109, respirations 20, temperature 98.1 degrees. The patient is saturating 100%. General: Ms. Ferris is an 84-year-old elderly female. She is in bed. No distress. HEENT: Mucosa is pink and moist. Anicteric. Acyanotic. Neck: Supple. Chest: Good air entry bilateral. There were no crepitations. No rhonchi. Cardiovascular: Regular rate and rhythm with occasional extrasystolic beats. No murmur. No rubs. No gallops. Gastrointestinal: Abdomen is soft. Bowel sounds present. Extremities: No pedal edema. Central Nervous System: Patient is awake, alert, oriented to place and to person. She seems to have mild weakness on the right side and she does have a right homonymous hemianopsia. LABORATORY DATA: WBC is 6.99, hemoglobin is 8.3, platelet count of 226. Chemistry is also reviewed. Potassium is up to 2.9 rest of rest of chemistry for most part is unremarkable. Albumin is 2.7. So far, sputum culture shows normal susi. IMAGING STUDIES: No imaging studies today. DIAGNOSTIC DATA: The endoscopy report shows that there was a short stricture at 20 cm from the incisors which was dilated. The esophagus otherwise was normal. There was gastritis found in the gastric antrum. Otherwise, stomach and duodenum showed no abnormality. Recommendations from the EGD has been noted. ASSESSMENT: 1. Altered mental status on presentation secondary to global encephalopathy. The patient's mentation seems to have improved. 2. Mild right-sided hemiparesis associated with right homonymous hemianopsia concerning for a left cortical stroke. Fortunately, patient's CT scan which was done on admission did not show any abnormality. We will plan to repeat the scan on Friday. 3. Dysphagia secondary to esophageal stricture. Patient is status post dilatation. Since then she seems to be tolerating her pudding diet. We will see if we can advance her diet by tomorrow to just puree. 4. Chronic atrial fibrillation currently rate controlled. Patient is on beta dasia. No anticoagulation because of fall risk. 5. Recent fall with right hip fracture and right wrist fracture status post intervention. 6. Remote history of lung and esophageal cancer. 7. Hypertension. We will continue with titrating the medications. 8. Hypokalemia. Will continue supplement. 9. Protein calorie malnutrition. Patient is on Clinimix with lipid infusion. We will continue with her diet. We have also started her on supplements. 10. Disposition. I think Ms Ferris will continue working with physical therapy and hopefully can get her to rehab by Friday. cc: Lawson Johnson MD
[2019-10-15] MEDS: ZITHROMAX 500 MG/NS 500 MG/250 ML IVPB IV SCH (15:41)
[2019-10-15] MEDS: CLINIMIX E 4.25%-5% SOLUTION 1,000 ML IV SCH (15:43)
[2019-10-15] MEDS: LIPOSYN 20% 500 ML IV SCH (15:44)
[2019-10-15] MEDS: NS + KCL 20 MEQ 1,000 ML IV SCH (17:57)
[2019-10-15] MEDS: ROCEPHIN 1 GM in NS 50 ML IV SCH (21:07)
[2019-10-16] MEDS: CARAFATE LIQUID PO SCH ×4 (02:34→21:15)
[2019-10-16 05:32] LABS: EOS# 0.04 X1000 (0.0-0.7); EOS% 0.6 % (0.0-10.0); HEMATOCRIT 30.8 % (37.0-47.0); HEMOGLOBIN 9.4 g/dL (12.0-16.0); IMM GRAN# 0.02 X1000 (0.0-0.04); IMM GRAN% 0.3 % (0.0-0.5); LYMPH# 0.76 X1000 (1.2-3.4); LYMPH% 12.1 % (20.5-51.1); MCH 28.2 PG (27-31); MCHC 30.5 g/dL (33-37); MCV 92.5 FL (81-99); MONO# 0.37 X1000 (0.11-0.59); MONO% 5.9 % (1.7-9.3); MPV 10.9 FL (7.4-10.4); NEUT# 5.07 X1000 (1.4-6.5); NEUT% 81.1 % (42.2-75.2); PLT 246 X1000 (130-400); RBC 3.33 XMIL (4.2-5.4); RDW 17.8 % (11.5-14.5); WBC 6.26 X1000 (4.8-10.8)
[2019-10-16 06:03] LABS: AGAP 12; ALB/GLOB RATIO 1.1; ALBUMIN 2.9 g/dL (3.5-5.0); ALKALINE PHOSPHATASE 111 U/L (32-104); BUN 11 mg/dL (8-22); CALCIUM 8.2 mg/dL (8.8-10.2); CHLORIDE 98 mmol/L (98-107); COSMO 279; CREATININE 0.3 mg/dL (0.5-0.9); ESTIMATED GFR > 60; GLUCOSE 111 mg/dL (70-104); GOT 28 U/L (10-30); GPT 9 U/L (10-36); MAGNESIUM 2.1 mg/dL (1.5-2.7); POTASSIUM 3.6 mmol/L (3.5-5.1); SODIUM 140 mmol/L (136-145); TCO2 30 mmol/L (25-35); TOTAL BILIRUBIN 0.82 mg/dL (0.20-1.00); TOTAL PROTEIN 5.6 g/dL (6.3-8.3)
[2019-10-16] MEDS: PRILOSEC PO SCH (06:23)
[2019-10-16] MEDS: SYNTHROID PO SCH (06:23)
--- NOTE | 2019-10-16 09:22 | PROGRESS NOTE ---
DATE: 10/16/2019 SUBJECTIVE: I have seen and examined Ms. Ferris today. Ms. Ferris refers to be doing well, denies any new complaints. OBJECTIVE: Vital signs: Blood pressure is 187/81, pulse of 93, respiration is 17, temperature is 98.5 degrees. Patient is saturating 96% on room air. General: Ms. Ferris, 84-year-old female. She is in bed, no distress. HEENT: Mucosa is pink and moist. Anicteric. Acyanotic. Neck: Supple. Chest: Air entry is bilaterally reduced. There is still diffuse wet crackles in the posterior lung ochoa. Cardiovascular: Regular rate and rhythm with occasional extrasystolic beat. No murmur, no rubs. Gastrointestinal: Abdomen is soft, minimally distended in the lower abdomen. Bowel sounds present but hypoactive. Extremities: No pedal edema. OPERATER: Patient is awake, alert, and oriented. She does have mild right side weakness and also continues to have right homonymous hemianopsia. The patient's I's and O's: Urine output was 2550. She is still positive balance of 1045. Patient still has not had a bowel movement. MEDICATIONS: Have all been reviewed, no changes. ASSESSMENT: 1. Altered mental status on presentation secondary to global encephalopathy, improved. 2. Mild right-sided hemiparesis associated with right homonymous hemianopsia concerning for a left cortical stroke. The patient is pending a repeat CAT scan on Friday. 3. Dysphagia secondary to esophageal stricture. Patient is status post EGD with dilation. She has been started clears. We will advance this to pureed diet today. 4. Chronic atrial fibrillation, currently rate-controlled. 5. Recent fall with right hip fracture and right wrist fracture status post surgical intervention. 6. Remote history of lung and esophageal cancer. 7. Uncontrolled hypertension. We will continue titrating patient's medications. 8. Protein calorie malnutrition. Patient continues to be on Clinimix and lipid infusion. We will discontinue this as patient improves in her oral intake. 9. Hypokalemia. We will continue with supplement. 10. Disposition pending rehabilitation placement. cc: Lawson Johnson MD
[2019-10-16] MEDS: MIRALAX PO SCH (09:23)
[2019-10-16] MEDS: MUCINEX PO SCH ×2 (09:24→21:16)
[2019-10-16] MEDS: ZINC SULFATE PO SCH ×2 (09:24→21:16)
[2019-10-16] MEDS: LOPRESSOR PO SCH ×2 (09:24→21:15)
[2019-10-16] MEDS: VITAMIN C PO SCH (09:24)
[2019-10-16] MEDS: ASPIRIN PO SCH (09:24)
[2019-10-16] MEDS: PRINIVIL PO SCH (09:24)
[2019-10-16] MEDS: LOVENOX SUBQ SCH (09:25)
[2019-10-16] MEDS: NORVASC PO SCH ×2 (09:30→21:16)
[2019-10-16] MEDS: ZITHROMAX 500 MG/NS 500 MG/250 ML IVPB IV SCH (16:31)
[2019-10-16] MEDS: CLINIMIX E 4.25%-5% SOLUTION 1,000 ML IV SCH (16:31)
[2019-10-16] MEDS: LIPOSYN 20% 500 ML IV SCH (16:31)
[2019-10-16] MEDS: NS + KCL 20 MEQ 1,000 ML IV SCH (17:33)
[2019-10-16] MEDS: ROCEPHIN 1 GM in NS 50 ML IV SCH (21:12)
[2019-10-17] MEDS: CARAFATE LIQUID PO SCH ×4 (01:44→20:53)
[2019-10-17 05:23] LABS: EOS# 0.01 X1000 (0.0-0.7); EOS% 0.2 % (0.0-10.0); HEMATOCRIT 27.2 % (37.0-47.0); HEMOGLOBIN 8.3 g/dL (12.0-16.0); LYMPH# 0.47 X1000 (1.2-3.4); LYMPH% 8.1 % (20.5-51.1); MCH 28.1 PG (27-31); MCHC 30.5 g/dL (33-37); MCV 92.2 FL (81-99); MONO# 0.44 X1000 (0.11-0.59); MONO% 7.6 % (1.7-9.3); MPV 11.3 FL (7.4-10.4); NEUT# 4.85 X1000 (1.4-6.5); NEUT% 84.1 % (42.2-75.2); PLT 216 X1000 (130-400); RBC 2.95 XMIL (4.2-5.4); RDW 17.6 % (11.5-14.5); WBC 5.77 X1000 (4.8-10.8)
[2019-10-17] MEDS: NS + KCL 20 MEQ 1,000 ML IV SCH (05:33)
[2019-10-17 05:42] LABS: AGAP 9; ALBUMIN 2.7 g/dL (3.5-5.0); ALKALINE PHOSPHATASE 104 U/L (32-104); BUN 9 mg/dL (8-22); CALCIUM 7.6 mg/dL (8.8-10.2); CHLORIDE 97 mmol/L (98-107); COSMO 271; CREATININE 0.3 mg/dL (0.5-0.9); ESTIMATED GFR > 60; GLUCOSE 110 mg/dL (70-104); GOT 23 U/L (10-30); GPT 8 U/L (10-36); MAGNESIUM 1.8 mg/dL (1.5-2.7); POTASSIUM 3.2 mmol/L (3.5-5.1); SODIUM 136 mmol/L (136-145); TCO2 30 mmol/L (25-35); TOTAL BILIRUBIN 0.69 mg/dL (0.20-1.00); TOTAL PROTEIN 5.3 g/dL (6.3-8.3)
[2019-10-17] MEDS ORDERED: KLOR-CON PO ONE (06:22)
[2019-10-17] MEDS: PRILOSEC PO SCH (06:35)
[2019-10-17] MEDS: SYNTHROID PO SCH (06:36)
[2019-10-17] MEDS: NORVASC PO SCH ×2 (08:53→20:54)
[2019-10-17] MEDS: PRINIVIL PO SCH (08:54)
[2019-10-17] MEDS: ASPIRIN PO SCH (08:54)
[2019-10-17] MEDS: LOPRESSOR PO SCH ×2 (08:54→20:54)
[2019-10-17] MEDS: MUCINEX PO SCH ×2 (08:54→20:54)
[2019-10-17] MEDS: VITAMIN C PO SCH (08:54)
[2019-10-17] MEDS: MIRALAX PO SCH (08:55)
[2019-10-17] MEDS: ZINC SULFATE PO SCH ×2 (08:55→20:54)
[2019-10-17] MEDS: LOVENOX SUBQ SCH (08:55)
--- NOTE | 2019-10-17 12:34 | PROGRESS NOTE ---
DATE: 10/17/2019 SUBJECTIVE: This morning, Ms. Ferris refers to be doing well. Denies any new complaints. She says she has been tolerating some of her diet. No documented bowel movement. OBJECTIVE: Vital Signs: Blood pressure is 133/66, pulse of 81, respirations are 14, temperature is 97.9 degrees. General Examination: Ms. Ferris is an 84-year-old, elderly, female. She is in bed. No distress. HEENT: Mucosa is pink and moist. Anicteric. Acyanotic. Neck: Supple. Chest: Clear to auscultation. No crepitations. No rhonchi. Cardiovascular: Irregularly irregular but rate controlled. GI: Abdomen is soft, nontender. Bowel sounds are present but hypoactive. Extremities: No pedal edema. ELECTRIC ARC WELDER: The patient is awake, alert. She is still slightly weak on the left side. She also has a right homonymous hemianopsia. ASSESSMENT: 1. Altered mental status on presentation due to global encephalopathy, improved. 2. Right-sided hemiparesis associated with right homonymous hemianopsia, concerning for left cortical stroke. Initial CT scan was unremarkable. There is a repeat CT scan for tomorrow. 3. Dysphagia secondary to esophageal stricture. Patient is status post esophagogastroduodenoscopy with dilation. She has been tolerating her clears. We are going to advance this. 4. Chronic atrial fibrillation, currently rate controlled. 5. Recent fall with a right hip fracture and a right wrist fracture, status post surgical intervention. 6. Remote history of lung and esophageal cancer. 7. Hypertension, improved. 8. Protein calorie malnutrition. We will continue advancing her diet. The patient will also be started on supplemental Glucerna. 9. Electrolyte abnormality including hypokalemia. We will continue to replace. 10. Disposition pending rehab placement. cc: Lawson Johnson MD
[2019-10-17] MEDS: ZITHROMAX 500 MG/NS 500 MG/250 ML IVPB IV SCH (14:09)
[2019-10-17] MEDS: ROCEPHIN 1 GM in NS 50 ML IV SCH (20:49)
[2019-10-18] MEDS: CARAFATE LIQUID PO SCH ×4 (01:53→22:42)
[2019-10-18 06:02] LABS: BASO# 0.01 X1000 (0.0-0.2); BASO% 0.1 % (0.0-0.8); EOS# 0.01 X1000 (0.0-0.7); EOS% 0.1 % (0.0-10.0); HEMATOCRIT 28.2 % (37.0-47.0); HEMOGLOBIN 8.5 g/dL (12.0-16.0); IMM GRAN# 0.04 X1000 (0.0-0.04); IMM GRAN% 0.6 % (0.0-0.5); LYMPH# 0.49 X1000 (1.2-3.4); LYMPH% 6.8 % (20.5-51.1); MCH 27.8 PG (27-31); MCHC 30.1 g/dL (33-37); MCV 92.2 FL (81-99); MONO# 0.56 X1000 (0.11-0.59); MONO% 7.7 % (1.7-9.3); MPV 11.4 FL (7.4-10.4); NEUT# 6.13 X1000 (1.4-6.5); NEUT% 84.7 % (42.2-75.2); PLT 215 X1000 (130-400); RBC 3.06 XMIL (4.2-5.4); RDW 17.8 % (11.5-14.5); WBC 7.24 X1000 (4.8-10.8)
[2019-10-18 06:23] LABS: AGAP 11; ALB/GLOB RATIO 1.1; ALKALINE PHOSPHATASE 115 U/L (32-104); BUN 8 mg/dL (8-22); CALCIUM 8.4 mg/dL (8.8-10.2); CHLORIDE 97 mmol/L (98-107); COSMO 270; CREATININE 0.3 mg/dL (0.5-0.9); ESTIMATED GFR > 60; GLUCOSE 100 mg/dL (70-104); GOT 21 U/L (10-30); GPT 9 U/L (10-36); MAGNESIUM 1.9 mg/dL (1.5-2.7); POTASSIUM 3.7 mmol/L (3.5-5.1); SODIUM 136 mmol/L (136-145); TCO2 28 mmol/L (25-35); TOTAL BILIRUBIN 1.03 mg/dL (0.20-1.00); TOTAL PROTEIN 5.7 g/dL (6.3-8.3)
[2019-10-18] MEDS: SYNTHROID PO SCH (06:41)
[2019-10-18] MEDS: PRILOSEC PO SCH (06:41)
--- NOTE | 2019-10-18 07:24 | Diag Imaging Result Doc PS360 ---
EXAM: CHEST-PORTABLE INDICATION: dyspnea TECHNIQUE: One view COMPARISON: 10/12/2019 FINDINGS: The lungs are hyperinflated suggesting emphysema, stable. The small left pleural effusion seen previously appears to have decreased somewhat. No new consolidation is identified. Cardiac silhouette is stable. IMPRESSION: Decrease in small left effusion. Essentially stable, otherwise. Electronically signed by Ino Mann 10/18/2019 7:22 AM
--- NOTE | 2019-10-18 08:59 | Diag Imaging Result Doc PS360 ---
EXAM: CT HEAD W/O CONTRAST 10/18/2019 HISTORY: encephalopathy TECHNIQUE: This exam was performed using automated exposure control, adjustment of mA or kV according to patient size, and/or use of iterative reconstruction technique. COMMENT: There are calcifications in the vertebral and basilar arteries. There are calcifications in the internal carotid arteries. There are patchy periventricular white matter lucencies and there is decreased attenuation of the occipital lobe and surrounding temporal and parietal cortex posteriorly on the left. This is a much larger area than the encephalomalacia which was present on the previous study of 10/07/2019 in the posterior left parietal lobe. There is also a lacunar lucency in the posterior limb of the internal capsule on the left which was not as appreciable on the previous study, and there are patchy lucencies present in the cerebellum particularly in the right cerebellar hemisphere which were not appreciable on the previous study. There is no appreciable mass effect and there is no evidence of bleed or abnormal extra-axial fluid collection. The visualized paranasal sinuses are clear. There is some effusion in the right mastoid air cells which was also present at the time the previous study to some extent. IMPRESSION: 1. Acute on chronic infarct in the distribution of the right posterior cerebral artery. 2. Multiple small lacunar infarcts in the cerebellum bilaterally, particularly on the right side. The findings were discussed with Lawson Johnson MD at 10/18/2019 8:57 AM. Electronically signed by Quinten Umaña 10/18/2019 8:57 AM
[2019-10-18] MEDS: ASPIRIN PO SCH (09:25)
[2019-10-18] MEDS: NORVASC PO SCH ×2 (09:25→22:43)
[2019-10-18] MEDS: MUCINEX PO SCH ×2 (09:25→22:43)
[2019-10-18] MEDS: LOPRESSOR PO SCH ×2 (09:25→22:43)
[2019-10-18] MEDS: MIRALAX PO SCH (09:25)
[2019-10-18] MEDS: PRINIVIL PO SCH (09:25)
[2019-10-18] MEDS: VITAMIN C PO SCH (09:25)
[2019-10-18] MEDS: ZINC SULFATE PO SCH ×2 (09:25→22:43)
--- NOTE | 2019-10-18 09:25 | EKG Report ---
Test Performed on : 10/18/2019 09:06:44 AM Test Reason : Afib Blood Pressure : / mmHG Vent. Rate : 097 BPM Atrial Rate : 092 BPM P-R Int : 000 ms QRS Dur : 086 ms QT Int : 356 ms P-R-T Axes : 000 071 -50 degrees QTc Int : 452 ms Atrial fibrillation. with premature ventricular or aberrantly conducted complexes. Moderate voltage criteria for LVH, may be normal variant Anteroseptal infarct , age undetermined ST & T wave abnormality, consider inferior ischemia Abnormal ECG When compared with ECG of October 13, 2019- ST and T wave abnormalities int he lateral leads have improved. Confirmed by Michael Cabrera MD ([id number]) on 10/20/2019 5:55:01 PM
[2019-10-18] MEDS: LOVENOX SUBQ SCH (09:26)
[2019-10-18] MEDS: ZITHROMAX 500 MG/NS 500 MG/250 ML IVPB IV SCH (14:07)
--- NOTE | 2019-10-18 14:13 | GASTROENTEROLOGY PROGRESS NOTE ---
DATE: 10/18/2019 SUBJECTIVE: At the time of my visit, patient was getting up on the bedside commode with assistance from the nurse tech. She did have a family member at the bedside. She states she did not eat good for lunch. She states she did have some coughing. The nurse tech does report slight improvement in eating. OBJECTIVE: Vital Signs: Temperature 97.9 degrees, pulse 84, respirations 16, blood pressure 165/66. General: Patient was awake and alert. She was getting up on the side of the bed to a bedside commode at the time of my visit with help from the nursing surgical services director. LABORATORY: Hematology: WBC 7.24, hemoglobin 8.5, hematocrit 28.2, MCV 92.2, platelets 215. Chemistry: Sodium 136, potassium 3.7, chloride 97, CO2 28. BUN 8, creatinine 0.3, glucose 100. Total bilirubin 1.03, AST 21, ALT 9, alkaline phosphatase 115. ASSESSMENT: 1. Altered mental status has improved. 2. Right-sided hemiparesis. She has a repeat CT scan ordered. 3. Dysphagia. She had esophagogastroduodenoscopy showing gastritis and esophageal stricture with dilation performed. She has had a slight improvement in her dysphagia. 4. Atrial fibrillation. Continue current medications. 5. Recent right hip fracture and right wrist fracture, status post surgery. 6. History of lung cancer and esophageal cancer. 7. Protein-calorie malnutrition. Patient is currently tolerating small amounts of her diet. She has been started on supplemental Glucerna. PLAN: Continue strict antireflux measures and strict aspiration precautions. I have recommend they avoid tough meats and breads, and try mostly soft fruits or vegetables. We will continue to follow and further plans will be made according to her response. Continue proton pump inhibitor. Further plans to be made as needed. I have discussed this case with Dr. Ugalde. Dictated by DEEP Gilbert for Brennan Ugalde MD cc: DEEP Bauman MD
--- NOTE | 2019-10-18 14:51 | PROGRESS NOTE ---
DATE: 10/18/2019 SUBJECTIVE: I have seen and examined Ms. Ferris today. The sister was at the bedside at the time of the encounter. Ms. Ferris refers to be doing well. She says she really has not been eating a whole lot. She has just been biting on her foot. OBJECTIVE: Vital signs: Blood pressure is 165/66, pulse 84, respirations 16, temperature 97.9 degrees. Patient is saturating 94% on 2 L. General: Ms. Ferris is an 84-year-old, elderly, female. She is in bed. No distress. HEENT: Mucosa is pink and moist. Anicteric. Acyanotic. Neck: Supple. Chest: There is good air entry bilaterally. There were no crepitations and no rhonchi. Cardiovascular: Irregularly irregular but rate controlled. No murmurs. GI: Abdomen is soft, nontender. Bowel sounds present. Extremities: No pedal edema. 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 She is weaker on the right side of her body associated with a right homonymous hemianopsia. LABORATORY DATA: WBC is 7.34, hemoglobin is 8.5, platelet count of 215,000. Chemistry is also reviewed. Potassium has been normalized. Rest of chemistry is completely normal. Sputum culture so far has been unremarkable. IMAGING STUDIES: A repeat CT scan of the head today shows an acute on chronic infarct in the distribution of the right posterior cerebellar artery. There are also multiple small lacunar infarcts in the cerebellum bilaterally, particularly in the right side. ASSESSMENT: 1. Altered mental status on presentation, improved. 2. Right-sided hemiparesis associated with right homonymous hemianopsia secondary to a left posterior cerebral artery acute/subacute stroke. CT scan report has been noted. Will be pending further recommendations from Neurology. 3. Dysphagia secondary to a combination of esophageal stricture and possible stroke. The patient is status post EGD with dilation. 4. Chronic atrial fibrillation. Currently rate controlled. The patient was not on any blood thinner. According to the sister, this has been stop a couple years ago, but she is not sure which one she was on. Ms. Ferris herself is not able to give me any details. We have consulted Cardiology as well as Neurology on this. 5. Recent fall with a right hip fracture and a right wrist fracture, status post surgical intervention. 6. Remote history of lung and esophageal cancer. 7. Hypertension. We will continue with medications for now. However, I think it is reasonable to allow for some permissive hypertension, but on the long-term, the blood pressure will need to be very well controlled. 8. Protein calorie malnutrition. The patient is not eating very well. She has been placed on nutritional supplement. 9. Electrolyte abnormality, improved. 10. Bilateral carotid atherosclerotic disease. So far, the ultrasound of the carotid does not seem to show hemodynamically significant lesions. PLAN: So in general, I think Ms. Ferris is clinically stable. Her electrolytes have been replaced. She is still with the right-sided hemiparesis with a homonymous hemianopsia. A repeat CT scan shows more findings than the CAT scan on admission. It is concerning if Ms. Ferris has been embolizing since she is in atrial fibrillation without any blood thinners. Atrial fibrillation is rate controlled on metoprolol. We will be waiting on Cardiology evaluation today. DISPOSITION: To [facility] once the patient is stable, hopefully tomorrow. cc: Lawson Johnson MD MTDD
--- NOTE | 2019-10-18 17:35 | CARDIOLOGY CONSULTATION ---
DATE: 10/18/2019 REASON FOR CONSULTATION: Cardiology was consulted for evaluation of anticoagulation therapy. HISTORY OF PRESENT ILLNESS: Ms. Ferris is an 84-year-old lady who has history of chronic atrial fibrillation, permanent pacemaker implantation. She has had old CVA located in the left frontal and parietal lobe. She fell on 09/26/2019 had the right distal radius fracture and right hip fracture which was surgically repaired. Following that, anticoagulation was stopped. She subsequently underwent esophageal stretching as well. 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 No recurrence of cancer. She went to [facility] and she was noted to be, per staff, unconscious for about 10 minutes. They called an ambulance. When she came to the emergency room, she was alert, oriented. Neurology has been asked to evaluate the patient. She underwent a CT scan of the head which did not reveal any new CVA. From what was discussed with the patient's family, the patient's family says that she sounds congested. They did not notice any weakness of any particular side to suggest a stroke; however, she has had generalized weakness. There are no palpitations. There is no kaci syncope at the present time. The etiology of the unconsciousness I have no quantification of that. REVIEW OF SYSTEM: A 14-point review of systems was done:Gastrointestinal System: There is no history of nausea, vomiting, diarrhea. There is no history of hematemesis or melena. Central nervous system: Above. Genitourinary System: There is no dysuria. Respiratory System: She has some congestion. PAST MEDICAL HISTORY: 1. 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 2. Esophageal cancer. 3. Skin cancer. 4. Adenocarcinoma of the lung status post left thoracotomy in 2008. 5. History of anticoagulation therapy in the past. 6. Permanent pacemaker implantation, status post [employer] pacemaker in 2008. 7. Atrial fibrillation. 8. History of confusion in the past. 9. Other surgeries include right hemiarthroplasty. 10. Open reduction internal fixation of the right wrist. 11. Hysterectomy. 12. Left foot surgery. 13. Stent placement to left carotid in 2017. HOME MEDICATIONS: Include levothyroxine 50, metoprolol 50 b.i.d., lisinopril 20, oxycodone, guaifenesin, zinc and enteric-coated aspirin. Currently, she is on Levaquin and Zithromax. PHYSICAL EXAMINATION: Vital Signs: Blood pressure was 165/66. Cardiovascular: First and second heart sounds were heard. There was systolic murmur. Respiratory: Scattered crackles noted. Abdomen: Soft, nontender. There was no guarding or rigidity. Bowel sounds were heard. Central nervous system: Patient was awake. Detailed central nervous system examination not performed. ASSESSMENT AND PLAN: Ms. Sandra Ferris is an 84-year-old, lady with history of atrial fibrillation, permanent pacemaker implantation, hypertension, adenocarcinoma of the lung, carcinoma of the esophagus. She is admitted with confusion, questionable unconsciousness for 10 minutes and has chest congestion as well. She had a fall and underwent a right pneumothorax resolution, right distal radius fracture and hip fracture surgically repaired. This was in September 2019. RECOMMENDATIONS: 1. Given her chronic atrial fibrillation would recommend anticoagulation therapy for elevated CHADS2-VASc score of Eliquis 2.5 mg twice daily. In the past, she has been on anticoagulation therapy. However, that was stopped recently, because of her fall, fractures and requiring esophageal dilatation recently. 2. We will get an echocardiogram to assess cardiac and valvular function. 3. Her lungs sound has scattered crepitation. She has been started on antibiotics. We will get a CT scan without contrast to assess and to make sure there is no ongoing lung pathology. Chest x-ray was unremarkable. 4. We will also get an echocardiogram to assess cardiac and valvular function. 5. Hypertension. Restart her home medications. Thank you for the consult. We will follow hospital course. cc: Reyes Pandey MD
--- NOTE | 2019-10-18 18:19 | Diag Imaging Result Doc PS360 ---
EXAM: CT THORAX W/O CONTRAST HISTORY: Dyspnea, evaluation for pneumonia TECHNIQUE: CT chest without contrast COMPARISON: 09/26/2019 FINDINGS: No definite pneumothorax on the current exam. Trace right pleural fluid. Small left pleural effusion. The heart remains markedly enlarged. Worsening multinodular infiltrates in the mid and lower lungs. Severe atherosclerosis. Stable ascending aorta. IMPRESSION: 1.Worsening pneumonia 2.No pneumothorax 3.Cardiomegaly with severe atherosclerosis This exam was performed using automated exposure control, adjustment of mA or kV according to patient size, and/or use of iterative reconstruction technique. Electronically signed by Marek Judd 10/18/2019 6:17 PM
[2019-10-18] MEDS: NS + KCL 20 MEQ 1,000 ML IV SCH ×2 (18:22→22:41)
[2019-10-18] MEDS: FLAGYL 250 MG/NS 250 MG/50 ML IVPB IV SCH (20:59)
[2019-10-18] MEDS: ROCEPHIN 1 GM in NS 50 ML IV SCH (21:19)
[2019-10-18] MEDS: ELIQUIS PO SCH (22:43)
[2019-10-19] MEDS: NORVASC PO SCH ×3 (01:21→20:11)
[2019-10-19] MEDS: LOPRESSOR PO SCH ×3 (01:21→20:11)
[2019-10-19] MEDS: FLAGYL 250 MG/NS 250 MG/50 ML IVPB IV SCH ×4 (01:58→19:42)
[2019-10-19] MEDS: CARAFATE LIQUID PO SCH ×4 (02:06→20:11)
[2019-10-19 05:12] LABS: BASO# 0.01 X1000 (0.0-0.2); BASO% 0.1 % (0.0-0.8); EOS# 0.01 X1000 (0.0-0.7); EOS% 0.1 % (0.0-10.0); HEMATOCRIT 28.2 % (37.0-47.0); HEMOGLOBIN 8.6 g/dL (12.0-16.0); IMM GRAN# 0.02 X1000 (0.0-0.04); IMM GRAN% 0.3 % (0.0-0.5); LYMPH# 0.53 X1000 (1.2-3.4); LYMPH% 7.4 % (20.5-51.1); MCH 28.1 PG (27-31); MCHC 30.5 g/dL (33-37); MCV 92.2 FL (81-99); MONO# 0.51 X1000 (0.11-0.59); MONO% 7.1 % (1.7-9.3); MPV 11.4 FL (7.4-10.4); PLT 226 X1000 (130-400); RBC 3.06 XMIL (4.2-5.4); RDW 17.9 % (11.5-14.5); WBC 7.18 X1000 (4.8-10.8)
[2019-10-19 05:42] LABS: AGAP 11; ALB/GLOB RATIO 1.1; ALBUMIN 2.9 g/dL (3.5-5.0); ALKALINE PHOSPHATASE 115 U/L (32-104); BUN 10 mg/dL (8-22); CALCIUM 8.3 mg/dL (8.8-10.2); CHLORIDE 99 mmol/L (98-107); COSMO 275; CREATININE 0.3 mg/dL (0.5-0.9); ESTIMATED GFR > 60; GLUCOSE 95 mg/dL (70-104); GOT 18 U/L (10-30); GPT 7 U/L (10-36); MAGNESIUM 1.8 mg/dL (1.5-2.7); POTASSIUM 3.3 mmol/L (3.5-5.1); SODIUM 138 mmol/L (136-145); TCO2 28 mmol/L (25-35); TOTAL BILIRUBIN 0.89 mg/dL (0.20-1.00); TOTAL PROTEIN 5.6 g/dL (6.3-8.3)
[2019-10-19] MEDS: SYNTHROID PO SCH (06:40)
[2019-10-19] MEDS: PRILOSEC PO SCH (06:40)
[2019-10-19] MEDS: MUCINEX PO SCH ×2 (08:22→20:11)
[2019-10-19] MEDS: VITAMIN C PO SCH (08:22)
[2019-10-19] MEDS: ZINC SULFATE PO SCH ×2 (08:22→20:12)
[2019-10-19] MEDS: ASPIRIN PO SCH (08:23)
[2019-10-19] MEDS: PRINIVIL PO SCH (08:23)
[2019-10-19] MEDS: MIRALAX PO SCH (08:23)
[2019-10-19] MEDS: ELIQUIS PO SCH ×2 (08:23→20:11)
--- NOTE | 2019-10-19 14:06 | PROGRESS NOTE ---
DATE: 10/19/2019 SUBJECTIVE: I have seen and examined Ms. Ferris today. There was no family member at the bedside at the time of the encounter. Ms. Ferris refers to be doing well. OBJECTIVE: Vital signs: Blood pressure is 150/57, pulse of 88, respirations 16, temperature 97.7 degrees. The patient is saturating 98% on nasal cannula. General: Ms. Ferris is an 84-year-old elderly female. She is in bed. No distress. Mucosa is pink and moist. Anicteric. Acyanotic. Neck: Supple. Respiratory System: Air entry was bilaterally reduced. There is a few crackles in the posterior lung ochoa. Cardiovascular: Irregularly irregular but rate controlled. There was no murmurs. There is a pacemaker generator pocket on the left anterior chest wall. Gastrointestinal: Abdomen is soft, nontender. Bowel sounds present. Extremities: No pedal edema. Central Nervous System: Patient is awake, alert, oriented. She is weak on the right side of her body associated with a right homonymous hemianopsia. LABORATORY DATA: Reviewed. Hemoglobin is 8.6, potassium is 3.3. A CT scan of the chest yesterday continues to show worsening pneumonia, cardiomegaly with severe atherosclerosis. ASSESSMENT: 1. Altered mental status on presentation improved. 2. Right side hemiparesis associated with right homonymous and hemianopsia secondary to the left posterior cerebral artery acute/subacute stroke. 3. Dysphagia secondary to combination of esophageal stricture and functional cause from stroke. The patient is status post EGD with dilation. However, a CT scan yesterday continues to show pneumonia which is concerning for aspiration. 4. Chronic atrial fibrillation, currently rate controlled. Patient was evaluated by Cardiology yesterday and they have recommended to start her on age recommended Eliquis therapy. 5. Recent fall with right hip fracture and right wrist fracture status post surgical intervention. 6. Remote history of lung and esophageal cancer. 7. Hypertension controlled. 8. Bilateral carotid atherosclerosis noted. There was no indication of hemodynamically significant lesions. 9. Aspiration pneumonitis. Patient is on antibiotics. We are going to repeat her swallow evaluation again. If she continues to fail, we will recommend GI to see her for possible PEG tube placement. cc: Lawson Johnson MD
--- NOTE | 2019-10-19 14:10 | Diag Imaging Result Doc PS360 ---
EXAM: BA SWALLOW W/VIDEO SPEECH THER 10/19/2019 HISTORY: aspirations TECHNIQUE: 55 images, two mGy, 16 seconds fluoroscopy time. COMMENT: There is trace aspiration on all swallows. This is similar to the previous examination of 10/13/2019. IMPRESSION: Aspiration. Electronically signed by Quinten Umaña 10/19/2019 2:08 PM
[2019-10-19] MEDS: NS + KCL 20 MEQ 1,000 ML IV SCH (15:02)
--- NOTE | 2019-10-19 15:04 | GASTROENTEROLOGY PROGRESS NOTE ---
DATE: 10/19/2019 SUBJECTIVE: Patient was asleep at the time of my visit. There was no family at the bedside. She did arouse with stimulation. She followed my commands. I could not understand all of what she said in response to my questions. Per nurse, she has had some coughing and choking with some of her medications and food. She is only eating bites. OBJECTIVE: Vital Signs: Temperature 97.7 degrees, pulse 88, respirations 16, blood pressure 150/57. Abdomen: Soft, nontender. Positive bowel sounds. LABORATORY: Hematology 7.18, hemoglobin 8.6, hematocrit 28.2, MCV 92.2, platelets 226,000. Chemistry: Sodium 138, potassium 3.3, chloride 99, CO2 28, BUN 10, creatinine 0.3, glucose 95, total bilirubin 0.89, AST 18, ALT 7, alkaline phosphatase is 115. Recent CT scan of the chest showed worsening pneumonia, no pneumothorax, cardiomegaly with severe atherosclerosis. She had a repeat head CT yesterday that showed acute on chronic infarct in the distribution of the right posterior cerebral artery. Also multiple small lacunar infarcts in the cerebellum bilaterally, more on the right side. The patient has also been seen by Cardiology for evaluation of anticoagulation therapy. I believe they will be getting an echocardiogram and a CT of the chest was ordered. ASSESSMENT: 1. Altered mental status has improved. 2. Dysphagia. Patient had EGD showing gastritis. Esophageal stricture was dilated. She is having some problems with coughing or choking when eating or taking her medications. Recommend strict antireflux measures and aspiration precautions. 3. Atrial fibrillation. 4. History of lung cancer and esophageal cancer. 5. Recent hip fracture, right wrist fracture. PLAN: Continue current management. We will continue to follow. If her dysphagia or eating does not improve, she may require feeding tube. Follow recommendations of cardiology regarding anticoagulants. We will continue to follow. Further plans will be made according to her progress. I have discussed this case with Dr. Ugalde. Dictated by DEEP Gilbert for Brennan Ugalde MD cc: DEEP Bauman MD
[2019-10-19] MEDS: ROCEPHIN 1 GM in NS 50 ML IV SCH (20:06)
[2019-10-20] MEDS: NS + KCL 20 MEQ 1,000 ML IV SCH ×2 (01:03→14:46)
[2019-10-20] MEDS: CARAFATE LIQUID PO SCH ×4 (02:03→22:48)
[2019-10-20] MEDS: FLAGYL 250 MG/NS 250 MG/50 ML IVPB IV SCH ×4 (02:04→20:12)
[2019-10-20 05:46] LABS: HEMATOCRIT 28.5 % (37.0-47.0); HEMOGLOBIN 8.9 g/dL (12.0-16.0); MCHC 31.2 g/dL (33-37); MCV 92.8 FL (81-99); RBC 3.07 XMIL (4.2-5.4); RDW 17.6 % (11.5-14.5); WBC 5.99 X1000 (4.8-10.8)
[2019-10-20 06:28] LABS: AGAP 17; ALB/GLOB RATIO 0.9; ALBUMIN 2.7 g/dL (3.5-5.0); ALKALINE PHOSPHATASE 114 U/L (32-104); BUN 15 mg/dL (8-22); CALCIUM 8.2 mg/dL (8.8-10.2); CHLORIDE 98 mmol/L (98-107); COSMO 281; CREATININE 0.3 mg/dL (0.5-0.9); ESTIMATED GFR > 60; GLUCOSE 75 mg/dL (70-104); GOT 16 U/L (10-30); GPT 7 U/L (10-36); POTASSIUM 3.3 mmol/L (3.5-5.1); SODIUM 141 mmol/L (136-145); TCO2 26 mmol/L (25-35); TOTAL BILIRUBIN 0.87 mg/dL (0.20-1.00); TOTAL PROTEIN 5.8 g/dL (6.3-8.3)
[2019-10-20] MEDS: PRILOSEC PO SCH (06:29)
[2019-10-20] MEDS: SYNTHROID PO SCH (06:30)
--- NOTE | 2019-10-20 07:05 | Diag Imaging Result Doc PS360 ---
EXAM: CHEST-PORTABLE 10/20/2019 HISTORY: dyspnea TECHNIQUE: AP portable at 0616 COMMENT: There is dense opacification of the left lower lobe behind the heart. The heart size is enlarged. There is slightly increased interstitial opacity in the lung bases. This has not changed significantly since the previous study of 10/18/2019. IMPRESSION: Left lower lobe atelectasis versus pneumonia. Mild pulmonary edema. Electronically signed by Quinten Umaña 10/20/2019 7:02 AM
--- NOTE | 2019-10-20 10:14 | PROGRESS NOTE ---
DATE: 10/20/2019 SUBJECTIVE: I have seen and examined Ms. Ferris today. Ms. Ferris refers to be doing well. She denies any new complaints. [id number] was at the bedside at the time of the encounter. OBJECTIVE: Vital Signs: Blood pressure is 132/78, pulse of 105, respirations 18, temperature 97.8 degrees. General: Ms. Ferris is an 84-year-old, elderly, female. She is in bed. No distress. HEENT: Mucosa is pink and moist. Anicteric. Acyanotic. Neck: Supple. Chest: Good air entry bilaterally. There are crepitations in posterior lung ochoa. Cardiovascular: Irregularly irregular, but no murmurs. There is a pacemaker generator pocket on the left anterior chest wall. GI: Abdomen is soft, nontender. Bowel sounds are present. Extremities: No pedal edema. DIET AIDE: The patient is awake, alert, oriented. She remains with a right- sided hemiparesis and right homonymous hemianopsia. Skin: The patient's skin has multiple keratosis. LABORATORY DATA: Laboratory has been reviewed. Hemoglobin is 8.9. Rest of CBC is unremarkable. Chemistry is also unremarkable, except for a potassium of 3.3. ASSESSMENT: 1. Altered mental status on presentation, improved. The patient is back to baseline. 2. Right-sided hemiparesis associated with right homonymous hemianopsia secondary to left posterior cerebral artery acute/subacute stroke. Will continue to monitor. Neurology is on board. 3. Dysphagia secondary to a combination of esophageal stricture and functional cause from stroke. The patient is status post esophagogastroduodenoscopy with dilation. However, both CT scan and repeat swallow evaluation continue to show aspiration, so she will be pending a percutaneous endoscopic gastrostomy tube placement. 4. Chronic atrial fibrillation, currently rate controlled. Cardiology is on board. 5. Recent fall with right hip fracture and right wrist fracture, status post surgical intervention. 6. Remote history of lung and esophageal cancer. 7. Hypertension, controlled. 8. Bilateral carotid atherosclerosis noted on imaging, but no indication of hemodynamically significant lesions. Continue with statin. 9. Aspiration pneumonitis. The patient is on antimicrobial therapy. Will continue to observe aspiration precautions, and the patient will remain nothing by mouth. In general, Ms. Ferris is clinically stable. She continues to aspirate per the recent swallow evaluation done up to yesterday. She has been kept nothing by mouth. We are going to start her on Clinimix with lipid infusion for today. We are going to withhold her Eliquis for today in anticipation of surgery tomorrow. I have discussed the findings and the plan with Ms. Ferris and her [id number], who was at the bedside at the time of the encounter. cc: Lawson Johnson MD MTDD
[2019-10-20] MEDS: ZINC SULFATE PO SCH ×2 (10:25→22:48)
[2019-10-20] MEDS: ASPIRIN PO SCH (10:25)
[2019-10-20] MEDS: ELIQUIS PO SCH (10:25)
[2019-10-20] MEDS: MIRALAX PO SCH (10:26)
[2019-10-20] MEDS: LOPRESSOR PO SCH ×2 (10:26→22:49)
[2019-10-20] MEDS: MUCINEX PO SCH ×2 (10:26→22:49)
[2019-10-20] MEDS: NORVASC PO SCH ×2 (10:26→22:48)
[2019-10-20] MEDS: VITAMIN C PO SCH (10:27)
[2019-10-20] MEDS: PRINIVIL PO SCH (10:27)
[2019-10-20] MEDS: LIPOSYN 20% 250 ML IV SCH (10:39)
[2019-10-20] MEDS: CLINIMIX E 4.25%-5% SOLUTION 1,000 ML IV SCH (10:39)
--- NOTE | 2019-10-20 18:37 | GASTROENTEROLOGY PROGRESS NOTE ---
DATE: 10/20/2019 SUBJECTIVE: Patient was awake. She was oriented. She was able to answer some of my questions. There is no family at the bedside. Recent modified barium swallow results reviewed that are showing significant aspiration. The patient has been held NPO. The patient's Eliquis has been held in anticipation for PEG tube placement. OBJECTIVE: Vital Signs: Temperature 97.9 degrees, pulse 122, respirations 18, blood pressure 149/77. General: Patient was awake. She did have a cough. Respiratory congestion noted. Abdomen: Soft, nontender. LABORATORY: Hematology: WBC 5.99, hemoglobin 8.9, hematocrit 28.5, MCV 92.8, platelets 240,000. Chemistry: Sodium 141, potassium 3.3, chloride 98, BUN 15, creatinine 0.3, glucose 75, calcium 8.2, total bilirubin 0.87, AST 16, ALT 7, alkaline phosphatase 114. ASSESSMENT AND PLAN: 1. Altered mental status has improved. Still difficult to understand some of the things she is saying. 2. Right-sided hemiparesis. 3. Dysphagia. Patient has had EGD since admission with dilation performed. She also had some gastritis noted. Continue proton pump inhibitors. 4. Aspiration pneumonia. Patient is not tolerating oral food. She is getting choked. Modified barium swallow shows significant aspiration. We will proceed with EGD and PEG tube placement. Planned for 10/21/2019. 5. History of lung cancer and esophageal cancer, hypertension, atherosclerosis. I have discussed the plan with the patient. I have tried to call the son with no answer. I have left a message. Further plans to be made as needed. Plan for EGD, PEG tube placement tomorrow. I believe Dr. Johnson has already spoken with maybe the [id number]. I have discussed this case with Dr. Ugalde. I did go back to see patient later and spoke with one of the her sons. Discussed PEG placement along with benefits and risks. He will speak to his other siblings about the procedure. Dictated by DEEP Gilbert for Brennan Ugalde MD cc: DEEP Bauman MD [facility]
[2019-10-20] MEDS: ROCEPHIN 1 GM in NS 50 ML IV SCH (20:12)
[2019-10-20] MEDS ORDERED: LOPRESSOR IV PRN (23:16)
[2019-10-20 23:54] LABS: MAGNESIUM 1.7 mg/dL (1.5-2.7)
[2019-10-21] MEDS ORDERED: POTASSIUM CHLORIDE 20 MEQ/SWI 20 MEQ/100 ML IVPB IV ONE (00:24)
--- NOTE | 2019-10-21 02:37 | EKG Report ---
Test Performed on : 10/20/2019 11:24:25 PM Test Reason : heart rate Blood Pressure : / mmHG Vent. Rate : 128 BPM Atrial Rate : 131 BPM P-R Int : 000 ms QRS Dur : 082 ms QT Int : 280 ms P-R-T Axes : 000 018 239 degrees QTc Int : 408 ms Atrial fibrillation. with rapid ventricular response. with premature ventricular or aberrantly conduc ezekiel complexes. Minimal voltage criteria for LVH, may be normal variant Anteroseptal infarct (cited on or before 17-FEB-2017) Marked ST abnormality, possible inferolateral subendocardial injury Abnormal ECG When compared with ECG of 18-OCT-2019 09:06, Non-specific change in ST segment in Anterior leads ST more depressed in Lateral leads T wave inversion more evident in Lateral leads Confirmed by Michael Cabrera MD ([id number]) on 10/21/2019 8:12:46 PM
[2019-10-21] MEDS: CARAFATE LIQUID PO SCH ×4 (04:08→22:04)
[2019-10-21] MEDS: FLAGYL 250 MG/NS 250 MG/50 ML IVPB IV SCH ×4 (04:09→22:03)
[2019-10-21] MEDS: CLINIMIX E 4.25%-5% SOLUTION 1,000 ML IV SCH (06:33)
[2019-10-21] MEDS: NS + KCL 20 MEQ 1,000 ML IV SCH (09:53)
[2019-10-21] MEDS: LIPOSYN 20% 250 ML IV SCH (09:55)
--- NOTE | 2019-10-21 13:08 | PROGRESS NOTE ---
DATE: 10/21/2019 SUBJECTIVE: I have seen and examined Ms. Ferris. Ms. Ferris refers to be doing fair. No new complaints. She had about 5 family members at the bedside, including the son. OBJECTIVE: Vital Signs: Blood pressure is 169/79, pulse of 115, temperature is 97.7 degrees, respirations 22, saturation is 98 on 2 L. General: Ms. Ferris is an 84-year-old, elderly, female. She is in bed. No distress. HEENT: Mucosa is pink and moist. Anicteric. Acyanotic. Neck: Supple. Respiratory: There is good air entry bilaterally. Few crackles posteriorly. Cardiovascular: Irregularly irregular, but no murmurs. There is a generator pocket on the left anterior chest wall for a pacemaker. GI: Abdomen is soft, nontender. Bowel sounds present. Extremities: No pedal edema. Distal pulses present. GENERAL CONTRACTOR: The patient is awake, alert, oriented. She still remains with mild right-sided hemiparesis with right homonymous hemianopsia. Skin: Multiple keratosis. LABORATORY DATA: None for this morning. ASSESSMENT: 1. Altered mental status on presentation, improved. 2. Right-sided hemiparesis associated with right homonymous hemianopsia secondary to left posterior cerebral artery acute/subacute stroke. Will continue to monitor. Neurology is on board. The patient continues to show some improvement on the weakness. 3. Dysphagia secondary to a combination of esophageal stricture and functional cause from stroke. The patient underwent esophagogastroduodenoscopy with dilation. However, her swallow evaluation continues to show aspiration, so she is getting a percutaneous endoscopic gastrostomy tube today. 4. Chronic atrial fibrillation. The patient is rate controlled. Cardiology is on board. 5. Recent history of lung and esophageal cancer. 6. Hypertension. 7. Bilateral carotid atherosclerosis with no significant hemodynamic lesions. 8. Aspiration pneumonitis. The patient is on antimicrobial therapy. Will continue to observe aspiration precautions, and the patient will undergo percutaneous endoscopic gastrostomy tube placement today. 9. Disposition. Plan to discharge the patient back to [facility] once she is tolerating her tube feedings. cc: Lawson Johnson MD
[2019-10-21] MEDS ORDERED: XYLOCAINE-MPF 2% ONE (13:27)
[2019-10-21] MEDS ORDERED: DIPRIVAN 1% ONE (13:27)
--- NOTE | 2019-10-21 13:58 | ENDOSCOPY OPERATIVE NOTE ---
[facility] ENDOSCOPY OPERATIVE NOTE , EGD WITH PEG PROCEDURE REPORT EXAM DATE: 10/21/2019 PATIENT NAME: Sandra Ferris MR #: [id number] BIRTHDATE: 1935 ATTENDING: Brennan Ugalde MD STATUS: inpatient DEMAND MANAGER: Wood Baker and Alley Browning INDICATIONS: The patient is a 84 yr old female here for an EGD with PEG due to dysphagia, pharyngeal -esophageal and Poor PO intake, weight loss and aspiration pneumonia.. PROCEDURE PERFORMED: EGD w/ percutaneous gastrostomy tube placement MEDICATIONS: Per Anesthesia TOPICAL ANESTHETIC: none CONSENT: The patient understands the risks and benefits of the procedure and understands that these r isks include, but are not limited to: sedation, allergic reaction, infection, perforation and/or bleeding. Alternative means of evaluation and treatment include, among others: physical exam, x-rays, and/or surgical intervention. The patient elects to proceed with this endoscopic procedure. HISTORY AND PHYSICAL: 10/21/2019 DESCRIPTION OF PROCEDURE: During pre-op preparation period all mechanical and medical equipment was c hecked for proper function. Hand hygiene and appropriate measures for infection prevention was taken. After the risks, benefits and alternatives of the procedure were thoroughly explained, Informed consent was verified, confirmed and timeout was successfully executed by the treatment team. The patient was anesthetized with topical anesthesia and the [id number] ([id number]) endoscope was introduced through the mouth and advanced to the second portion of the duoden um. The instrument was slowly withdrawn as the mucosa was fully examined. ESOPHAGUS: There was a short benign appearing and mild stricture. The stricture was traversable. T he esophagus was otherwise normal. STOMACH: Scar from previous gastrostomy. The mucosa of the stomach appeared normal. DUODENUM: The duodenal mucosa showed no abnormalities. The stomach was then inflated with air, and by a combination of transillumination and manual palpatio n, the site for the gastrostomy tube placement was selected and marked on the anterior abdominal wall. The skin of the a nterior abdomen was surgically prepped and draped with sterile towels. Utilizing strict sterile technique, the selected site was then anesthetized with 1% xylocaine by inje ction into the skin and subcutaneous tissue. A 1 cm incision was made through the skin and subcutaneous tissue, and the needle/cannula assembly was then passed through the abdominal wall and through the anterior wall of the stomach, yesenia ntaining visualization with the endoscope. A snare device previously placed through the instrument channel wa s then opened and placed around the cannula, the needle was removed, and the insertion wire was passed through the kemi supriya and into the stomach lumen. The snare was then loosened from the cannula, and repositioned to snare the insertion wire. The snare was then pulled up to the endoscope distal tip, and the scope was then withdrawn bringing with it the snare and insertion wire. The insertion wire was then released from the snare, and then loop-attached to the [employer] 24 Fr gastrostomy tube. Using the "pull technique", the G-tube was then pulled into place by traction on the insertion wire a t the abdominal wall end. The G-tube insertion site was then cleansed once again, and the external bolster was placed over the tube to secure it to the abdominal wall. A sterile dressing was then applied, and the procedure term inated. Retroflexion was performed in the stomach and revealed no abnormalities. The gastroscope was then sl owly withdrawn and removed. ADVERSE EVENT: There were no complications. IMPRESSIONS: 1. There was a short stricture 2. The esophagus was otherwise normal 3. Scar from previous gastrostomy 4. The mucosa of the stomach appeared normal 5. The duodenal mucosa showed no abnormalities RECOMMENDATIONS: 1. Resume pre-procedure medications 2. Transfer to floor REPEAT EXAM: Brennan Ugalde MD eSigned: Brennan Ugalde MD 10/21/2019 1:57 PM cc: CPT CODES: 65838 Upper gastrointestinal endoscopy including esophagus, stomach, and either the du odenum and/or jejunum as appropriate; with directed placement of percutaneous gastrostomy tube ICD CODES: 787.20 Dysphagia,unspecified 530.3 Stricture and stenosis of esophagus The ICD and CPT codes recommended by this software are interpretations from the data that the [facility] staff has captured with the software. The verification of the translation of this report to the ICD and CPT co zev and modifiers is the sole responsibility of the health care institution and practicing physician where this report was generated. [employer] will not be held responsible for the validity of the ICD and CPT codes i ncluded on this report. [employer] assumes no liability for data contained or not contained herein. CPT is a registered tra demark of [employer]. PATIENT NAME: Sandra Ferris MR#: [id number]
[2019-10-21] MEDS: PRILOSEC PO SCH (14:45)
[2019-10-21] MEDS: ZINC SULFATE PO SCH ×2 (14:45→22:04)
[2019-10-21] MEDS: NORVASC PO SCH ×2 (14:46→22:28)
[2019-10-21] MEDS: VITAMIN C PO SCH (14:46)
[2019-10-21] MEDS: PRINIVIL PO SCH (14:46)
[2019-10-21] MEDS: MUCINEX PO SCH ×2 (14:46→22:04)
[2019-10-21] MEDS: ASPIRIN PO SCH (14:47)
[2019-10-21] MEDS: MIRALAX PO SCH (14:47)
[2019-10-21] MEDS: LOPRESSOR PO SCH ×2 (14:47→22:04)
[2019-10-21] MEDS: SYNTHROID PO SCH (14:48)
[2019-10-21] MEDS: ROCEPHIN 1 GM in NS 50 ML IV SCH (22:04)
[2019-10-21] MEDS: ELIQUIS PO SCH (22:28)
[2019-10-22] MEDS: CARAFATE LIQUID PO SCH ×4 (02:15→20:07)
[2019-10-22] MEDS: CLINIMIX E 4.25%-5% SOLUTION 1,000 ML IV SCH (03:00)
[2019-10-22] MEDS: FLAGYL 250 MG/NS 250 MG/50 ML IVPB IV SCH ×4 (04:14→22:46)
[2019-10-22 05:29] LABS: HEMATOCRIT 30.3 % (37.0-47.0); HEMOGLOBIN 9.3 g/dL (12.0-16.0); MCHC 30.7 g/dL (33-37); MCV 91.3 FL (81-99); MPV 10.8 FL (7.4-10.4); RBC 3.32 XMIL (4.2-5.4); RDW 17.3 % (11.5-14.5); WBC 7.97 X1000 (4.8-10.8)
[2019-10-22 05:53] LABS: AGAP 11; ALBUMIN 2.9 g/dL (3.5-5.0); BUN 17 mg/dL (8-22); CALCIUM 8.4 mg/dL (8.8-10.2); CHLORIDE 98 mmol/L (98-107); COSMO 279; CREATININE 0.3 mg/dL (0.5-0.9); ESTIMATED GFR > 60; GLUCOSE 134 mg/dL (70-104); PHOSPHORUS 2.1 mg/dL (2.7-4.5); POTASSIUM 3.5 mmol/L (3.5-5.1); SODIUM 138 mmol/L (136-145); TCO2 29 mmol/L (25-35)
[2019-10-22] MEDS: SYNTHROID PO SCH (06:18)
[2019-10-22] MEDS: PRILOSEC ORAL SUSPENSION PO SCH (06:19)
--- NOTE | 2019-10-22 07:08 | Diag Imaging Result Doc PS360 ---
EXAM: CHEST-PORTABLE HISTORY: dyspnea TECHNIQUE: Single view COMPARISON: 10/20/2019 FINDINGS: The heart is enlarged. There is a small left pleural effusion as well as left basilar atelectasis and/or infiltrates. Mild vascular distention. There are also infiltrates in the lower right lung. No change in the left-sided pacemaker. IMPRESSION: Mild interval worsening Electronically signed by Marek Judd 10/22/2019 7:06 AM
[2019-10-22] MEDS: ZINC SULFATE PO SCH ×2 (08:48→21:21)
[2019-10-22] MEDS: PRINIVIL PO SCH (08:48)
[2019-10-22] MEDS: MUCINEX PO SCH ×2 (08:48→21:21)
[2019-10-22] MEDS: MIRALAX PO SCH (08:48)
[2019-10-22] MEDS: ASPIRIN PO SCH (08:48)
[2019-10-22] MEDS: NORVASC PO SCH ×2 (08:49→21:22)
[2019-10-22] MEDS: VITAMIN C PO SCH (08:49)
[2019-10-22] MEDS: LOPRESSOR PO SCH ×2 (10:00→21:22)
--- NOTE | 2019-10-22 10:12 | Diag Imaging Result Doc PS360 ---
EXAM: CHEST-PORTABLE HISTORY: vomiting after tube feeding TECHNIQUE: Single view COMPARISON: 10/22/2019 at 6:28 AM FINDINGS: The appearance of the chest is unchanged compared to film taken earlier. IMPRESSION: Stable chest Electronically signed by Marek Judd 10/22/2019 10:09 AM
[2019-10-22] MEDS: ELIQUIS PO SCH ×2 (11:22→21:21)
[2019-10-22] MEDS ORDERED: MILK OF MAGNESIA PO ONE (12:27)
[2019-10-22] MEDS ORDERED: FLEET ENEMA PR ONE (13:24)
--- NOTE | 2019-10-22 14:35 | PROGRESS NOTE ---
DATE: 10/22/2019 SUBJECTIVE: I have seen and examined Ms. Ferris today. Ms. Ferris refers to be doing well. I understand earlier on she was just vomiting. The nurses were concerned that she could have aspirated. Ms. Ferris has not had a bowel movement either. OBJECTIVE: Vital signs: Blood pressure is 130/84, pulse of 111, respirations 20, temperature 97.7 degrees. General: Ms. Ferris is an 84-year-old elderly female. She is in bed, no distress. HEENT: Mucosa is pink and moist. Anicteric. Acyanotic. Neck: Supple. Chest: Air entry is bilaterally reduced. A few crackles in the posterior lung ochoa. Cardiovascular: Irregularly irregular but no murmurs. There is a generator pocket on the left anterior chest wall. Gastrointestinal: Abdomen is soft, nontender. Bowel sounds present. Extremities: No pedal edema. Central nervous system: Patient is awake, alert, has mild right-sided hemiparesis with right homonymous hemianopsia. Skin: Multiple skin keratosis is noted. The patient intake and output, urine output was 800. She is currently positive balance. LABORATORY DATA: Shows hemoglobin is 9.3. Rest of CBC is unremarkable. Chemistry is also reviewed, is unremarkable. An initial chest x-ray which was done this morning did show mild worsening of the left basilar infiltrate/atelectasis. A repeat chest x-ray around 9 shows stable, no changes. Laboratory data has also been reviewed, no changes. ASSESSMENT: 1. Altered mental status on presentation, improved. 2. 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 3. Dysphagia secondary to esophageal stricture. The patient is status post esophagogastroduodenoscopy with dilation. 4. Functional dysphagia with aspiration associated with aspiration pneumonitis. Patient is on antimicrobial therapy. 5. Chronic atrial fibrillation. Patient is rate controlled. Cardiology is on board. 6. Remote history of lung an esophageal cancer. 7. Bilateral carotid atherosclerosis with no significant hemodynamic flow changes. 8. Constipation. We will continue Ms. Ferris with bowel regimen. cc: Lawson Johnson MD
[2019-10-22] MEDS ORDERED: REGLAN IV ONE (17:05)
--- NOTE | 2019-10-22 17:34 | GASTROENTEROLOGY PROGRESS NOTE ---
DATE: 10/22/2019 SUBJECTIVE: At the time of my visit patient was walking in her room with Physical Therapy. She did report some weakness and dizziness. Per nurse report, she has not had a bowel movement since admission. She had an episode of vomiting this morning. Her feeding was held for a short time and has recently been restarted. When I went back in the room patient was sitting up in a chair after walking in the room with Physical Therapy. She denied complaints at present time. Her sister was at the bedside. OBJECTIVE: Vital Signs: Temperature 98 degrees, pulse 90, respirations 20, blood pressure 128/47. General: Patient was awake and alert. She was talking. I was able to understand her. Abdomen: With abdominal binder in place. Binder removed and PEG tube site clean. Bumper was in good position. No redness or edema around the site. Again site was cleaned and abdominal binder was replaced. LABORATORY: Hematology. WBC 7.97, hemoglobin 9.3, hematocrit 30.3, MCV 91.3, platelet 318,000. Chemistry. Sodium 138, potassium 3.5, chloride 98, CO2 29, BUN 17, creatinine 0.3, glucose 134, calcium 8.4, phosphorus 2.1. ASSESSMENT AND PLAN: 1. Altered mental status has improved. 2. Right hemiparesis, improved. Patient has been working with physical therapy. 3. Dysphagia. Patient had EGD with esophageal dilation but she continued to have aspiration. Percutaneous endoscopic gastrostomy tube was placed on 10/21/2019. Continue tube feedings. They were held for short period of time because of an episode of vomiting. Recommend she be upright with feeding. Dietitian has been consulted to help with management. 4. Constipation. Patient has not had a bowel movement since admission. Will give a dose of milk of magnesia. Continue MiraLAX that she has already been receiving. We will repeat milk of magnesia dose tomorrow if she does not have a bowel movement today. Further plans to be made according to her progress. I have discussed this case with Dr. Ugalde. Dictated by DEEP Gilbert for Brennan Ugalde MD cc: DEEP Bauman MD
[2019-10-22] MEDS: ROCEPHIN 1 GM in NS 50 ML IV SCH (21:21)
[2019-10-23] MEDS: CARAFATE LIQUID PO SCH ×4 (01:17→21:05)
[2019-10-23] MEDS: FLAGYL 250 MG/NS 250 MG/50 ML IVPB IV SCH ×4 (03:45→23:04)
[2019-10-23] MEDS: SYNTHROID PO SCH (06:12)
[2019-10-23] MEDS: PRILOSEC ORAL SUSPENSION PO SCH (06:13)
[2019-10-23 06:17] LABS: AGAP 8; ALBUMIN 2.5 g/dL (3.5-5.0); ALKALINE PHOSPHATASE 98 U/L (32-104); BUN 23 mg/dL (8-22); CALCIUM 8.1 mg/dL (8.8-10.2); CHLORIDE 97 mmol/L (98-107); COSMO 278; CREATININE 0.4 mg/dL (0.5-0.9); ESTIMATED GFR > 60; GLUCOSE 115 mg/dL (70-104); GOT 14 U/L (10-30); GPT 5 U/L (10-36); MAGNESIUM 2.4 mg/dL (1.5-2.7); POTASSIUM 3.3 mmol/L (3.5-5.1); SODIUM 137 mmol/L (136-145); TCO2 32 mmol/L (25-35); TOTAL BILIRUBIN 0.53 mg/dL (0.20-1.00); TOTAL PROTEIN 5.1 g/dL (6.3-8.3)
--- NOTE | 2019-10-23 08:21 | Diag Imaging Result Doc PS360 ---
EXAM: KUB ABDOMEN 10/23/2019 HISTORY: SBO TECHNIQUE: KUB COMMENT: There is a large amount of formed stool in the rectosigmoid colon. The small bowel and stomach are not distended. There is a gastrostomy tube. There is a bipolar hip prosthesis on the right. IMPRESSION: Constipation. Electronically signed by Quinten Umaña 10/23/2019 8:19 AM
[2019-10-23] MEDS ORDERED: KLOR-CON POWDER PACKET PEG ONE (08:33)
[2019-10-23] MEDS: MIRALAX PO SCH ×2 (10:13→21:05)
[2019-10-23] MEDS: MUCINEX PO SCH ×2 (10:14→21:06)
[2019-10-23] MEDS: ZINC SULFATE PO SCH ×2 (10:14→21:04)
[2019-10-23] MEDS: VITAMIN C PO SCH (10:14)
[2019-10-23] MEDS: NORVASC PO SCH ×2 (10:14→21:04)
[2019-10-23] MEDS: ELIQUIS PO SCH ×2 (10:15→21:05)
[2019-10-23] MEDS: LOPRESSOR PO SCH ×2 (10:15→21:05)
[2019-10-23] MEDS: PRINIVIL PO SCH (10:15)
[2019-10-23] MEDS: ASPIRIN PO SCH (10:16)
--- NOTE | 2019-10-23 13:25 | PROGRESS NOTE ---
DATE: 10/23/2019 INTERVAL HISTORY: Patient with some hypoxia overnight. Reportedly down to 86. Oxygen O2 turned up to 6 L. Uncertain of the exact cause but it appears to be improved this morning. She is at 97% on 3 L at this point. She remains afebrile, there has been no increase in respiratory symptoms. She had 1 small bowel movement overnight, but remains somewhat constipated. REVIEW OF SYSTEMS: Twelve point review of systems negative except as per interval history. LABS: Sodium 137, potassium 3.3, BUN 23, creatinine 0.4, glucose 115. IMAGING: Abdominal x-ray with ongoing constipation. Chest x-ray pending at this time. VITALS: T-max 98.5 degrees, pulse 75, respirations 18, blood pressure 122/51, O2 saturation reportedly down to 86 on 6 L overnight but improved to 97 on 3 L now. PHYSICAL EXAMINATION: General: No acute distress. Vitals: As above. HEENT: Normocephalic, atraumatic. Moist mucous membranes. No cervical adenopathy. Cardiovascular: Irregular rhythm but normal rate. No murmurs noted. Pulmonary: Essentially clear to auscultation bilaterally. Abdomen: Soft, nontender, nondistended. Bowel sounds positive. PEG tube noted. Extremities: Peripheral pulses intact. No clubbing or cyanosis. Neurologic: Mild right-sided hemiparesis remains although strength is improved from what is noted previously. Cranial nerves appear to be intact aside from some right-sided visual difficulties which are unchanged. No new focal deficits. Psychiatric: Patient awake, alert, cooperative. ASSESSMENT AND PLAN: 1. Left posterior stroke, right hemiparesis, right homonymous hemianopia. The patient's weakness has somewhat improved, although it remains present. Continue working with PT. If her other issues are resolved, then hopefully we will be able to go back to [facility] on Friday. 2. Hypoxic episode overnight. Uncertain what to make of this. The patient is afebrile. She does not have any tachycardia. It appears to be resolved now with O2 saturation in the high 90s on 3 L. Getting a chest x-ray to take a look, but we will not plan on making any changes right now. 3. Aspiration pneumonia. Patient on Rocephin and Flagyl. Hypoxic overnight as noted above, but appears to be resolved or nearly resolved now. Getting chest x-ray and monitoring. Continue those antibiotics for now. 4. Dysphagia. The patient is status post EGD with dilation but still had dysphagia and aspiration, so a PEG tube was placed. Had some nausea and vomiting initially, but no further nausea or vomiting today. Appears to be tolerating tube feeds fairly well. Continue to monitor. 5. Chronic atrial fibrillation. The patient remains rate controlled on metoprolol. 6. Hypokalemia. We will replete potassium and monitor. 7. Hypothyroidism. Continue Synthroid. 8. History of esophageal cancer, likely contributing to her eating issues, but no new ongoing disease.
--- NOTE | 2019-10-23 16:04 | Diag Imaging Result Doc PS360 ---
EXAM: CHEST-PORTABLE 10/23/2019 HISTORY: hypoxia TECHNIQUE: AP portable at 1552 COMMENT: There is cardiomegaly. There is increased density in both lower lung ochoa which is slightly worse than on the previous examination of 10/22/2019. There is worsening consolidation in the retrocardiac region with air bronchograms. IMPRESSION: Worsening pulmonary edema plus minus left lower lobe pneumonia. Electronically signed by Quinten Umaña 10/23/2019 4:01 PM
[2019-10-23] MEDS ORDERED: MILK OF MAGNESIA PO PRN (21:00)
[2019-10-23] MEDS: ROCEPHIN 1 GM in NS 50 ML IV SCH (21:05)
[2019-10-24] MEDS: CARAFATE LIQUID PO SCH ×4 (03:19→20:57)
[2019-10-24] MEDS: FLAGYL 250 MG/NS 250 MG/50 ML IVPB IV SCH ×4 (04:47→22:37)
[2019-10-24 05:49] LABS: AGAP 15; BASO# 0.02 X1000 (0.0-0.2); BASO% 0.1 % (0.0-0.8); BUN 23 mg/dL (8-22); CHLORIDE 98 mmol/L (98-107); COSMO 281; CREATININE 0.4 mg/dL (0.5-0.9); EOS# 0.06 X1000 (0.0-0.7); EOS% 0.4 % (0.0-10.0); ESTIMATED GFR > 60; GLUCOSE 119 mg/dL (70-104); HEMATOCRIT 28.1 % (37.0-47.0); HEMOGLOBIN 8.7 g/dL (12.0-16.0); IMM GRAN# 0.08 X1000 (0.0-0.04); IMM GRAN% 0.5 % (0.0-0.5); LYMPH# 0.68 X1000 (1.2-3.4); LYMPH% 4.6 % (20.5-51.1); MCH 29.3 PG (27-31); MCV 94.6 FL (81-99); MONO% 6.1 % (1.7-9.3); MPV 11.3 FL (7.4-10.4); NEUT# 12.91 X1000 (1.4-6.5); NEUT% 88.3 % (42.2-75.2); PLT 268 X1000 (130-400); RBC 2.97 XMIL (4.2-5.4); RDW 18.2 % (11.5-14.5); SODIUM 138 mmol/L (136-145); TCO2 25 mmol/L (25-35); WBC 14.65 X1000 (4.8-10.8)
[2019-10-24 05:50] LABS: POTASSIUM 4.5 mmol/L (3.5-5.1)
[2019-10-24] MEDS: SYNTHROID PO SCH (06:21)
[2019-10-24] MEDS: PRILOSEC ORAL SUSPENSION PO SCH (06:21)
[2019-10-24] MEDS ORDERED: LASIX IV ONE (07:20)
[2019-10-24] MEDS: NORVASC PO SCH ×2 (09:05→20:57)
[2019-10-24] MEDS: ZINC SULFATE PO SCH ×2 (09:05→20:57)
[2019-10-24] MEDS: ASPIRIN PO SCH (09:05)
[2019-10-24] MEDS: MUCINEX PO SCH ×2 (09:05→20:58)
[2019-10-24] MEDS: LOPRESSOR PO SCH ×2 (09:05→20:57)
[2019-10-24] MEDS: ELIQUIS PO SCH ×2 (09:06→20:57)
[2019-10-24] MEDS: MIRALAX PO SCH ×2 (09:06→20:58)
[2019-10-24] MEDS: VITAMIN C PO SCH (09:06)
[2019-10-24] MEDS: PRINIVIL PO SCH (09:06)
--- NOTE | 2019-10-24 13:46 | PROGRESS NOTE ---
DATE: 10/24/2019 INTERVAL HISTORY: The patient's oxygenation is improving. Right-sided weakness stable. Tolerating tube feeds. No acute events. No new complaints. REVIEW OF SYSTEMS: Twelve point review of systems negative except as per interval history. LABS: WBC 14.6, hemoglobin 8.7, hematocrit 28.1, platelets 268,000. Sodium 138, potassium 4.5, BUN 23, creatinine 0.4, glucose 119. Chest x-ray with minimal worsening of pulmonary edema versus pneumonia in the left lower lobe. VITALS: T-max 98.2 degrees, pulse 82, respirations 24, blood pressure 145/58, O2 saturation 94% on 3 L by nasal cannula. PHYSICAL EXAMINATION: General: No acute distress. Vitals: As above. HEENT: Normocephalic, atraumatic. Moist mucous membranes. No cervical adenopathy. Cardiovascular: Irregular rhythm but normal rate. No murmurs noted. Pulmonary: Minimal bibasilar crackles, otherwise clear to auscultation bilaterally. Abdomen: Soft, nontender, nondistended. Bowel sounds positive. PEG tube noted and looks good. Extremities: Peripheral pulses intact. No clubbing or cyanosis. Neurologic: Mild right-sided weakness, stable. Cranial nerves intact aside from some also stable right-sided visual difficulties which are pretty mild. Psychiatric: Patient is asleep but easily arousable. Alert and cooperative. ASSESSMENT AND PLAN: 1. Left posterior stroke, right hemiparesis, right homonymous hemianopsia. The patient's weakness and visual symptoms somewhat improved, although still present. Continue working with physical therapy. If respiratory status remains stable, then hopefully we will be able to go back to [facility] in the next 24 to 48 hours 48 hours. 2. Aspiration pneumonia. The patient initially was placed on Rocephin and Flagyl. Two nights ago, had increased oxygen requirements with acute hypoxic respiratory failure but it was already improving yesterday morning and is further improved now. Chest x-ray did show some possible slight worsening of her left lower lobe aspiration pneumonia but as she is symptomatically improved and her oxygenation is markedly improved, we will hold off on changing antibiotics at this time. If the patient's oxygen worsens again or she begins having fever or other sign of uncontrolled infections, we will likely change from Rocephin and Flagyl to vancomycin and Zosyn. I do suspect that the cause for transient hypoxia a couple nights ago was another aspiration event but she seems to be improving. Patient with tube feeds and permanent percutaneous endoscopic gastrostomy tube, and will remain nothing per oral. 3. Dysphagia. Patient had esophagogastroduodenoscopy with dilation but continued to have dysphagia and aspiration. so a percutaneous endoscopic gastrostomy tube was placed. Tolerating tube feeds well so far. May still be having intermittent aspiration as above, however. 4. Chronic atrial fibrillation. Remains rate controlled on metoprolol. Monitor. 5. Hypokalemia, improved status post repletion. Continue to monitor. 6. Hypothyroidism. Continue Synthroid. 7. History of esophageal cancer, may be contributing to her dysphagia issues but no residual disease that we know of. [facility] HOSPITALTeresa
[2019-10-24] MEDS: ROCEPHIN 1 GM in NS 50 ML IV SCH (20:58)
[2019-10-25] MEDS: CARAFATE LIQUID PO SCH ×4 (02:59→20:57)
[2019-10-25] MEDS: FLAGYL 250 MG/NS 250 MG/50 ML IVPB IV SCH ×2 (03:00→10:16)
[2019-10-25 06:01] LABS: BASO# 0.01 X1000 (0.0-0.2); BASO% 0.1 % (0.0-0.8); EOS# 0.06 X1000 (0.0-0.7); EOS% 0.4 % (0.0-10.0); HEMATOCRIT 26.5 % (37.0-47.0); IMM GRAN# 0.06 X1000 (0.0-0.04); IMM GRAN% 0.4 % (0.0-0.5); LYMPH# 0.58 X1000 (1.2-3.4); LYMPH% 4.2 % (20.5-51.1); MCH 28.1 PG (27-31); MCHC 30.2 g/dL (33-37); MONO# 1.04 X1000 (0.11-0.59); MONO% 7.5 % (1.7-9.3); MPV 11.3 FL (7.4-10.4); NEUT# 12.13 X1000 (1.4-6.5); NEUT% 87.4 % (42.2-75.2); PLT 309 X1000 (130-400); RBC 2.85 XMIL (4.2-5.4); RDW 17.7 % (11.5-14.5); WBC 13.88 X1000 (4.8-10.8)
[2019-10-25 06:15] LABS: AGAP 10; BUN 22 mg/dL (8-22); CALCIUM 8.2 mg/dL (8.8-10.2); CHLORIDE 95 mmol/L (98-107); COSMO 278; CREATININE 0.4 mg/dL (0.5-0.9); ESTIMATED GFR > 60; GLUCOSE 113 mg/dL (70-104); POTASSIUM 3.3 mmol/L (3.5-5.1); SODIUM 137 mmol/L (136-145); TCO2 32 mmol/L (25-35)
[2019-10-25] MEDS: PRILOSEC ORAL SUSPENSION PO SCH (06:24)
[2019-10-25] MEDS: SYNTHROID PO SCH (06:24)
[2019-10-25 07:35] LABS: LYMPHS 10 % (21-51); MONO 4 % (1-9); NRBC 1 % (0-0); SEGS 82 % (42-75)
--- NOTE | 2019-10-25 07:37 | Diag Imaging Result Doc PS360 ---
EXAM: CHEST-PORTABLE INDICATION: aspiration TECHNIQUE: One view COMPARISON: 10/23/2019 FINDINGS: Bilateral airspace consolidations with a mid and lower lung zone predominance are unchanged. No new consolidation is appreciated. Cardiac silhouette is stable. IMPRESSION: Stable chest. Electronically signed by Ino Mann 10/25/2019 7:35 AM
[2019-10-25] MEDS: MUCINEX PO SCH ×2 (10:17→20:57)
[2019-10-25] MEDS: ZINC SULFATE PO SCH ×2 (10:17→20:58)
[2019-10-25] MEDS: ASPIRIN PO SCH (10:17)
[2019-10-25] MEDS: NORVASC PO SCH ×2 (10:17→20:57)
[2019-10-25] MEDS: VITAMIN C PO SCH (10:17)
[2019-10-25] MEDS: ELIQUIS PO SCH ×2 (10:17→20:57)
[2019-10-25] MEDS: MIRALAX PO SCH ×2 (10:17→20:58)
[2019-10-25] MEDS: PRINIVIL PO SCH (10:17)
[2019-10-25] MEDS: LOPRESSOR PO SCH ×2 (10:18→20:57)
--- NOTE | 2019-10-25 13:08 | GASTROENTEROLOGY PROGRESS NOTE ---
DATE: 10/25/2019 SUBJECTIVE: The patient was awake and alert at the time of my visit. She had family at the bedside. Per family report, she has tolerated her tube feedings. They state she has had several bowel movements over the weekend. OBJECTIVE: Vital Signs: Temperature 98.2 degrees, pulse 70, respirations 22, blood pressure 148/66. General: The patient is awake and alert. No acute distress. Abdomen: Abdominal binder in place. PEG tube site clean, dry, and intact. No tenderness or redness noted around the PEG tube site. LABORATORY DATA: Hematology: WBC 13.88, hemoglobin 8.0, hematocrit 26.5, MCV 93.0, platelets 309,000. Chemistry: Sodium 137, potassium 3.3, chloride 95, CO2 of 32, BUN 22, creatinine 0.4, glucose 113, calcium 2. ASSESSMENT AND PLAN: 1. Recent dysphagia, aspiration pneumonia. The patient required percutaneous endoscopic gastrostomy tube placement last week. So far, she is tolerating her tube feedings. 2. Constipation. The patient was started on MiraLAX and given milk of magnesia on Friday. She has had several bowel movements over the weekend. Continue current management. 3. Left stroke, right hemiparesis. Working with Physical Therapy. 4. Chronic atrial fibrillation, on anticoagulation and medication. The patient is tolerating her tube feedings. Percutaneous endoscopic gastrostomy site looks good. Will continue to follow, and further plans will be made according to her progress. I have discussed this case with Dr. Ugalde. Dictated by DEEP Gilbert for Brennan Ugalde MD cc: DEEP Bauman MD [facility]
--- NOTE | 2019-10-25 16:13 | PROGRESS NOTE ---
DATE: 10/25/2019 I have seen and examined Ms. Ferris this morning, Ms Ferris refers to be doing well denies any new complaints. I understand that she has not vomited anymore. She has been tolerating her tube feedings. OBJECTIVE: Vitals: Blood pressure 148/66, pulse of 72, respiration is 22, temperature 98.2 degrees. General: Ms. Ferris 84-year-old elderly female she is in bed no distress. Mucosa is pink and moist. Anicteric. Acyanotic. Neck: Supple. Chest: Air entry was bilateral reduced, a few crackles in the posterior lung ochoa. Cardiovascular: Irregularly irregular but no murmurs. There is a generator pocket on the left anterior chest wall. Abdomen: Soft, nontender. Bowel sounds present. PEG tube is in place. [employer]ING [employer]ER: Patient is awake, alert. Still has mild right side hemiparesis with right homonymous hemianopsia. Skin: Has multiple keratoses noted. LABORATORY DATA: CBC shows WBC is trending down, 80% of neutrophils. Potassium is 3.3, rest of chemistry is unremarkable. ASSESSMENT: 1. Altered mental status on presentation improved. 2. 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 3. Dysphagia, patient is status post EGD with esophageal stricture dilation. Patient also does have functional dysphagia leading to aspirations. She underwent percutaneous endoscopic gastrostomy tube placement which is tolerating well. 4. Chronic atrial fibrillation, currently rate controlled. 5. Remote history of lung and esophageal cancer. 6. Bilateral carotid atherosclerosis with no significant hemodynamic flow limitations. 7. Constipation improved. 8. Nausea, vomiting resolved. 9. Aspiration pneumonia. Patient is currently on Rocephin and Flagyl. I think this can be transitioned to Augmentin and Flagyl for outpatient management. So in general I think Ms. Ferris is doing a lot better. No more nauseation or vomiting. She is tolerating her tube feedings. She had 40 feet with contact guard assist this morning with physical therapy. We are going to switch Ms. Ferris antibiotics to oral Augmentin and metronidazole. If she tolerates them well she can be discharged tomorrow. cc: Lawson Johnson MD [facility]
[2019-10-25] MEDS ORDERED: FLAGYL ONE (19:58)
[2019-10-25] MEDS: AUGMENTIN LIQUID PEG SCH (20:56)
[2019-10-25] MEDS: FLAGYL PEG SCH (20:59)
[2019-10-26] MEDS: CARAFATE LIQUID PO SCH ×3 (02:40→14:14)
[2019-10-26 05:19] LABS: HEMATOCRIT 24.6 % (37.0-47.0); HEMOGLOBIN 7.6 g/dL (12.0-16.0); MCH 29.1 PG (27-31); MCHC 30.9 g/dL (33-37); MCV 94.3 FL (81-99); RBC 2.61 XMIL (4.2-5.4); RDW 17.7 % (11.5-14.5); WBC 9.47 X1000 (4.8-10.8)
[2019-10-26 05:42] LABS: AGAP 9; ALBUMIN 2.5 g/dL (3.5-5.0); BUN 22 mg/dL (8-22); CALCIUM 8.1 mg/dL (8.8-10.2); CHLORIDE 97 mmol/L (98-107); COSMO 289; CREATININE 0.3 mg/dL (0.5-0.9); ESTIMATED GFR > 60; GLUCOSE 117 mg/dL (70-104); POTASSIUM 3.5 mmol/L (3.5-5.1); SODIUM 143 mmol/L (136-145); TCO2 37 mmol/L (25-35)
[2019-10-26] MEDS: SYNTHROID PO SCH (06:13)
[2019-10-26] MEDS: PRILOSEC ORAL SUSPENSION PO SCH (06:13)
[2019-10-26] MEDS: FLAGYL PEG SCH ×2 (06:13→14:14)
[2019-10-26] MEDS: NORVASC PO SCH (10:43)
[2019-10-26] MEDS: VITAMIN C PO SCH (10:44)
[2019-10-26] MEDS: ELIQUIS PO SCH (10:44)
[2019-10-26] MEDS: ASPIRIN PO SCH (10:44)
[2019-10-26] MEDS: AUGMENTIN LIQUID PEG SCH (10:44)
[2019-10-26] MEDS: MUCINEX PO SCH (10:44)
[2019-10-26] MEDS: PRINIVIL PO SCH (10:44)
[2019-10-26] MEDS: ZINC SULFATE PO SCH (10:44)
[2019-10-26] MEDS: LOPRESSOR PO SCH (10:45)
[2019-10-26] MEDS: MIRALAX PO SCH (10:45)
--- NOTE | 2019-10-26 14:14 | DISCHARGE SUMMARY ---
ADMISSION DATE: 10/12/2019 DISCHARGE DATE: 10/26/2019 REASON FOR ADMISSION: She came from [facility], discharged back to [facility] long-term [facility]. Her doctor is Dr. Wilma Chen. She came with a syncopal spell, slurred speech, right-sided weakness on 10/12/2019. HISTORY OF PRESENT ILLNESS: Ms. Sandra Ferris is an 84-year-old female with a medical history of chronic atrial fibrillation, permanent pacemaker, who was most recently admitted this month after she had a fall and fractured her right hip along with right wrist and had a pneumothorax for rib fracture. She was sent to [facility]. I believe she was on Xarelto prior to this happening. It does not appear that she was resumed on Xarelto apparently. The report was at 3:50 the morning of admission, morning staff found that she was unconscious for about 10 minutes and that she was going in and out of consciousness and they called the ambulance. They notified the family around 5 a.m. When she got to the emergency room, on exam, she was alert, oriented to name. She was able to follow commands. Strength as far as her shoulders was equal in upper shoulders. 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 She had an old left CVA by report. Family was not unaware of an old CVA, never really noticed that she was ever weak on the right side. PAST MEDICAL HISTORY: 1. Suspect old left CVA located in the left frontal and parietal lobes. 2. Esophageal cancer. 3. Skin cancer. 4. Lung cancer. 5. Atrial fibrillation that is chronic. 6. Hypertension. 7. Hypothyroidism. 8. Recent fall with fracture of the right wrist, right hip, pneumothorax on the right. PAST SURGICAL HISTORY: 1. Right hip hemiarthroplasty with bipolar hip implant, anterior approach. 2. Open reduction and internal fixation with a volar locking plate of the right wrist. 3. section. 4. Permanent pacemaker. 5. Hypertension. 6. Left foot surgery. 7. Recent stent placement in the left carotid artery, I believe that was back in 2017. ADMISSION DIAGNOSES: 1. Possible new cerebrovascular accident versus worsening old cerebrovascular accident, right- sided weakness. The plan was to get a head CT with contrast. Unable to get an MRI secondary to pacemaker. History of carotid artery stenosis with stent and endarterectomy, so the plan was to examine the carotids and get a cardiac ultrasound. Neurology to get involved. 2. Chronic atrial fibrillation, rate was controlled at the time of admission. 3. Recent fall, right hip fracture, right wrist fracture, currently stable. Dr. Abdi is the orthopedic surgeon. She was undergoing rehabilitation. 4. Hypertension. Blood pressures to be followed, history of hypertension. 5. Hypothyroidism, history of primary hypothyroidism. HOSPITAL COURSE: 1. Neurology saw on 10/12/2019. Impression was a mixture of relatively mild, somewhat inconsistent findings including increased tone in the left arm, some ataxia of the arms, a little bit worse on the left, inattention to visual field testing, some right and left distinction with digital distinction problems. Family reports she is consistently right- handed, so language should be in the left hemisphere, so these features likely are insignificant or represent problems in each hemisphere. She had a modified barium swallow and she did have some mild aspiration. The patient eventually swallowed the liquid barium after some delay, the barium demonstrate some aspiration. Gastroenterology was asked to see 10/13/2019. They evaluate recurrent fall and hip fracture, right wrist fracture along with right pneumothorax in the recent past. 2. Dysphagia. A modified barium swallow showed some mild aspiration. 3. Aphasia, CT scan did not show any evidence of new stroke. Unable to do MRI because of pacemaker. 4. Chronic atrial fibrillation. 5. History of lung cancer and esophageal cancer. She has had esophageal dilatation in the past, so the patient had been given some Clinimix and held n.p.o. Dr. Ugalde considered the possibility of EGD, require NG feeding or percutaneous endoscopic gastrostomy tube placement and then they planned EGD which I believe was done on 10/15/2019. Moderate gastritis was found in the gastric antrum. The stomach otherwise appeared normal. Duodenal mucosa showed no abnormalities There was a short stricture 20 cm from the incisor. The stricture was dilated using a 14 mm or 42-[place] Savary dilator and guidewire. Esophagus was otherwise normal. Gastritis again appreciated in the gastric antrum. Duodenal mucosa unremarkable. The patient showed some improvement. Cardiology was asked to see given her chronic atrial fibrillation, recommend anticoagulation for elevated [id number] score, so she is on Eliquis 2.5 mg twice a day. In the past, she has been on anticoagulation therapy; however, stopped recently because of fall, fractures, requiring esophageal dilatation recently. Echocardiogram was obtained to assess cardiac and valvular function. Obtained a CT scan without contrast to look for any lung pathology. CT of the chest on 10/18/2019, worsening pneumonia. No pneumothorax. Some cardiomegaly and severe atherosclerosis. Continued antibiotics. She seemed to improve. Chest x-ray on 10/23/2019, worsening pulmonary edema plus-minus left lower lobe pneumonia, and then follow-up chest x-ray on 10/25/2019 with stable bilateral airspace consolidations in mid and lower lung zone predominance, which is unchanged. Clinically, she was breathing well and family wanted to get her back to [facility]. Discharge revealed she had recent dysphagia, aspiration pneumonia and the patient required percutaneous endoscopic gastrostomy tube placement which she got last week. She is tolerating her tube feedings. 6. Constipation. Started her on MiraLAX and milk of magnesia. 7. Left sided stroke, right hemiparesis. Continue physical therapy. 8. Chronic atrial fibrillation, rate is controlled and she is on anticoagulation. DISCHARGE DISPOSITION: We will get her back to [facility]. We will keep her on her oxygen. DISCHARGE MEDICATIONS: Tylenol 650 mg every 6 hours p.r.n., Norvasc 2.5 mg b.i.d., Augmentin 600 mg per PEG tube every 12 hours which we will do another 2 weeks, Eliquis 2.5 mg p.o. b.i.d., vitamin C 500 mg a day, aspirin 81 mg a day, Mucinex 600 mg b.i.d., Synthroid 50 mcg daily, Prinivil 20 mg a day, Lopressor 50 mg b.i.d., and we will give her Flagyl 500 mg every 8 hours, also do that for another 2 weeks, MiraLAX 17 g p.o. b.i.d., Carafate 1 g q.6 hours, zinc sulfate 220 mg p.o. b.i.d. We will keep her on her O2 at 2 L per nasal cannula. cc: Alvin Clark MD
--- NOTE | 2019-10-26 15:06 | GASTROENTEROLOGY PROGRESS NOTE ---
DATE: 10/26/2019 SUBJECTIVE: Patient was resting. She did open her eyes when I entered the room. She was in no acute distress. I believe she is tolerating her tube feedings. She has had a drop in her hemoglobin and hematocrit today. There was a documented green, dark, tarry stool yesterday but no mention of the color of her bowel movement today. She had went almost a week without a bowel movement until receiving laxatives last Friday and has had several bowel movements since then. No noted abdominal pain. OBJECTIVE: Vital Signs: Temperature 98 degrees, pulse 86, respirations 18, blood pressure 158/68. General: Patient is awake and alert. Abdomen: Abdominal binder in place. PEG tube site with no redness or erythema noted. LABORATORY: Hematology 9.47, hemoglobin 7.6, hematocrit 24.6, MCV 94.3, platelets 287,000. Chemistry; sodium 143, potassium 3.5, chloride 97, CO2 37, BUN 22, creatinine 0.3, glucose 117, calcium 8.1. ASSESSMENT AND PLAN: 1. Recent dysphagia, aspiration pneumonia. Patient had a PEG tube placed last week. She is currently tolerating her tube feedings. 2. Constipation. Patient was started on MiraLAX and received a dose of milk of magnesia last Friday. She has now had several bowel movements. 3. Anemia. Patient has had a drop in her hemoglobin and hematocrit. She is on aspirin and Eliquis. We will continue to monitor. Transfuse packed red blood cells if needed. Monitor hemoglobin and hematocrit and for any signs of active bleeding. 4. History of left stroke/right hemiparesis. She has been working with physical therapy. 5. Chronic atrial fibrillation on anticoagulation and medication. PLAN: Patient is tolerating her tube feeding. She is having bowel movements. She has had a slight drop in her hemoglobin and hematocrit. We will monitor and further plans to be made according to her progress. I have discussed this case with Dr. Ugalde. Dictated by DEEP Gilbert for Brennan Ugalde MD cc: DEEP Bauman MD
[2019-10-26 16:15] VITALS: BP 159/63
== END 2019-10-26 16:25 | DRG 64 ==
LOC: ED 05:44 → SUATTDRO 09:57 → EDIPHOLD 09:57 → 1N 13:52
PROVIDERS: ATTEND Emergency Medicine